=== PATIENT | female | born 1935 | race Caucasian/White ===

== ENCOUNTER → 2018-06-12 15:59 | Outpatient (CLI) | payer MEDICARE, OTHER, SELFPAY ==
[2018-06-12 17:53] LABS: RBC /Synovial Fluid 0.196 10^6/uL (0); Synovial Fld Mononuclear WBC % 64.3 %; Synovial Fld Polynuclear WBC # 0.467 10^3/ul; Synovial Fld Polynuclear WBC % 35.7 %
[2018-06-12 19:14] LABS: AUTO B FLUID DILUENT BKGD CT WBC <0.1 RBC <0.01 (W<.1,R<.01); Appearance /Synovial Fluid Turbid (CLEAR); Color / Synovial Fluid Red (Pale Yellow); Lymph 17 %; Monocyte /Synovial Fluid 32 %; Neutrophil 42 % (0-25); Other Cell /Synovial Fluid 9 %; Viscosity / Synovial Fluid Mod. Viscous (HIGH)
[2018-06-12 19:16] LABS: Body Fluid QC Type(s) BFQC2
[2018-06-13 13:08] LABS: Pathologist Comment Reviewed
== END ==
PROVIDERS: Family Provider Family Medicine; PCP Family Medicine; Referring Provider Physician Assistant; Visit Provider Physician Assistant
DX: M25.461 Effusion, right knee (principal); Z96.651 Presence of right artificial knee joint
CPT/HCPCS: 87015; 87070; 87075; 87101; 87116; 87205; 87206; 89050; 89051

== ENCOUNTER → 2018-06-26 13:00 | Outpatient (CLI) | payer MEDICARE, OTHER, SELFPAY ==
--- NOTE | 2018-06-26 13:07 | CT_ITS ---
Exam: Noncontrast CT of the right knee. HISTORY: Total knee arthroplasty, with pain. COMPARISON: None FINDINGS: Exam is limited by metal artifact from a medial partial knee arthroplasty. No definite abnormality or complication is seen related to the medial partial knee arthroplasty. The medial femoral condyle component and the medial tibial plateau components align normally and show no evidence for loosening. However, there is markedly abnormal appearance of the lateral compartment. There is comminuted markedly depressed fracture of the articular surface of the lateral tibial plateau. There is a hemispheric excavation approximately 1 cm deep from the level of the normal expected position of the articular surface, to the caudal margin of the fracture. There is also an abnormal appearance of the lateral femoral condyle suspicious for avascular necrosis. There is narrowing of the lateral tibiofemoral compartment. Normal position of the patella. There is moderate patellofemoral osteoarthritis. There is a moderate effusion. There is generalized demineralization. Normal proximal tibiofibular articulation. CT/Extremity Lower without Contra IMPRESSION: Images are degraded by metal artifact. However there is clearly comminuted markedly depressed fracture of the lateral tibial plateau. Possible avascular necrosis of the lateral femoral condyle. Effusion. Electronically Signed: Jose Donaldson MD at 21:58 EST , Service support ,
== END ==
PROVIDERS: Family Provider Family Medicine; PCP Family Medicine; Referring Provider Specialist; Visit Provider Specialist
DX: Z96.651 Presence of right artificial knee joint (principal)
CPT/HCPCS: 73700

== ENCOUNTER 2018-07-23 07:20 | Inpatient (IN) | payer MEDICARE, OTHER, SELFPAY ==
--- NOTE | 2018-07-11 14:50 | EKG12_ITS ---
Test Reason : Blood Pressure : / mmHG Vent. Rate : 087 BPM Atrial Rate : 087 BPM P-R Int : 150 ms QRS Dur : 066 ms QT Int : 356 ms P-R-T Axes : 035 003 011 degrees QTc Int : 428 ms Poor data quality, interpretation may be adversely affected Normal sinus rhythm No previous ECGs available Confirmed by ETIENNE BAILEY MD ([id number]), film editor supervisor EDISON RODRÍGUEZ ([id number]) on 07/15/2018 4:01:23 PM Also confirmed by ETIENNE BAILEY MD ([id number]), film editor supervisor EDISON RODRÍGUEZ ([id number]) on 07/15/2018 4:10:20 PM Referred By: Jer Castle Confirmed By:ETIENNE BAILEY MD
[2018-07-11 14:57] VITALS: BP 150/83; PULSE 89; RESP 18; TEMP 36.7; O2SAT 98; BMI 32.4
[2018-07-11 15:38] LABS: Absolute Lymphocyte Count 1.58 X10^3/ul (0.83-4.51); Absolute Neutrophil Count 6.5 X10^3/uL (2.0-7.7); Basophil# 0.02 X10^3/uL; Basophil% 0.2 % (0-1); Eosinophil# 0.06 X10^3/uL; Eosinophils% 0.7 % (0-5); Hematocrit 34.3 % (37-47); Hemoglobin 11.3 g/dl (12.0-15.0); Lymphocyte # 1.58 X10^3/ul (4.0); Lymphocyte % 17.8 % (19-41); Mean Corp Hgb Conc 32.9 g/gl (32-36); Mean Corpuscular Volume 87.9 fL (81-99); Mean Platelet Vol. 9.5 fl (6.2-12.0); Monocyte# 0.71 X10^3/uL; Neutrophil # 6.51 X10^3/uL (2.7-7.7); Neutrophil % 73.2 % (47-70); Platelet Count 340 K/mm3 (150-450); RBC Distribution Width CV 14.3 % (11.6-14.6); RBC Distribution Width SD 45.9 fl (35.1-43.9); White Blood Count 8.9 K/mm3 (4.4-11.0)
[2018-07-11 15:42] LABS: POSITIVE COUNT NO; POSITIVE DIFFERENTIAL NO; POSITIVE MORPHOLOGY NO
[2018-07-11 16:03] LABS: Anion Gap 6 (5-15); BUN 20 mg/dL (7-18); BUN/Creat Ratio 26.8 RATIO (10-20); Chloride 99 mmol/L (98-107); Creatinine, Serum 0.74 mg/dL (0.55-1.02); EST Glomerular Filtration Rate 79 mL/min (>60); Est Glom Filt Rate - Afr Amer 95 mL/min (>60); Estimated Creatinine Clearance 45.78 ml/min; Glucose 94 mg/dL (74-106); Potassium 3.7 mmol/L (3.5-5.1); Sodium Level 133 mmol/L (136-145)
--- NOTE | 2018-07-11 22:35 | HP.PCM_ITS ---
History and Physical DATE OF SURGERY: 07/23/2018 SCHEDULED PROCEDURE: Revision right unicompartmental knee replacement to right total knee arthroplasty HISTORY OF PRESENT ILLNESS: This is an 82-year-old female who has been having ongoing right knee pain since January 2018. Patient underwent a previous right unicompartmental knee replacement by Dr. Andi Norton on January 18, 2009. Patient does not recall any new trauma or injury. Patient states her pain has been constant, dull, aching, sharp, stabbing, sore. Pain is increased with stairs, driving, sitting for extended periods of time, and walking. Patient has difficult time with activities of daily living that require bathing, getting dressed, housework, shopping. She has tripped/stumbled secondary to her knee pain. She has very difficult time doing anything with activities of daily living. Patient did have a previous aspiration of the right knee which was negative for infection. She has been through physical therapy for the knee. She does have increasing pain on the left side now. Patient has tried rest, ice, elevation with minimal relief. She has been on oral medications consisting of meloxicam, tramadol, Tylenol with minimal relief. Patient states she has been using a cane, walker, and wheelchair due to the pain. She has tried a brace in the past without relief. Patient did have a CT scan of the right knee which did confirm lateral tibial plateau fracture likely related to subchondral avascular necrosis. Her pain can reach as high as a 10/10. Patient has medical history pertinent for hypertension. She currently denies chest pain, shortness of breath, fevers chills, recent infections. We are obtaining surgical clearance from patient's primary care physician. After failing conservative measures and discussing treatment options with Dr. Jer Castle, the patient would like to proceed with a revision right unicompartmental knee replacement to a total knee arthroplasty. REVIEW OF SYSTEMS: ROS: Const: Denies anorexia, change in appetite, fever, hard of hearing, vision problems and weight change. CV: Denies chest pain, heart murmur, irregular heartbeat and peripheral vascular disease. Resp: Denies asthma, cough, pneumonia, sleep apnea, SOB, tuberculosis and wheezing. GI: Denies constipation, diarrhea, difficulty swallowing, heartburn, nausea, b loody stools and vomiting. : Urinary: reports incontinence. Musculo: Denies leg swelling, limp, trouble walking and weakness. Skin: Denies Raynaud's, history of shingles and tattoo. Neuro: Denies ambulatory dysfunction, dizziness, numbness/tingling and tremor. Psych: Denies anxiety, depression, insomnia, mental illness and stress. Gamal/Lymph: Denies anemia, bleeding/bruising tendency and past transfusion. Reviewed, no changes. PAST MEDICAL HISTORY: Advance Care Plan: Other Directive, POA Effective Date: 06/20/2016 Other Directive, LIVING WILL Effective Date: 06/20/2016 PMH: Medical Problems: Arthritis Cancer - skin High Blood Pressure, Hypercholesterolemia Accidents: RT Wrist FX - (02/04/2012) Compression FX - (10/2012) FALL LT Wrist FX - (10/01/2016) Surgical Hx: RT Knee Uni - (01/18/2009) [facility] RT Foot Surgery - (05/2011) [facility] RT Cataract Surgery - (01/28/2012) DR. NELSON Anesthesia Complications: None Assistive Devices: Brace, Cane, Glasses Reviewed, no changes. SOCIAL HISTORY: SH: Marital: .Occupation: Retired.Work Status: Retired.Hand Dominance: Right- handed. Personal Habits: Smoking: Patient has never smoked.Cigarette Use: Never.Alcohol: Denies use.Drug Use: Denies Use.Enjoy Exercising: Exercises 1-3 x/month. Reviewed, no changes. VITALS: Ht: 57.5 Wt: 150lb Wt k.040 BMI: 31.9 BP: 148/78 Pulse: 84 Resp: 18 T: 97.6 T: 36.4C ALLERGIES: Sulfa Bactrim MEDICATIONS: Crestor 10 mg 1 po DAILY, Fish Oil 1200 mg 1-2 po qday, Vitamin D 1000 Unit 1 tab PO daily, Caleb Low Strength 81 mg 1 tab PO daily, Calcium 600 600 mg 1 tab PO bid, Preservision/Lutein 1 po bid, Centrum Silver Ultra Womens daily, Norvasc 5 mg 1 tab PO daily, Hydrochlorothiazide 12.5 mg, Latanoprost 0.005 %, Amoxicillin 500 mg 4 by mouth 1 h prior to dental procedure, Meloxicam 7.5 mg 1 by mouth twice a day, Tramadol HCL 50 mg 1-2 by mouth every 6 hours as needed pain PRE-OP EXAM: General appearance:NORMAL Other: Eyes: Conjunctivae and lids: NORMAL Pupils: ERR Ears, Nose, Mouth, and Throat: NORMAL Other: Inspection of lips, teeth and gums: NORMAL Other: Neck: Examination of neck: no masses noted. Respiratory: Assessment of respiratory effort: NORMAL Other: Auscultation of lungs: clear to auscultation no wheezes, rhonchi or rales. Cardiovascular: Auscultation of heart: regular rate and rhythm, no murmurs, gallops or rubs. Gastrointestinal: Exam of abdomen: soft, nontender, nondistended bowel sounds present. PHYSICAL EXAMINATION: A preoperative visit patient currently presents in a wheelchair. Patient does have valgus alignment of the right knee. This is correctable on exam. Range of motion: 0 of extension to 100 flexion. Previous incision is well healed without any erythema or signs of infection. Patient does have effusion in the right knee. She has tenderness to palpation along the medial lateral joint line. Crepitus with range of motion. IMAGING STUDIES: 1. X-rays of the right knee reveal a stable well fixed right medial compartment partial knee replacement. There does appear to be progressive joint space narrowing of patellofemoral joint with loss of joint space, subchondral sclerosis, as well as subchondral sclerosis in the lateral compartment. There is radio density concerning for stress fracture which is healing and the proximal condyle of the tibia. 2. CT scan of the right knee did reveal lateral tibial plateau fracture likely related to subchondral avascular necrosis and collapse of the articular surface with bone void underneath. There is similar appearance of the distal femoral condyle without subchondral collapse consistent with avascular necrosis. IMPRESSION: 1. Painful right knee unicompartmental replacement 2. Lateral tibial plateau fracture right knee with avascular necrosis 3. Left knee osteoarthritis 4. Hypertension 5. Hypercholesterolemia PLAN: Dr. Jer Castle did discuss and review with the patient all treatment options including surgical versus nonsurgical options. Patient does wish to proceed with the above-stated procedure. Potential risks, benefits, and complications of the procedure were discussed in detail including but not limited to , infection, nerve and blood vessel damage, persistent pain, numbness, tingling, paresthesias, blood clot, pulmonary embolism, and requirement for possible further surgery. The patient expressed full understanding and has no further questions for the doctor. Patient does agree to proceed with the above-stated procedure and has signed the surgery consent form. This dictation was created using voice recognition software. Phonetic and/or grammatical errors may exist.. ___ I have re-examined the patient. There are no clinical changes since date of exam. ___ See progress notes for changes. ___ Dictated on admission Date: Time: Signature:
[2018-07-23] VITALS (12 sets, daily range): BP systolic 96–149; BP diastolic 47–95; PULSE 66–106; RESP 16–20; TEMP 36.2–37; O2SAT 95–100; BMI 32.4
[2018-07-23] MEDS: Acetaminophen 500 MG Tablet 1000 MG PO ×3 (08:12→22:22)
[2018-07-23] MEDS: Lactated Ringers 1,000 ML 999 ML IV ×2 (08:30→09:30)
[2018-07-23] MEDS: Cefazolin 2 GM in 0.9% Normal Saline 100 ML IV (09:22)
[2018-07-23] MEDS: Scopolamine 1mg/72hr Patch 1 PATCH TD (12:53)
--- NOTE | 2018-07-23 13:12 | RAD_ITS ---
STUDY: X-RAY - RIGHT KNEE REASON FOR EXAM: Female, 82 years old. Post op total knee revision TECHNIQUE: 2 view(s) of the knee. COMPARISON: 06/26/2018. Findings: There is a recent total knee arthroplasty. The femoral and tibial components appear in satisfactory position. There has been patellar resurfacing. There is soft tissue air consistent with the recent surgery. The visualized femoral, tibial, and fibular shafts are unremarkable. RAD/Knee 1 or 2 Views IMPRESSION: Satisfactory appearance of a total knee arthroplasty. Electronically Signed: Jose Donaldson MD at 14:08 EDT , Service support ,
[2018-07-23] MEDS: Lactated Ringers 1,000 ML 125 ML IV (14:24)
[2018-07-23] MEDS: Morphine 2 MG/ML Syringe IV (14:58)
[2018-07-23] MEDS: 0.9% NaCl Peripheral Flush Adult/Peds IV (14:58)
--- NOTE | 2018-07-23 15:38 | PCM.PN.HOSP ---
Subjective: Consult requested by Dr. Castle for post-op medical mgmt. Patient feels good post-op. Pain in right knee is minimal. Vitals/I&O's: Vital Signs Temp Pulse Resp BP Pulse Ox 36.3 C L 100 18 149/67 H 97 07/23/18 14:15 07/23/18 14:15 07/23/18 14:15 07/23/18 14:15 07/23/18 14:15 Oxygen Delivery Method Room Air Weight: 68.039 kg Body Mass Index (BMI) 32.4 Intake and Output for Last 24 Hours 07/21/18 07/22/18 07/23/18 23:59 23:59 23:59 Intake Total 1500 / 1500 Balance 1500 / 1500 General: Alert, No apparent distress HEENT: Atraumatic, Normocephalic Oral: Moist Mucosa, No Gingival or Mucosal Lesions/ Ulcerations Neck: No Nodes, Thyroid Normal Size and Texture Lungs: Clear to auscultation, Normal air movement, No rhonchi, No wheeze Cardiovascular: Regular rate, Regular Rhythm, Normal S1, Normal S2 Abdomen: Bowel Sounds Present, Soft, Non Tender, Non-Distended, No Hepato-splenomegaly Extremities: No edema, No Calf Tenderness Psych/Mental Status: Normal Affect, Appropriate Microbiology Past 72 Hours 07/23/18 12:39 Tissue - Knee Gram Stain - Final 07/23/18 12:39 Tissue - Knee Gram Stain - Final 07/23/18 12:39 Tissue - Knee Gram Stain - Final Current Medications Acetaminophen (Tylenol) 1,000 mg PO Q8 [facility] Amlodipine Besylate (Norvasc) 5 mg PO DAILY [facility]ir[facility], [facility]) [facility] Atorvastatin Calcium (Lipitor) 20 mg PO QHS [facility] Calcium/Vitamin D (Os-Qamar 500mg + D) [facility] tablet [facility] Famotidine (Pepcid) 20 mg PO DAILY [facility] Ferrous Sulfate (Ferrous Sulfate) 325 mg PO BID@1200,1700 [facility] Folic Acid (Folic Acid) [facility] Hydrochlorothiazide () 12.5 mg PO DAILY [facility] Cefazolin Sodium () 1 gm in 50 mls @ 150 mls/hr IV Q8H [facility] Stop: 07/24/18 01:49 Lactated Ringer's () 1,000 mls @ 125 mls/hr IV .Q8H [facility] Last Admin: 07/23/18 14:24 Dose: 125 mls/hr Ketorolac Tromethamine (Toradol) 15 mg IV Q6H PRN PRN PRN Reason: MILD-MOD PAIN (1-5/10) Latanoprost (Xalatan Opthalmic) 1 drop EACH EYE QHS [facility] Meloxicam (Mobic) 7.5 mg PO BID [facility] Morphine Sulfate () 2 - 4 mg IV Q2H PRN PRN PRN Reason: SEVERE PAIN (6-10/10) Last Admin: 07/23/18 14:58 Dose: 2 mg Morphine Sulfate () 2 - 4 mg IV Q2H PRN PRN PRN Reason: SEVERE PAIN (6-10/10) Multivitamins/Minerals (Multivitamin With Minerals) 1 tablet PO DAILY@0800 [facility] Multivitamins/Minerals (Healthy Eyes) 1 capsule PO DAILYCM [facility] Nutritional Formula (Lactose Free) (Ensure Clear) 120 ml PO TIDCM [facility] Ondansetron HCl (Zofran) 4 mg IV Q8H PRN PRN PRN Reason: NAUSEA Oxycodone HCl (Oxyir) 5 - 10 mg PO Q4H PRN PRN PRN Reason: MOD-SEVERE PAIN (4-10/10) Promethazine HCl (Phenergan) 12.5 mg IM Q6H PRN PRN; Protocol PRN Reason: NAUSEA/VOMITING Senna/Docusate Sodium (Senokot-S, Kaycee-Colace) 2 tablet PO BID [facility] Sodium Chloride () 5 - 15 ml IV UD PRN PRN Reason: SALINE FLUSH Last Admin: 07/23/18 14:58 Dose: 10 ml Medical Necessity - Tobacco Use Smoking Status: Never smoker Assessment/Plan 1. status post right TKA doing well post-operatively PT OT mgmt per ortho pain control with acetaminophen, oxycodone and morphine IV DC meloxicam while on ASA for DVT prophylaxis, can resume when ASA completed. 2. HTN controlled continue amlodipine, HCTZ 3. Glaucoma stable continue latanoprost 4. DVT proph: ASA 81 BID Thank you for the consult. The hospitalist service will continue to follow during the hospitalization. Code Visit Inpatient E&M: 50454 Subs Hosp L2
--- NOTE | 2018-07-23 15:46 | PN_ITS ---
Subjective: Consult requested by Dr. Castle for post-op medical mgmt. Patient feels good post-op. Pain in right knee is minimal. Vitals/I&O's: Vital Signs Temp Pulse Resp BP Pulse Ox 36.3 C L 100 18 149/67 H 97 07/23/18 14:15 07/23/18 14:15 07/23/18 14:15 07/23/18 14:15 07/23/18 14:15 Oxygen Delivery Method Room Air Weight: 68.039 kg Body Mass Index (BMI) 32.4 Intake and Output for Last 24 Hours 07/21/18 07/22/18 07/23/18 23:59 23:59 23:59 Intake Total 1500 / 1500 Balance 1500 / 1500 General: Alert, No apparent distress HEENT: Atraumatic, Normocephalic Oral: Moist Mucosa, No Gingival or Mucosal Lesions/ Ulcerations Neck: No Nodes, Thyroid Normal Size and Texture Lungs: Clear to auscultation, Normal air movement, No rhonchi, No wheeze Cardiovascular: Regular rate, Regular Rhythm, Normal S1, Normal S2 Abdomen: Bowel Sounds Present, Soft, Non Tender, Non-Distended, No Hepato- splenomegaly Extremities: No edema, No Calf Tenderness Psych/Mental Status: Normal Affect, Appropriate Microbiology Past 72 Hours 07/23/18 12:39 Tissue - Knee Gram Stain - Final 07/23/18 12:39 Tissue - Knee Gram Stain - Final 07/23/18 12:39 Tissue - Knee Gram Stain - Final Current Medications Acetaminophen (Tylenol) 1,000 mg PO Q8 [facility] Amlodipine Besylate (Norvasc) 5 mg PO DAILY [facility]) [facility] Atorvastatin Calcium (Lipitor) 20 mg PO QHS [facility] Calcium/Vitamin D (Os-Qamar 500mg + D) [facility] Famotidine (Pepcid) 20 mg PO DAILY [facility] Ferrous Sulfate (Ferrous Sulfate) 325 mg PO BID@1200,1700 [facility] Folic Acid (Folic Acid) [facility] Hydrochlorothiazide () 12.5 mg PO DAILY [facility] Cefazolin Sodium () 1 gm in 50 mls @ 150 mls/hr IV Q8H [facility] Stop: 07/24/18 01:49 Lactated Ringer's () 1,000 mls @ 125 mls/hr IV .Q8H [facility] Last Admin: 07/23/18 14:24 Dose: 125 mls/hr Ketorolac Tromethamine (Toradol) 15 mg IV Q6H PRN PRN PRN Reason: MILD-MOD PAIN (1-5/10) Latanoprost (Xalatan Opthalmic) 1 drop EACH EYE QHS [facility] Meloxicam (Mobic) 7.5 mg PO BID [facility] Morphine Sulfate () 2 - 4 mg IV Q2H PRN PRN PRN Reason: SEVERE PAIN (6-10/10) Last Admin: 07/23/18 14:58 Dose: 2 mg Morphine Sulfate () 2 - 4 mg IV Q2H PRN PRN PRN Reason: SEVERE PAIN (6-10/10) Multivitamins/Minerals (Multivitamin With Minerals) 1 tablet PO DAILY@0800 [facility] Multivitamins/Minerals (Healthy Eyes) 1 capsule PO DAILYCM [facility] Nutritional Formula (Lactose Free) (Ensure Clear) 120 ml PO TIDCM [facility] Ondansetron HCl (Zofran) 4 mg IV Q8H PRN PRN PRN Reason: NAUSEA Oxycodone HCl (Oxyir) 5 - 10 mg PO Q4H PRN PRN PRN Reason: MOD-SEVERE PAIN (4-10/10) Promethazine HCl (Phenergan) 12.5 mg IM Q6H PRN PRN; Protocol PRN Reason: NAUSEA/VOMITING Senna/Docusate Sodium (Senokot-S, Kaycee-Colace) 2 tablet PO BID [facility] Sodium Chloride () 5 - 15 ml IV UD PRN PRN Reason: SALINE FLUSH Last Admin: 07/23/18 14:58 Dose: 10 ml Medical Necessity - Tobacco Use Smoking Status: Never smoker Assessment/Plan 1. status post right TKA * doing well post-operatively * PT OT * mgmt per ortho * pain control with acetaminophen, oxycodone and morphine IV * DC meloxicam while on ASA for DVT prophylaxis, can resume when ASA completed. 2. HTN * controlled * continue amlodipine, HCTZ 3. Glaucoma * stable * continue latanoprost 4. DVT proph: ASA 81 BID Thank you for the consult. The hospitalist service will continue to follow during the hospitalization. Code Visit Inpatient E&M: 12038 Subs Hosp L2
--- NOTE | 2018-07-23 15:59 | PCM.OPRPT ---
Report of Operation Date of Procedure: 07/23/18 Pre-Operative Diagnosis: Failed right partial knee replacement, progressive osteoarthritis, subchondral fracture lateral distal femur Post-Operative Diagnosis: Failed right partial knee replacement, progressive osteoarthritis, subchondral fracture lateral distal femur Surgery/Procedure Performed:: Revision right total knee replacement entire femoral and tibial components. Description of Surgical Findings:: Stable knee with good patella tracking. traveling passenger agent: Leonarda Wiseman Type of Anesthesia:: Spinal Anesthesiologist: Dilan Saavedra Special Medications: 2 g Ancef, 1 g TXA at incision, 1 g TXA closure, 10 mg Decadron, joint cocktail (5 mg Duramorph, 30 mL of 0.5% Ropivicaine, 1000 units of epinephrine, 30 mg of Toradol) Specimen's removed: 3 separate specimens were sent to microbiology Estimated Blood Loss (mL): 100 Fluids Replaced: 800 mL crystalloid Description of Procedure: Implants used: 1. [place] size 2 triathlon total stabilized distal femoral component with 15 x 50 mm cemented stem 2. [place] size 2 universal tibial baseplate with 5 mm medial augment and 12 x 50 mm cemented stem 3. [place] X3 16 mm TS polyethylene 4. [place] X3 29 mm asymmetric patella Brief history operative indications: 82-year-old f with history of right knee osteoarthritis and medial compartment partial knee replacement with radiographic findings with loss of joint space, osteophyte formation and subchondral sclerosis. Patient also had findings consistent with subchondral fracture of the lateral distal femur. Failed conservative measures as mentioned in the H&P. Discussion of total knee arthroplasty as well as risk and benefits were discussed the patient including but not limited to blood loss, DVTs, PEs, neurovascular damage, general risk of anesthesia including loss of life, and stiffness or instability were discussed with patient. Patient demonstrated understanding and was able to sign informed consent. Procedure: On the date of procedure patient's right lower extremity was marked in the preoperative area. The patient was then taken back to the operating room where the patient was placed on the table in the supine position. All bony prominences were identified a well-padded. Anesthesia assumed control of the C-spine and airway and remained controlled throughout the remainder of the procedure. A tourniquet was placed on the right upper thigh and the leg was prepped in a sterile fashion. The surgeon then scrubbed at this time. Upon reentering the room the right lower extremity was draped in a standard orthopedic fashion. A timeout was then called and everyone agreed upon the side, the site, the procedure to be performed, patient's identity and antibiotics given. Esmarch bandage was used to exsanguinate the extremity and the tourniquet was placed up to 250 mmHg with the knee in flexion. A midline skin incision was made and sharp dissection was taken down through skin subcutaneous tissue and fat. The standard medial parapatellar incision was made and the patella was subluxed laterally. The standard deep MCL release was done and the fat pad was resected. Next our attention was directed to the femur. Navigation pins were placed, navigation was registered. The femoral component was then removed using osteotome and salt. When removing the femoral component a bony defect was left from the cement mantle in the medial femoral condyle at this time we knew we were going to need to stem the femoral component. The distal femoral cutting block was pinned into place and 9 mm of distal femur resection was completed. The distal femoral cut was verified with navigation. The knee was then placed in deep flexion in the navigation guide was used to obtain the appropriate rotation based on the epicondylar axis. A size 2 4-in-1 cutting block was selected and pinned into place. The anterior cut was then made and checked for notching. The subsequent anterior chamfer cuts, posterior condylar cuts and posterior chamfer cuts were made while ensuring the MCL and LCL were protected. Our attention was then turned to the tibia where the navigation pins were placed, navigation was registered. Osteotome and saw were used to remove the previous tibial implant on the medial side as well as the cement mantle. Caleampricekatherine tibial cutting guide was used to make the appropriate tibial cut 90 degrees from the mechanical axis. Navigation was then used to verify the cut. A size 2 tibial base plate was selected. the knee was flexed to 90 degrees and the soft tissues and posterior osteophytes were removed from the joint. 40 cc of the periarticular injection was injected into the posterior medial corner of the joint. The knee was then flexed and notch cut was made. We also reamed the femoral canal for the stem. The appropriate trials were then placed on the femur and tibia. A trial polyethylene was trialed to ensure proper balancing and stability of the knee. Patella tracking, was then verified and corrected appropriately as needed. The appropriate tibial internal rotation was then marked with a bovie. Our attention was then directed to the patella. The patella was everted and a flat resection was made. The lug holes were drilled and the patella trial was placed. Patellar tracking was checked and deemed appropriate. Once we were happy lug holes were drilled for the femur and trial components were removed. the tibia was subluxed and pinned into place and the keel was punched and the canal was reamed. Final components were verified and opened, and cement was mixed in a vacuum. TranZfinity Simplex cement was used. The wound was copiously irrigated with normal saline. When the cement was ready the components were cemented into place starting with the tibia, femur and finally the patella. The trial poly component was placed and the knee was placed in full extension. All excess cement was removed in the process. Once the cement had cured the tracking, alignment and balance were verified and a size 16 mm polyethylene component was placed. Once the final components were placed the wound was copiously irrigated with normal saline solution and the periarticular injection was given. The wound was closed in a layer kellogg fashion using #1 vicryl interrupted sutures for the arthrotomy, 2-0 interrupted Vicryl suture for the subcuticular layer and tanmay for final skin closure. A sterile compressive dressing was then placed. The patient was then awakened from anesthesia, transferred to the [facility] and transferred to the PACU for recovery. Post op plan DVT ppx: 81 mg asa bid, thigh high compression stockings Follow up: in office in 2 weeks for wound check PT: to start POD #0 at hospital, outpatient PT should be arranged. - Complications No intraoperative complications - Admit VTE Documentation VTE Present on Admission: No VTE Mechan Device Prophylaxis: SCD's, Thigh High KAMAR Hose VTE Pharm Prophylaxis ordered?: Yes
[2018-07-23] MEDS: Folic Acid 1 MG Tablet PO (16:09)
[2018-07-23] MEDS: hydroCHLOROthiazide 12.5mg 12.5 MG PO (16:09)
[2018-07-23] MEDS: Famotidine 20 MG Tablet PO (16:10)
[2018-07-23] MEDS: Senna/Docusate Sodium 1 Tablet 2 TABLET PO ×2 (16:10→22:22)
[2018-07-23] MEDS: Aspirin 81 MG TAB.CHEW PO (16:12)
[2018-07-23] MEDS: Ferrous Sulfate 325 MG Tablet PO (16:20)
[2018-07-23] MEDS: Ensure Clear 120 ML Liquid PO (16:23)
[2018-07-23] MEDS: Cefazolin 1 GM/50 ML BAG IV (16:23)
[2018-07-23] MEDS: oxyCODONE 5 MG Tablet PO (18:06)
[2018-07-23] MEDS: Latanoprost 0.005% 1 Bottle 1 DRP EACH EYE (22:22)
[2018-07-23] MEDS: Atorvastatin Calcium 20 MG Tablet PO (22:22)
[2018-07-23] MEDS: Ketorolac 15 MG/ML Vial IV (22:23)
[2018-07-24] MEDS: Cefazolin 1 GM/50 ML BAG IV (01:58)
[2018-07-24 04:15] VITALS: BP 150/66; PULSE 95; RESP 18; TEMP 36.9; O2SAT 97
[2018-07-24 05:30] LABS: Hematocrit 27.4 % (37-47); Hemoglobin 8.7 g/dl (12.0-15.0); Mean Corp Hgb Conc 31.8 g/gl (32-36); Mean Corpuscular Hgb 28.7 pg (27.0-32.0); Mean Corpuscular Volume 90.4 fL (81-99); Mean Platelet Vol. 9.8 fl (6.2-12.0); Platelet Count 276 K/mm3 (150-450); RBC Distribution Width CV 14.4 % (11.6-14.6); RBC Distribution Width SD 46.3 fl (35.1-43.9); Red Blood Count 3.03 M/mm3 (4.2-5.4); White Blood Count 7.8 K/mm3 (4.4-11.0)
[2018-07-24 05:31] LABS: Scan Indicated on CBC? Y/N NO
[2018-07-24 05:59] LABS: Anion Gap 6 (5-15); BUN 18 mg/dL (7-18); BUN/Creat Ratio 23.6 RATIO (10-20); Calcium,Total 8.5 mg/dL (8.5-10.1); Chloride 101 mmol/L (98-107); Creatinine, Serum 0.76 mg/dL (0.55-1.02); EST Glomerular Filtration Rate 77 mL/min (>60); Est Glom Filt Rate - Afr Amer 93 mL/min (>60); Estimated Creatinine Clearance 45.78 ml/min; Glucose 112 mg/dL (74-106); Potassium 3.8 mmol/L (3.5-5.1); Sodium Level 136 mmol/L (136-145)
[2018-07-24] MEDS: Acetaminophen 500 MG Tablet 1000 MG PO ×3 (06:10→21:36)
[2018-07-24] MEDS: oxyCODONE 5 MG Tablet PO ×2 (08:33→17:17)
--- NOTE | 2018-07-24 08:44 | PCM.PN.ORT ---
Subjective: The patient was sitting in bedside chair upon examination. Patient denies any chest pain, shortness of breath, dizziness, lightheadedness, nausea or vomiting, or calf pain. Pain is controlled on medications. No adverse overnight events. Overall patient is doing well. Patient does state she requires further visitor service assistant postoperatively due to living at home and having no assistance. Case management is involved. Objective: Vital signs stable and afebrile. Patient is able to plantarflex and dorsiflex actively. Sensation is intact to light touch to saphenous, sural, superficial and deep peroneal, and tibial distribution. Dressing is clean dry and intact. Negative Homans bilaterally, negative signs and symptoms of DVT. - Physical Exam General: Alert, Oriented x3, Cooperative, No apparent distress Vital Signs Temp Pulse Resp BP Pulse Ox 98.5 F 95 18 150/66 H 97 07/24/18 04:15 07/24/18 04:15 07/24/18 04:15 07/24/18 04:15 07/24/18 04:15 Oxygen Delivery Method Room Air Weight: 68.039 kg Body Mass Index (BMI) 32.4 Intake and Output for Last 24 Hours 07/22/18 07/23/18 07/24/18 23:59 23:59 23:59 Intake Total 2685 / 2685 1031 / 1031 Output Total 800 / 800 1900 / 1900 Balance 1885 / 1885 -869 / -869 Microbiology Past 72 Hours 07/23/18 12:39 Gram Stain - Final Tissue - Knee 07/23/18 12:39 Gram Stain - Final Tissue - Knee 07/23/18 12:39 Gram Stain - Final Tissue - Knee Laboratory Tests Past 24 Hrs 07/24/18 07/24/18 04:52 04:52 WBC 7.8 RBC 3.03 L Hgb 8.7 L Hct 27.4 L MCV 90.4 MCH 28.7 MCHC 31.8 L RDW 14.4 RDW Differential 46.3 H Plt Count 276 MPV 9.8 Sodium 136 Potassium 3.8 Chloride 101 Carbon Dioxide 29.0 Anion Gap 6 BUN 18 Creatinine 0.76 Estim Creat Clear Calc 45.78 Est GFR (MDRD) Af Amer 93 Est GFR (MDRD) Non-Af 77 BUN/Creatinine Ratio 23.6 H Glucose 112 H Calcium 8.5 Medical Necessity - Tobacco Use Smoking Status: Never smoker Assessment/Plan 1. S/P revision right total knee replacement POD #1 2. Continue Pain Medications: Tylenol and oxycodone 3. DVT Prophylaxis: Aspirin 81 mg twice daily for 4 weeks postoperatively 4. PT/OT: Weightbearing as tolerated 5. H & H: 8.7/27.4, asymptomatic 6. Encouraged Incentive Spirometry 7. Continue postoperative medical management per medicine 8. Disposition: Case management is involved with regards to appropriate placement. Patient lives home alone and has no assistance. Plan will be for discharge to longterm facility. Patient will require 3 night stay.
--- NOTE | 2018-07-24 08:47 | PN.ORTHO_ITS ---
Subjective: The patient was sitting in bedside chair upon examination. Patient denies any chest pain, shortness of breath, dizziness, lightheadedness, nausea or vomiting, or calf pain. Pain is controlled on medications. No adverse overnight events. Overall patient is doing well. Patient does state she requires further lpn medical assistant postoperatively due to living at home and having no assistance. Case management is involved. Objective: Vital signs stable and afebrile. Patient is able to plantarflex and dorsiflex actively. Sensation is intact to light touch to saphenous, sural, superficial and deep peroneal, and tibial distribution. Dressing is clean dry and intact. Negative Homans bilaterally, negative signs and symptoms of DVT. - Physical Exam General: Alert, Oriented x3, Cooperative, No apparent distress Vital Signs Temp Pulse Resp BP Pulse Ox 98.5 F 95 18 150/66 H 97 07/24/18 04:15 07/24/18 04:15 07/24/18 04:15 07/24/18 04:15 07/24/18 04:15 Oxygen Delivery Method Room Air Weight: 68.039 kg Body Mass Index (BMI) 32.4 Intake and Output for Last 24 Hours 07/22/18 07/23/18 07/24/18 23:59 23:59 23:59 Intake Total 2685 / 2685 1031 / 1031 Output Total 800 / 800 1900 / 1900 Balance 1885 / 1885 -869 / -869 Microbiology Past 72 Hours 07/23/18 12:39 Gram Stain - Final Tissue - Knee 07/23/18 12:39 Gram Stain - Final Tissue - Knee 07/23/18 12:39 Gram Stain - Final Tissue - Knee Laboratory Tests Past 24 Hrs 07/24/18 07/24/18 04:52 04:52 WBC 7.8 RBC 3.03 L Hgb 8.7 L Hct 27.4 L MCV 90.4 MCH 28.7 MCHC 31.8 L RDW 14.4 RDW Differential 46.3 H Plt Count 276 MPV 9.8 Sodium 136 Potassium 3.8 Chloride 101 Carbon Dioxide 29.0 Anion Gap 6 BUN 18 Creatinine 0.76 Estim Creat Clear Calc 45.78 Est GFR (MDRD) Af Amer 93 Est GFR (MDRD) Non-Af 77 BUN/Creatinine Ratio 23.6 H Glucose 112 H Calcium 8.5 Medical Necessity - Tobacco Use Smoking Status: Never smoker Assessment/Plan 1. S/P revision right total knee replacement POD #1 2. Continue Pain Medications: Tylenol and oxycodone 3. DVT Prophylaxis: Aspirin 81 mg twice daily for 4 weeks postoperatively 4. PT/OT: Weightbearing as tolerated 5. H & H: 8.7/27.4, asymptomatic 6. Encouraged Incentive Spirometry 7. Continue postoperative medical management per medicine 8. Disposition: Case management is involved with regards to appropriate placement. Patient lives home alone and has no assistance. [facility] Patient will require 3 night stay.
[2018-07-24 10:15] VITALS: BP 138/45; PULSE 96; RESP 18; TEMP 36.7; O2SAT 95
[2018-07-24] MEDS: Ferrous Sulfate 325 MG Tablet PO ×2 (10:24→17:14)
[2018-07-24] MEDS: Calcium Carb/Vitamin D 1 TABLET Tablet PO (10:24)
[2018-07-24] MEDS: amLODIPine 5 MG Tablet PO (10:24)
[2018-07-24] MEDS: hydroCHLOROthiazide 12.5mg 12.5 MG PO (10:24)
[2018-07-24] MEDS: Multivitamins,Ther W-Minerals Tablet 1 TABLET PO (10:24)
[2018-07-24] MEDS: Folic Acid 1 MG Tablet PO ×2 (10:24→17:14)
[2018-07-24] MEDS: Multivitamin (Healthy Eyes) Capsule 1 CAP PO (10:25)
[2018-07-24] MEDS: Aspirin 81 MG TAB.CHEW PO ×2 (10:25→17:14)
[2018-07-24] MEDS: Famotidine 20 MG Tablet PO (10:25)
[2018-07-24] MEDS: Meloxicam 7.5 MG Tablet PO ×2 (10:25→21:37)
[2018-07-24] MEDS: Ensure Clear 120 ML Liquid PO ×2 (10:28→17:14)
--- NOTE | 2018-07-24 11:20 | CASEMGMT ---
HERMELINDO TORREZ Face to Face with patient for initial transition planning/care coordination assessment. HERMELINDO TORREZ introduced self and role at [facility]. Patient lying in bed, alert and oriented. Patient willing to participate in assessment and is able to answer all questions appropriately. Care providers, pharmacy, and demographics verified. Patient wishes to discharge to SNF with [facility] as her first choice and [facility] as her second choice. Patient states she has no further needs or concerns at this time. SHELBIE Sheth updated regarding request for TCU. PCP: Anselmo Castle Specialists: Jacquelin podiatrto Preferred Pharmacy: [facility] Insurance: [facility] Prescription Benefit: yes Living Will/HPOA: yes hernandez Crane and Agustin Davis LNOK: Hernandez Living Arrangements: Patient lives alone in 1 story home with 2 step and grab bar to enter the home. Patient states she is independent with self care but needs help with cooking and cleaning. Transportation: [facility] DME/HHC: Patient states she has shower chair, BSC, cane, walker and grab bars. Denies home oxygen, bipap, cpap, or nebulizer. No previous SNF or HHC. Disposition Plan: SNF pending acceptance and qualifying stay Hollie CAMPUZANO, RN, CM
--- NOTE | 2018-07-24 11:20 | CASEMGMT ---
Social Work Note RN LORE Pugh updated this worker that pt is interested in TCU. SW placed a call to Jesika with [facility], states she will have a bed by Saturday for pt. Pt updated. Plan: TCU Saturday Hollie Sheth ORE FEEDER, MACHINE PLUG SHAPER
[2018-07-24] MEDS: 0.9% NaCl Peripheral Flush Adult/Peds IV (12:17)
[2018-07-24] MEDS: Ketorolac 15 MG/ML Vial IV (12:17)
--- NOTE | 2018-07-24 12:36 | PN_ITS ---
Subjective: Patient was seen and examined. Patient had revision right TKR after she had partial knee replacement in the past. Denies chest pain, shortness of breath, palpitation or diaphoresis. No abdominal pain. Bowel movement regular. Denies lower urinary tract symptoms. Vitals/I&O's: Vital Signs Temp Pulse Resp BP Pulse Ox 98.1 F 96 18 138/45 H 95 07/24/18 10:15 07/24/18 10:15 07/24/18 10:15 07/24/18 10:15 07/24/18 10:15 Oxygen Delivery Method Room Air Weight: 150 lb Body Mass Index (BMI) 32.4 Intake and Output for Last 24 Hours 07/22/18 07/23/18 07/24/18 23:59 23:59 23:59 Intake Total 2685 / 2685 1571 / 1571 Output Total 800 / 800 1900 / 1900 Balance 1885 / 1885 -329 / -329 General: Alert, Oriented x3, Cooperative HEENT: Atraumatic, PERRLA, EOMI, Normocephalic Neck: Supple, No JVD, Negative Carotid Bruits Lungs: Clear to auscultation, Normal air movement Cardiovascular: Regular rate, Regular Rhythm, Normal S1, Normal S2, No murmurs Abdomen: Bowel Sounds Present, Soft, Non Tender, Non-Distended Extremities: No edema, Capillary Refill Less than 3 Seconds Skin: No rashes, No breakdown Musculoskeletal: Arthritic Changes, Tenderness - Right knee surgical dressing with Tu wrap bandage. Neurological: Cranial nerves II-XII grossly intact Psych/Mental Status: Normal Affect, Appropriate Microbiology Past 72 Hours 07/23/18 12:39 Tissue - Knee Gram Stain - Final 07/23/18 12:39 Tissue - Knee Wound Culture - Preliminary No growth-Final to follow 07/23/18 12:39 Tissue - Knee Gram Stain - Final 07/23/18 12:39 Tissue - Knee Wound Culture - Preliminary No growth-Final to follow 07/23/18 12:39 Tissue - Knee Gram Stain - Final 07/23/18 12:39 Tissue - Knee Wound Culture - Preliminary No growth-Final to follow Laboratory Results 07/24/18 04:52: WBC 7.8, RBC 3.03 L, Hgb 8.7 L, Hct 27.4 L, MCV 90.4, MCH 28.7, MCHC 31.8 L, RDW 14.4, RDW Differential 46.3 H, Plt Count 276, MPV 9.8 07/24/18 04:52: Sodium 136, Potassium 3.8, Chloride 101, Carbon Dioxide 29.0, Anion Gap 6, BUN 18, Creatinine 0.76, Estim Creat Clear Calc 45.78, Est GFR (MDRD) Af Amer 93, Est GFR (MDRD) Non-Af 77, BUN/Creatinine Ratio 23.6 H, Glucose 112 H, Calcium 8.5 Current Medications Acetaminophen (Tylenol) 1,000 mg PO Q8 [facility] Last Admin: 07/24/18 06:10 Dose: 1,000 mg Amlodipine Besylate (Norvasc) 5 mg PO DAILY [facility] Last Admin: 07/24/18 10:24 Dose: 5 mg Aspir[facility] ([facility]in, Baby) [facility] Last Admin: 07/24/18 10:25 Dose: 81 mg Atorvastatin Calcium (Lipitor) 20 mg PO QHS [facility] Last Admin: 07/23/18 22:22 Dose: 20 mg Calcium/Vitamin D (Os-Qamar 500mg + D) [facility] Last Admin: 07/24/18 10:24 Dose: 1 tablet Famotidine (Pepcid) 20 mg PO DAILY [facility] Last Admin: 07/24/18 10:25 Dose: 20 mg Ferrous Sulfate (Ferrous Sulfate) 325 mg PO BID@1200,1700 [facility] Last Admin: 07/24/18 10:24 Dose: 325 mg Folic Acid (Folic Acid) [facility] Last Admin: 07/24/18 10:24 Dose: 1 mg Hydrochlorothiazide () 12.5 mg PO DAILY [facility] Last Admin: 07/24/18 10:24 Dose: 12.5 mg Ketorolac Tromethamine (Toradol) 15 mg IV Q6H PRN PRN PRN Reason: MILD-MOD PAIN (1-5/10) Last Admin: 07/24/18 12:17 Dose: 15 mg Latanoprost (Xalatan Opthalmic) 1 drop EACH EYE QHS [facility] Last Admin: 07/23/18 22:22 Dose: 1 drop Meloxicam (Mobic) 7.5 mg PO BID [facility] Last Admin: 07/24/18 10:25 Dose: 7.5 mg Morphine Sulfate () 2 - 4 mg IV Q2H PRN PRN PRN Reason: SEVERE PAIN (6-10/10) Last Admin: 07/23/18 14:58 Dose: 2 mg Morphine Sulfate () 2 - 4 mg IV Q2H PRN PRN PRN Reason: SEVERE PAIN (6-10/10) Multivitamins/Minerals (Multivitamin With Minerals) 1 tablet PO DAILY@0800 [facility] Last Admin: 07/24/18 10:24 Dose: 1 tablet Multivitamins/Minerals (Healthy Eyes) 1 capsule PO DAILYCM [facility] Last Admin: 07/24/18 10:25 Dose: 1 capsule Nutritional Formula (Lactose Free) (Ensure Clear) 120 ml PO TIDCM [facility] Last Admin: 07/24/18 12:12 Dose: Not Given Ondansetron HCl (Zofran) 4 mg IV Q8H PRN PRN PRN Reason: NAUSEA Oxycodone HCl (Oxyir) 5 - 10 mg PO Q4H PRN PRN PRN Reason: MOD-SEVERE PAIN (4-10/10) Last Admin: 07/24/18 08:33 Dose: 10 mg Promethazine HCl (Phenergan) 12.5 mg IM Q6H PRN PRN; Protocol PRN Reason: NAUSEA/VOMITING Senna/Docusate Sodium (Senokot-S, Kaycee-Colace) 2 tablet PO BID [facility] Last Admin: 07/24/18 10:25 Dose: Not Given Sodium Chloride () 5 - 15 ml IV UD PRN PRN Reason: SALINE FLUSH Last Admin: 07/24/18 12:17 Dose: 10 ml Medical Necessity - Tobacco Use Smoking Status: Never smoker Assessment/Plan This 82-year-old female with history of hypertension, chronic degenerative joint disease and 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 Castle. 1. 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 Pain control. 2. Hypertension: Controlled. Continue amlodipine and HCTZ. 3. Glaucoma eyedrops. 4. DVT prophylaxis on aspirin 81 mg twice daily. Code Visit Inpatient E&M: 98038 Subs Hosp L2
[2018-07-24 17:11] VITALS: BP 136/59; PULSE 94; RESP 18; TEMP 36.8; O2SAT 95
[2018-07-24 20:32] VITALS: BP 126/57; PULSE 105; RESP 18; TEMP 37.6; O2SAT 98
[2018-07-24] MEDS: Senna/Docusate Sodium 1 Tablet 2 TABLET PO (21:36)
[2018-07-24] MEDS: Latanoprost 0.005% 1 Bottle 1 DRP EACH EYE (21:36)
[2018-07-24] MEDS: Atorvastatin Calcium 20 MG Tablet PO (21:36)
[2018-07-25] MEDS: Acetaminophen 500 MG Tablet 1000 MG PO ×3 (04:54→21:32)
[2018-07-25 05:00] VITALS: BP 143/62; PULSE 106; RESP 18; TEMP 36.9; O2SAT 97
--- NOTE | 2018-07-25 06:20 | NURSING ---
PT DROPPED PILL CUP LAST NIGHT, BUT THOUGHT SHE FOUND AND TOOK ALL HER PILLS. THIS AM AN OXYIR WAS FOUND IN PT'S BED. HERMELINDO JACKSON VERIFIED PILL'S IDENTITY. PILL WAS WASTED IN ACCUDOSE.
[2018-07-25 06:28] LABS: Hematocrit 25.9 % (37-47); Hemoglobin 8.2 g/dl (12.0-15.0); Mean Corp Hgb Conc 31.7 g/gl (32-36); Mean Corpuscular Hgb 28.8 pg (27.0-32.0); Mean Corpuscular Volume 90.9 fL (81-99); Mean Platelet Vol. 10.1 fl (6.2-12.0); Platelet Count 252 K/mm3 (150-450); RBC Distribution Width CV 14.7 % (11.6-14.6); RBC Distribution Width SD 47.5 fl (35.1-43.9); Red Blood Count 2.85 M/mm3 (4.2-5.4); White Blood Count 8.9 K/mm3 (4.4-11.0)
--- NOTE | 2018-07-25 06:36 | PCM.PN.ORT ---
Subjective: The patient was sitting in bed upon examination. Patient denies any chest pain, shortness of breath, dizziness, lightheadedness, nausea or vomiting, or calf pain. Pain is controlled on medications. No adverse overnight events. Patient does report pain in the right knee. Medications are helpful. Plan is for patient to be discharged to the transitional care unit on Saturday. Patient has had mild tachycardia but denies any chest pain, shortness of breath. She has normally been running in the mid to upper 90s for the heart rate.. Objective: Mild tachycardia otherwise vital signs stable and afebrile Patient is able to plantarflex and dorsiflex actively. Sensation is intact to light touch to saphenous, sural, superficial and deep peroneal, and tibial distribution. Dressing is clean dry and intact. Negative Homans bilaterally, negative signs and symptoms of DVT. - Physical Exam General: Alert, Oriented x3, Cooperative, No apparent distress Vital Signs Temp Pulse Resp BP Pulse Ox 98.4 F 106 H 18 143/62 H 97 07/25/18 05:00 07/25/18 05:00 07/25/18 05:00 07/25/18 05:00 07/25/18 05:00 Oxygen Delivery Method Room Air Weight: 68.039 kg Body Mass Index (BMI) 32.4 Intake and Output for Last 24 Hours 07/23/18 07/24/18 07/25/18 23:59 23:59 23:59 Intake Total 2685 / 2685 2211 / 2211 1100 / 1100 Output Total 800 / 800 1900 / 1900 50 / 50 Balance 1885 / 1885 311 / 311 1050 / 1050 Microbiology Past 72 Hours 07/23/18 12:39 Gram Stain - Final Tissue - Knee Wound Culture - Preliminary No growth-Final to follow 07/23/18 12:39 Gram Stain - Final Tissue - Knee Wound Culture - Preliminary No growth-Final to follow 07/23/18 12:39 Gram Stain - Final Tissue - Knee Wound Culture - Preliminary No growth-Final to follow Laboratory Tests Past 24 Hrs 07/25/18 Unknown WBC Pending RBC Pending Hgb Pending Hct Pending MCV Pending MCH Pending MCHC Pending RDW Pending RDW Differential Pending Plt Count Pending Medical Necessity - Tobacco Use Smoking Status: Never smoker Assessment/Plan 1. S/P revision right total knee replacement POD #2 2. Continue Pain Medications: Tylenol and oxycodone 3. DVT Prophylaxis: Aspirin 81 mg twice daily for 4 weeks postoperatively 4. PT/OT: Weightbearing as tolerated 5. H & H: 8.2/25.9, asymptomatic 6. Encouraged Incentive Spirometry 7. Continue postoperative medical management per medicine 8. Disposition: Plan is for discharge to transitional care unit tomorrow. Continue with physical therapy while in the hospital. Continue with above medications.
[2018-07-25 06:37] LABS: Scan Indicated on CBC? Y/N NO
[2018-07-25] MEDS: Senna/Docusate Sodium 1 Tablet 2 TABLET PO (07:20)
[2018-07-25] MEDS: Aspirin 81 MG TAB.CHEW PO ×2 (07:20→17:11)
[2018-07-25] MEDS: Folic Acid 1 MG Tablet PO ×2 (07:20→17:11)
[2018-07-25] MEDS: hydroCHLOROthiazide 12.5mg 12.5 MG PO (07:21)
[2018-07-25] MEDS: Multivitamin (Healthy Eyes) Capsule 1 CAP PO (07:21)
[2018-07-25] MEDS: Calcium Carb/Vitamin D 1 TABLET Tablet PO (07:21)
[2018-07-25] MEDS: Multivitamins,Ther W-Minerals Tablet 1 TABLET PO (07:21)
[2018-07-25] MEDS: Meloxicam 7.5 MG Tablet PO ×2 (07:22→21:32)
[2018-07-25] MEDS: Famotidine 20 MG Tablet PO (07:22)
[2018-07-25] MEDS: amLODIPine 5 MG Tablet PO (07:22)
[2018-07-25] MEDS: Ensure Clear 120 ML Liquid PO ×3 (07:25→17:11)
[2018-07-25] MEDS: oxyCODONE 5 MG Tablet PO (07:25)
[2018-07-25 07:27] VITALS: BP 135/68; PULSE 85; RESP 16; TEMP 36.6; O2SAT 96
--- NOTE | 2018-07-25 09:12 | CASEMGMT ---
Social Work Note SW spoke with Jesika with TCU confirming pt is able to discharge to TCU tomorrow (Saturday07/26/2018). Green sheet on chart. Plan: TCU tomorrow Hollie Sheth MSW, CLUB MANAGER
[2018-07-25 11:06] VITALS: BP 135/62; PULSE 88; RESP 16; TEMP 37; O2SAT 96
--- NOTE | 2018-07-25 11:12 | PCM.PN.HOSP ---
Subjective: Patient is doing better. Denies any chest pain or shortness of breath. She feels her pulse and fast while on walking Vitals/I&O's: Vital Signs Temp Pulse Resp BP Pulse Ox 98.6 F 88 16 135/62 H 96 07/25/18 11:06 07/25/18 11:06 07/25/18 11:06 07/25/18 11:06 07/25/18 11:06 Oxygen Delivery Method Room Air Weight: 150 lb Body Mass Index (BMI) 32.4 Intake and Output for Last 24 Hours 07/23/18 07/24/18 07/25/18 23:59 23:59 23:59 Intake Total 2685 / 2685 2211 / 2211 1700 / 1700 Output Total 800 / 800 1900 / 1900 700 / 700 Balance 1885 / 1885 311 / 311 1000 / 1000 General: Alert, Oriented x3, Cooperative HEENT: Atraumatic, PERRLA, EOMI, Normocephalic Neck: Supple, No JVD, Negative Carotid Bruits Lungs: Clear to auscultation, Normal air movement, No rhonchi, No wheeze, No rales Cardiovascular: Regular rate - No sinus tachycardia., Regular Rhythm, Normal S1, Normal S2, No murmurs Abdomen: Bowel Sounds Present, Soft, Non Tender Extremities: Capillary Refill Less than 3 Seconds, Edema Skin: No rashes, No breakdown Musculoskeletal: Arthritic Changes, Tenderness - Right knee TKR. Very mild mild tenderness, expected. Patient did good on physical therapy Neurological: Cranial nerves II-XII grossly intact Psych/Mental Status: Normal Affect, Appropriate Microbiology Past 72 Hours 07/23/18 12:39 Tissue - Knee Gram Stain - Final 07/23/18 12:39 Tissue - Knee Wound Culture - Preliminary No growth-Final to follow 07/23/18 12:39 Tissue - Knee Anaerobic Culture - Preliminary No growth in 48 hours. 07/23/18 12:39 Tissue - Knee Gram Stain - Final 07/23/18 12:39 Tissue - Knee Wound Culture - Preliminary No growth-Final to follow 07/23/18 12:39 Tissue - Knee Anaerobic Culture - Preliminary No growth in 48 hours. 07/23/18 12:39 Tissue - Knee Gram Stain - Final 07/23/18 12:39 Tissue - Knee Wound Culture - Preliminary No growth-Final to follow 07/23/18 12:39 Tissue - Knee Anaerobic Culture - Preliminary No growth in 48 hours. Laboratory Results 07/25/18 : WBC 8.9, RBC 2.85 L, Hgb 8.2 L, Hct 25.9 L, MCV 90.9, MCH 28.8, MCHC 31.7 L, RDW 14.7 H, RDW Differential 47.5 H, Plt Count 252, MPV 10.1 Current Medications Acetaminophen (Tylenol) 1,000 mg PO Q8 [facility] Last Admin: 07/25/18 04:54 Dose: 1,000 mg Amlodipine Besylate (Norvasc) 5 mg PO DAILY [facility] Last Admin: 07/25/18 07:22 Dose: 5 mg [facility] ([facility], [facility]) [facility] Last Admin: 07/25/18 07:20 Dose: 81 mg Atorvastatin Calcium (Lipitor) 20 mg PO QHS [facility] Last Admin: 07/24/18 21:36 Dose: 20 mg Calcium/Vitamin D (Os-Qamar 500mg + D) [facility] Last Admin: 07/25/18 07:21 Dose: 1 tablet Famotidine (Pepcid) 20 mg PO DAILY [facility] Last Admin: 07/25/18 07:22 Dose: 20 mg Ferrous Sulfate (Ferrous Sulfate) 325 mg PO BID@1200,1700 [facility] Last Admin: 07/24/18 17:14 Dose: 325 mg Folic Acid (Folic Acid) [facility] Last Admin: 07/25/18 07:20 Dose: 1 mg Hydrochlorothiazide () 12.5 mg PO DAILY [facility] Last Admin: 07/25/18 07:21 Dose: 12.5 mg Ketorolac Tromethamine (Toradol) 15 mg IV Q6H PRN PRN PRN Reason: MILD-MOD PAIN (1-5/10) Last Admin: 07/24/18 12:17 Dose: 15 mg Latanoprost (Xalatan Opthalmic) 1 drop EACH EYE QHS [facility] Last Admin: 07/24/18 21:36 Dose: 1 drop Meloxicam (Mobic) 7.5 mg PO BID [facility] Last Admin: 07/25/18 07:22 Dose: 7.5 mg Morphine Sulfate () 2 - 4 mg IV Q2H PRN PRN PRN Reason: SEVERE PAIN (6-10/10) Last Admin: 07/23/18 14:58 Dose: 2 mg Morphine Sulfate () 2 - 4 mg IV Q2H PRN PRN PRN Reason: SEVERE PAIN (6-10/10) Multivitamins/Minerals (Multivitamin With Minerals) 1 tablet PO DAILY@0800 [facility] Last Admin: 07/25/18 07:21 Dose: 1 tablet Multivitamins/Minerals (Healthy Eyes) 1 capsule PO DAILYCM [facility] Last Admin: 07/25/18 07:21 Dose: 1 capsule Nutritional Formula (Lactose Free) (Ensure Clear) 120 ml PO TIDCM [facility] Last Admin: 07/25/18 07:25 Dose: 120 ml Ondansetron HCl (Zofran) 4 mg IV Q8H PRN PRN PRN Reason: NAUSEA Oxycodone HCl (Oxyir) 5 - 10 mg PO Q4H PRN PRN PRN Reason: MOD-SEVERE PAIN (4-10/10) Last Admin: 07/25/18 07:25 Dose: 5 mg Promethazine HCl (Phenergan) 12.5 mg IM Q6H PRN PRN; Protocol PRN Reason: NAUSEA/VOMITING Senna/Docusate Sodium (Senokot-S, Kaycee-Colace) 2 tablet PO BID [facility] Last Admin: 07/25/18 07:20 Dose: 2 tablet Sodium Chloride () 5 - 15 ml IV UD PRN PRN Reason: SALINE FLUSH Last Admin: 07/24/18 12:17 Dose: 10 ml Medical Necessity - Tobacco Use Smoking Status: Never smoker Assessment/Plan This 82-year-old female with history of hypertension, chronic degenerative joint disease and 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 Castle. 1. 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 Pain control. 2. Mild to moderate acute anemia most probably secondary to postoperative blood loss: H&H is stable. H&H dropped to 8.2/25.9 from preoperative 11.3/35.3. Hypertension: Controlled. Continue amlodipine and HCTZ. 3. Glaucoma eyedrops. 4. DVT prophylaxis on aspirin 81 mg twice daily. Microbiology Past 72 Hours 07/23/18 12:39 Tissue - Knee Gram Stain - Final 07/23/18 12:39 Tissue - Knee Wound Culture - Preliminary No growth-Final to follow 07/23/18 12:39 Tissue - Knee Anaerobic Culture - Preliminary No growth in 48 hours. 07/23/18 12:39 Tissue - Knee Gram Stain - Final 07/23/18 12:39 Tissue - Knee Wound Culture - Preliminary No growth-Final to follow 07/23/18 12:39 Tissue - Knee Anaerobic Culture - Preliminary No growth in 48 hours. 07/23/18 12:39 Tissue - Knee Gram Stain - Final 07/23/18 12:39 Tissue - Knee Wound Culture - Preliminary No growth-Final to follow 07/23/18 12:39 Tissue - Knee Anaerobic Culture - Preliminary No growth in 48 hours. Laboratory Results 07/25/18 : WBC 8.9, RBC 2.85 L, Hgb 8.2 L, Hct 25.9 L, MCV 90.9, MCH 28.8, MCHC 31.7 L, RDW 14.7 H, RDW Differential 47.5 H, Plt Count 252, MPV 10.1 Code Visit Inpatient E&M: 39449 Subs Hosp L2
--- NOTE | 2018-07-25 11:17 | PN_ITS ---
Subjective: Patient is doing better. Denies any chest pain or shortness of breath. She feels her pulse and fast while on walking Vitals/I&O's: Vital Signs Temp Pulse Resp BP Pulse Ox 98.6 F 88 16 135/62 H 96 07/25/18 11:06 07/25/18 11:06 07/25/18 11:06 07/25/18 11:06 07/25/18 11:06 Oxygen Delivery Method Room Air Weight: 150 lb Body Mass Index (BMI) 32.4 Intake and Output for Last 24 Hours 07/23/18 07/24/18 07/25/18 23:59 23:59 23:59 Intake Total 2685 / 2685 2211 / 2211 1700 / 1700 Output Total 800 / 800 1900 / 1900 700 / 700 Balance 1885 / 1885 311 / 311 1000 / 1000 General: Alert, Oriented x3, Cooperative HEENT: Atraumatic, PERRLA, EOMI, Normocephalic Neck: Supple, No JVD, Negative Carotid Bruits Lungs: Clear to auscultation, Normal air movement, No rhonchi, No wheeze, No rales Cardiovascular: Regular rate - No sinus tachycardia., Regular Rhythm, Normal S1, Normal S2, No murmurs Abdomen: Bowel Sounds Present, Soft, Non Tender Extremities: Capillary Refill Less than 3 Seconds, Edema Skin: No rashes, No breakdown Musculoskeletal: Arthritic Changes, Tenderness - Right knee TKR. Very mild mild tenderness, expected. Patient did good on physical therapy Neurological: Cranial nerves II-XII grossly intact Psych/Mental Status: Normal Affect, Appropriate Microbiology Past 72 Hours 07/23/18 12:39 Tissue - Knee Gram Stain - Final 07/23/18 12:39 Tissue - Knee Wound Culture - Preliminary No growth-Final to follow 07/23/18 12:39 Tissue - Knee Anaerobic Culture - Preliminary No growth in 48 hours. 07/23/18 12:39 Tissue - Knee Gram Stain - Final 07/23/18 12:39 Tissue - Knee Wound Culture - Preliminary No growth-Final to follow 07/23/18 12:39 Tissue - Knee Anaerobic Culture - Preliminary No growth in 48 hours. 07/23/18 12:39 Tissue - Knee Gram Stain - Final 07/23/18 12:39 Tissue - Knee Wound Culture - Preliminary No growth-Final to follow 07/23/18 12:39 Tissue - Knee Anaerobic Culture - Preliminary No growth in 48 hours. Laboratory Results 07/25/18 : WBC 8.9, RBC 2.85 L, Hgb 8.2 L, Hct 25.9 L, MCV 90.9, MCH 28.8, MCHC 31.7 L, RDW 14.7 H, RDW Differential 47.5 H, Plt Count 252, MPV 10.1 Current Medications Acetaminophen (Tylenol) 1,000 mg PO Q8 [facility] Last Admin: 07/25/18 04:54 Dose: 1,000 mg Amlodipine Besylate (Norvasc) 5 mg PO DAILY [facility] Last Admin: 07/25/18 07:22 Dose: 5 [facility] Admin: 07/25/18 07:20 Dose: 81 mg Atorvastatin Calcium (Lipitor) 20 mg PO QHS [facility] Last Admin: 07/24/18 21:36 Dose: 20 mg Calcium/Vitamin D (Os-Qamar 500mg + D) [facility] Last Admin: 07/25/18 07:21 Dose: 1 tablet Famotidine (Pepcid) 20 mg PO DAILY [facility] Last Admin: 07/25/18 07:22 Dose: 20 mg Ferrous Sulfate (Ferrous Sulfate) 325 mg PO BID@1200,1700 [facility] Last Admin: 07/24/18 17:14 Dose: 325 mg Folic Acid (F[facility] Acid) [facility] Last Admin: 07/25/18 07:20 Dose: 1 mg Hydrochlorothiazide () 12.5 mg PO DAILY [facility] Last Admin: 07/25/18 07:21 Dose: 12.5 mg Ketorolac Tromethamine (Toradol) 15 mg IV Q6H PRN PRN PRN Reason: MILD-MOD PAIN (1-5/10) Last Admin: 07/24/18 12:17 Dose: 15 mg Latanoprost (Xalatan Opthalmic) 1 drop EACH EYE QHS [facility] Last Admin: 07/24/18 21:36 Dose: 1 drop Meloxicam (Mobic) 7.5 mg PO BID [facility] Last Admin: 07/25/18 07:22 Dose: 7.5 mg Morphine Sulfate () 2 - 4 mg IV Q2H PRN PRN PRN Reason: SEVERE PAIN (6-10/10) Last Admin: 07/23/18 14:58 Dose: 2 mg Morphine Sulfate () 2 - 4 mg IV Q2H PRN PRN PRN Reason: SEVERE PAIN (6-10/10) Multivitamins/Minerals (Multivitamin With Minerals) 1 tablet PO DAILY@0800 [facility] Last Admin: 07/25/18 07:21 Dose: 1 tablet Multivitamins/Minerals (Healthy Eyes) 1 capsule PO DAILYCM [facility] Last Admin: 07/25/18 07:21 Dose: 1 capsule Nutritional Formula (Lactose Free) (Ensure Clear) 120 ml PO TIDCM [facility] Last Admin: 07/25/18 07:25 Dose: 120 ml Ondansetron HCl (Zofran) 4 mg IV Q8H PRN PRN PRN Reason: NAUSEA Oxycodone HCl (Oxyir) 5 - 10 mg PO Q4H PRN PRN PRN Reason: MOD-SEVERE PAIN (4-10/10) Last Admin: 07/25/18 07:25 Dose: 5 mg Promethazine HCl (Phenergan) 12.5 mg IM Q6H PRN PRN; Protocol PRN Reason: NAUSEA/VOMITING Senna/Docusate Sodium (Senokot-S, Kaycee-Colace) 2 tablet PO BID [facility] Last Admin: 07/25/18 07:20 Dose: 2 tablet Sodium Chloride () 5 - 15 ml IV UD PRN PRN Reason: SALINE FLUSH Last Admin: 07/24/18 12:17 Dose: 10 ml Medical Necessity - Tobacco Use Smoking Status: Never smoker Assessment/Plan This 82-year-old female with history of hypertension, chronic degenerative joint disease and 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 Castle. 1. 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 Pain control. 2. Mild to moderate acute anemia most probably secondary to postoperative blood loss: H&H is stable. H&H dropped to 8.2/25.9 from preoperative 11.3/35.3. Hypertension: Controlled. Continue amlodipine and HCTZ. 3. Glaucoma eyedrops. 4. DVT prophylaxis on aspirin 81 mg twice daily. Microbiology Past 72 Hours 07/23/18 12:39 Tissue - Knee Gram Stain - Final 07/23/18 12:39 Tissue - Knee Wound Culture - Preliminary No growth-Final to follow 07/23/18 12:39 Tissue - Knee Anaerobic Culture - Preliminary No growth in 48 hours. 07/23/18 12:39 Tissue - Knee Gram Stain - Final 07/23/18 12:39 Tissue - Knee Wound Culture - Preliminary No growth-Final to follow 07/23/18 12:39 Tissue - Knee Anaerobic Culture - Preliminary No growth in 48 hours. 07/23/18 12:39 Tissue - Knee Gram Stain - Final 07/23/18 12:39 Tissue - Knee Wound Culture - Preliminary No growth-Final to follow 07/23/18 12:39 Tissue - Knee Anaerobic Culture - Preliminary No growth in 48 hours. Laboratory Results 07/25/18 : WBC 8.9, RBC 2.85 L, Hgb 8.2 L, Hct 25.9 L, MCV 90.9, MCH 28.8, MCHC 31.7 L, RDW 14.7 H, RDW Differential 47.5 H, Plt Count 252, MPV 10.1 Code Visit Inpatient E&M: 11123 Subs Hosp L2
[2018-07-25] MEDS: Ferrous Sulfate 325 MG Tablet PO ×2 (11:32→17:11)
[2018-07-25 14:02] VITALS: BP 132/48; PULSE 95; RESP 16; TEMP 36.8; O2SAT 96
[2018-07-25 20:11] VITALS: BP 113/50; PULSE 97; RESP 16; TEMP 36.8; O2SAT 97
[2018-07-25] MEDS: Atorvastatin Calcium 20 MG Tablet PO (21:32)
[2018-07-25] MEDS: Latanoprost 0.005% 1 Bottle 1 DRP EACH EYE (21:33)
[2018-07-26 02:04] VITALS: BP 145/62; PULSE 99; RESP 16; TEMP 36.8; O2SAT 97
[2018-07-26] MEDS: Acetaminophen 500 MG Tablet 1000 MG PO ×2 (05:53→14:18)
[2018-07-26 06:56] LABS: Hemoglobin 7.8 g/dl (12.0-15.0); Mean Corp Hgb Conc 31.2 g/gl (32-36); Mean Corpuscular Hgb 27.7 pg (27.0-32.0); Mean Corpuscular Volume 88.7 fL (81-99); Mean Platelet Vol. 10.2 fl (6.2-12.0); Platelet Count 251 K/mm3 (150-450); RBC Distribution Width CV 14.6 % (11.6-14.6); RBC Distribution Width SD 45.8 fl (35.1-43.9); Red Blood Count 2.82 M/mm3 (4.2-5.4); White Blood Count 8.2 K/mm3 (4.4-11.0)
[2018-07-26 06:58] LABS: Scan Indicated on CBC? Y/N NO
--- NOTE | 2018-07-26 07:49 | NURSING ---
This nurse and Stefan [employer] aware of order for stool for occult.
--- NOTE | 2018-07-26 09:13 | PCM.PN.ORT ---
Subjective: The patient was sitting in bedside chair eating breakfast upon examination. Patient denies any chest pain, shortness of breath, dizziness, lightheadedness, nausea or vomiting, or calf pain. Pain is controlled on medications. No adverse overnight events. Overall patient is doing very well. Patient states she has had a bowel movement and there was no blood. Patient has been tolerating physical therapy very well. Her knee pain is been controlled. Plan is for her to go to the transitional care unit today. Patient did have a drop in her hemoglobin and is currently 7.8 but patient is asymptomatic and her vitals are stable. Objective: Vital signs stable and afebrile. Patient is able to plantarflex and dorsiflex actively. Sensation is intact to light touch to saphenous, sural, superficial and deep peroneal, and tibial distribution. Dressing is clean dry and intact. Postoperative swelling to the knee Negative Homans bilaterally, negative signs and symptoms of DVT. - Physical Exam General: Alert, Oriented x3, Cooperative, No apparent distress Vital Signs Temp Pulse Resp BP Pulse Ox 98.3 F 99 16 145/62 H 97 07/26/18 02:04 07/26/18 02:04 07/26/18 02:04 07/26/18 02:04 07/26/18 02:04 Oxygen Delivery Method Room Air Weight: 68.039 kg Body Mass Index (BMI) 32.4 Intake and Output for Last 24 Hours 07/24/18 07/25/18 07/26/18 23:59 23:59 23:59 Intake Total 2211 / 2211 2250 / 2250 600 / 600 Output Total 1900 / 1900 700 / 700 Balance 311 / 311 1550 / 1550 600 / 600 Microbiology Past 72 Hours 07/23/18 12:39 Gram Stain - Final Tissue - Knee Wound Culture - Final No growth aerobically. Anaerobic Culture - Preliminary No growth in 48 hours. 07/23/18 12:39 Gram Stain - Final Tissue - Knee Wound Culture - Final No growth aerobically. Anaerobic Culture - Preliminary No growth in 48 hours. 07/23/18 12:39 Gram Stain - Final Tissue - Knee Wound Culture - Final No growth aerobically. Anaerobic Culture - Preliminary No growth in 48 hours. Laboratory Tests Past 24 Hrs 07/26/18 05:56 WBC 8.2 RBC 2.82 L Hgb 7.8 L Hct 25.0 L MCV 88.7 MCH 27.7 MCHC 31.2 L RDW 14.6 RDW Differential 45.8 H Plt Count 251 MPV 10.2 Medical Necessity - Tobacco Use Smoking Status: Never smoker Assessment/Plan 1. S/P revision right total knee replacement POD #3 2. Continue Pain Medications: Tylenol and oxycodone 3. DVT Prophylaxis: Aspirin 81 mg twice daily for 4 weeks postoperatively 4. PT/OT: Weightbearing as tolerated 5. H & H: 7.8/25.0, asymptomatic. Patient's vital signs are stable 6. Encouraged Incentive Spirometry 7. Continue postoperative medical management per medicine: Discussed case with hospitalist. They would like patient to stop the meloxicam. They were considering stopping the aspirin but patient is currently asymptomatic and we would continue this for blood clot prevention at this time unless there is a reason to stop the aspirin. They are ordering occult stool test. Plan will be for discharge to the TCU today. Patient is going to be placed on oral ferrous sulfate 325 mg twice daily. 8. Disposition: Orthopedically stable, plan will be for discharge to transitional care unit today. Prescriptions will be attached to chart. Patient will follow-up per postop instructions.
--- NOTE | 2018-07-26 09:23 | DCINST_ITS ---
Discharge Diet: No Restrictions Discharge Activity: May Not Drive May shower in (days): 1 - Okay to shower as long his dressing is intact the skin Ice area for (Minutes): 20 - every hour while awake. Weight Bearing Status: Weight bearing as tolerated Elevate: Operative Extremity Additional Activity Instructions:: Wear elastic stockings for 2 weeks after your surgery. Call your doctor if your incision/area has: Continuous Slow Oozing, Sudden Increased Bleeding, Increased Pain/ Swelling, Increased Redness, Foul Smelling Discharge Call your doctor if you observe: Fever of 101 or Higher, Coldness, Increased Pain, Numbness or Tingling, Change in Color, Calf discomfort, Uncontrolled pain Remove Dressing in (days):: 2 - Remove dressing on July 28, 2018 Additional Instructions: Anemia: Continue with folic acid and ferrous sulfate for 2 weeks postoperatively DVT prophylaxis: Continue with aspirin 81 mg twice daily with food: Take famotidine while on the aspirin. Nonsteroidal anti-inflammatories: Discontinue meloxicam and do not take any [id number] nonsteroidal anti-inflammatories while at home Dressing: Dressing can be removed on July 28, 2018, do not place any tape on skin. Use ABD between KAMAR hose and skin. Allergies/Adverse Reactions: Allergies Sulfa (Sulfonamide Antibiotics) Allergy (Verified 07/11/18 14:29) Rash sulfamethoxazole [From Bactrim] Allergy (Verified 07/11/18 14:29) Rash trimethoprim [From Bactrim] Allergy (Verified 07/11/18 14:29) Rash Medications to take at Discharge Amlodipine [Norvasc] 5 mg PO DAILY 07/11/18 Amoxicillin 500 mg PO PRN PRN 07/11/18 Calcium Carbonate/Vitamin D3 [Calcium 600 + Vit D Tablet] 1 each PO DAILY 07/11/18 Ergocalciferol [Vitamin D] 1,000 unit PO DAILY 07/11/18 Latanoprost 0.005% [Xalatan Opthalmic] 1 drop EACH EYE QHS 07/11/18 Multivit-Min/FA/Lycopen/Lutein [Centrum Silver Tablet] 1 each PO DAILY 07/11/18 Rosuvastatin Calcium [Crestor] 10 mg PO DAILY 07/11/18 Vit C/Vit E AC/Lut/Copper/Zinc [Preservision Lutein Softgel] 1 each PO DAILY 07/11/18 hydroCHLOROthiazide [Hydrochlorothiazide] 12.5 mg PO DAILY 07/11/18 Acetaminophen [Tylenol] 1,000 mg PO Q8 14 Days tablet 07/26/18 Aspirin [Aspirin, Baby] 81 mg PO BIDCM 28 Days tab.chew 07/26/18 Cyanocobalamin [Vitamin B12] 500 mcg PO DAILY@0800 #30 tablet 07/26/18 Famotidine [Pepcid] 20 mg PO DAILY 28 Days tablet 07/26/18 Ferrous Sulfate 325 mg PO BID #60 tablet 07/26/18 Ferrous Sulfate 325 mg PO BID@1200,1700 14 Days tablet 07/26/18 Folic Acid 1 mg PO BIDCM 14 Days tablet 07/26/18 Folic Acid 1 mg PO DAILY #30 tablet 07/26/18 Oxycodone [Oxyir] 5 - 10 mg PO Q4H PRN PRN 4 Days #30 tab 07/26/18 The following prescriptions were given: Oxycodone [Oxyir] 5 - 10 mg PO Q4H PRN PRN 4 Days #30 tab PRN Reason: Mod-Severe Pain () Cyanocobalamin [Vitamin B12] 500 mcg PO DAILY@0800 #30 tablet Folic Acid 1 mg PO DAILY #30 tablet Ferrous Sulfate 325 mg PO BID #60 tablet Primary Care Physician: Anselmo Castle MD [Primary Care Provider] - Test Results: Test results from this visit will be discussed in further detail at your follow- up appointment, if applicable. Please Follow Up With: Toni Phipps PA-C When: 08/06/18 @ 10:30 am
--- NOTE | 2018-07-26 09:24 | PCM.DC.SUM ---
Discharge Date and Diagnosis Date of Admission: 07/23/18 Date of Discharge: 07/26/18 - Primary Discharge Diagnosis Painful right total knee arthroplasty Hospital Course and Treatment Summary of Care Provided: Patient is a 82-year-old female with history of right knee osteoarthritis and medial compartment partial knee replacement. X-rays reveal loss of joint space with osteophyte formation and subchondral sclerosis. Patient also had findings consistent with subchondral fracture of the lateral distal femur. Patient continued to have painful right unicompartmental knee replacement. After failing conservative measures, the patient opted to proceed with a revision right total knee arthroplasty. The patient underwent the above-stated procedure on July 23, 2018. Patient did receive perioperative antibiotics. Intraoperatively was uneventful. For details please see dictated operative note. The patient was placed in thigh-high teds, bilateral SCDs, remained stable in recovery. Patient was admitted to the 3rd floor at [facility]. The patient's pain was managed with the use of IV and p.o. pain medications. Patient participated in physical therapy. Patient was discharged on postoperative day #3 to transitional care unit at [facility]. Patient was given medications stated below. Patient will follow up with [facility] per postop instructions for reassessment. - Physical Exam Vital Signs Temp Pulse Resp BP Pulse Ox 98.3 F 99 16 145/62 H 97 07/26/18 02:04 07/26/18 02:04 07/26/18 02:04 07/26/18 02:04 07/26/18 02:04 Oxygen Delivery Method Room Air Weight: 68.039 kg Body Mass Index (BMI) 32.4 Intake and Output for Last 24 Hours 07/24/18 07/25/18 07/26/18 23:59 23:59 23:59 Intake Total 2211 / 2211 2250 / 2250 600 / 600 Output Total 1900 / 1900 700 / 700 Balance 311 / 311 1550 / 1550 600 / 600 Microbiology Past 72 Hours 07/23/18 12:39 Gram Stain - Final Tissue - Knee Wound Culture - Final No growth aerobically. Anaerobic Culture - Preliminary No growth in 48 hours. 07/23/18 12:39 Gram Stain - Final Tissue - Knee Wound Culture - Final No growth aerobically. Anaerobic Culture - Preliminary No growth in 48 hours. 07/23/18 12:39 Gram Stain - Final Tissue - Knee Wound Culture - Final No growth aerobically. Anaerobic Culture - Preliminary No growth in 48 hours. Laboratory Tests Past 24 Hrs 07/26/18 05:56 WBC 8.2 RBC 2.82 L Hgb 7.8 L Hct 25.0 L MCV 88.7 MCH 27.7 MCHC 31.2 L RDW 14.6 RDW Differential 45.8 H Plt Count 251 MPV 10.2 Discharge Diet: No Restrictions Discharge Activity: May Not Drive May shower in (days): 1 - Okay to shower as long his dressing is intact the skin Ice area for (Minutes): 20 - every hour while awake. Weight Bearing Status: Weight bearing as tolerated Keep extremity elevated above heart level: Operative Extremity Additional Activity Instructions:: Wear elastic stockings for 2 weeks after your surgery. Call your doctor if your incision/area has: Continuous Slow Oozing, Sudden Increased Bleeding, Increased Pain/ Swelling, Increased Redness, Foul Smelling Discharge Call your doctor if you observe: Fever of 101 or Higher, Coldness, Increased Pain, Numbness or Tingling, Change in Color, Calf discomfort, Uncontrolled pain Remove Dressing in (days):: 2 - Remove dressing on July 28, 2018 Home Medications: Medications to take at Discharge Amlodipine [Norvasc] 5 mg PO DAILY 07/11/18 Amoxicillin 500 mg PO PRN PRN 07/11/18 Calcium Carbonate/Vitamin D3 [Calcium 600 + Vit D Tablet] 1 each PO DAILY 07/11/18 Ergocalciferol [Vitamin D] 1,000 unit PO DAILY 07/11/18 Latanoprost 0.005% [Xalatan Opthalmic] 1 drop EACH EYE QHS 07/11/18 Multivit-Min/FA/Lycopen/Lutein [Centrum Silver Tablet] 1 each PO DAILY 07/11/18 Rosuvastatin Calcium [Crestor] 10 mg PO DAILY 07/11/18 Vit C/Vit E AC/Lut/Copper/Zinc [Preservision Lutein Softgel] 1 each PO DAILY 07/11/18 hydroCHLOROthiazide [Hydrochlorothiazide] 12.5 mg PO DAILY 07/11/18 Acetaminophen [Tylenol] 1,000 mg PO Q8 14 Days tablet 07/26/18 Aspirin [Aspirin, Baby] 81 mg PO BIDCM 28 Days tab.chew 07/26/18 Cyanocobalamin [Vitamin B12] 500 mcg PO DAILY@0800 #30 tablet 07/26/18 Ferrous Sulfate 325 mg PO BID #60 tablet 07/26/18 Ferrous Sulfate 325 mg PO BID@1200,1700 14 Days tablet 07/26/18 Folic Acid 1 mg PO BIDCM 14 Days tablet 07/26/18 Folic Acid 1 mg PO DAILY #30 tablet 07/26/18 Oxycodone [Oxyir] 5 - 10 mg PO Q4H PRN PRN 4 Days #30 tab 07/26/18 Pantoprazole Sodium [Protonix] 40 mg PO DAILY #30 tablet 07/26/18 Following Prescrptions Were Given to Patient: Oxycodone [Oxyir] 5 - 10 mg PO Q4H PRN PRN 4 Days #30 tab PRN Reason: Mod-Severe Pain () Cyanocobalamin [Vitamin B12] 500 mcg PO DAILY@0800 #30 tablet Folic Acid 1 mg PO DAILY #30 tablet Pantoprazole Sodium [Protonix] 40 mg PO DAILY #30 tablet Ferrous Sulfate 325 mg PO BID #60 tablet Primary Care Physician: Anselmo Castle MD [Primary Care Provider] - Please Follow Up With: Toni Phipps PA-C When: 08/06/18 @ 10:30 am Additional Instructions: Anemia: Continue with folic acid and ferrous sulfate for 2 weeks postoperatively DVT prophylaxis: Continue with aspirin 81 mg twice daily with food: Take famotidine while on the aspirin. Nonsteroidal anti-inflammatories: Discontinue meloxicam and do not take any [id number] nonsteroidal anti-inflammatories while at home Dressing: Dressing can be removed on July 28, 2018, do not place any tape on skin. Use ABD between KAMAR hose and skin. Medical Necessity - Tobacco Use Smoking Status: Never smoker Meaningful Use Info Meaningful Use Diagnoses (Choose all that apply): None applicable
--- NOTE | 2018-07-26 09:41 | PCM.PN.HOSP ---
Subjective: Patient had drop in hemoglobin but no dizziness or lightheadedness on physical therapy. Vital signs are stable. Vitals/I&O's: Vital Signs Temp Pulse Resp BP Pulse Ox 98.3 F 99 16 145/62 H 97 07/26/18 02:04 07/26/18 02:04 07/26/18 02:04 07/26/18 02:04 07/26/18 02:04 Oxygen Delivery Method Room Air Weight: 150 lb Body Mass Index (BMI) 32.4 Intake and Output for Last 24 Hours 07/24/18 07/25/18 07/26/18 23:59 23:59 23:59 Intake Total 2211 / 2211 2250 / 2250 600 / 600 Output Total 1900 / 1900 700 / 700 Balance 311 / 311 1550 / 1550 600 / 600 General: Alert, Oriented x3, Cooperative HEENT: Atraumatic, PERRLA, EOMI, Normocephalic Neck: Supple, No JVD, Negative Carotid Bruits Lungs: Clear to auscultation, Normal air movement Cardiovascular: Regular rate, Regular Rhythm, Normal S1, No murmurs Abdomen: Bowel Sounds Present, Soft, Non Tender, Non-Distended Extremities: No edema, Capillary Refill Less than 3 Seconds Skin: No rashes, No breakdown Musculoskeletal: No Tenderness to Palpation of Joints or Extremities, Arthritic Changes, - - Right knee TKR. Surgical dressing is dry. Neurological: Cranial nerves II-XII grossly intact Psych/Mental Status: Normal Affect, Appropriate Microbiology Past 72 Hours 07/23/18 12:39 Tissue - Knee Gram Stain - Final 07/23/18 12:39 Tissue - Knee Wound Culture - Final No growth aerobically. 07/23/18 12:39 Tissue - Knee Anaerobic Culture - Preliminary No growth in 48 hours. 07/23/18 12:39 Tissue - Knee Gram Stain - Final 07/23/18 12:39 Tissue - Knee Wound Culture - Final No growth aerobically. 07/23/18 12:39 Tissue - Knee Anaerobic Culture - Preliminary No growth in 48 hours. 07/23/18 12:39 Tissue - Knee Gram Stain - Final 07/23/18 12:39 Tissue - Knee Wound Culture - Final No growth aerobically. 07/23/18 12:39 Tissue - Knee Anaerobic Culture - Preliminary No growth in 48 hours. Laboratory Results 07/26/18 05:56: WBC 8.2, RBC 2.82 L, Hgb 7.8 L, Hct 25.0 L, MCV 88.7, MCH 27.7, MCHC 31.2 L, RDW 14.6, RDW Differential 45.8 H, Plt Count 251, MPV 10.2 07/26/18 05:56: Vitamin B12 Pending Current Medications Acetaminophen (Tylenol) 1,000 mg PO Q8 [facility] Last Admin: 07/26/18 05:53 Dose: 1,000 mg Amlodipine Besylate (Norvasc) 5 mg PO DAILY [facility] Last Admin: 07/25/18 07:22 Dose: 5 mg [facility]ir[facility] ([facility], [facility]) [facility] Admin: 07/25/18 17:11 Dose: 81 mg Atorvastatin Calcium (Lipitor) 20 mg PO QHS [facility] Last Admin: 07/25/18 21:32 Dose: 20 mg Calcium/Vitamin D (Os-Qamar 500mg + D) [facility] Last Admin: 07/25/18 07:21 Dose: 1 tablet Famotidine (Pepcid) 20 mg PO DAILY [facility] Last Admin: 07/25/18 07:22 Dose: 20 mg Ferrous Sulfate (Ferrous Sulfate) 325 mg PO BID@1200,1700 [facility] Last Admin: 07/25/18 17:11 Dose: 325 mg Folic Acid (Folic Acid) [facility] Last Admin: 07/25/18 17:11 Dose: 1 mg Hydrochlorothiazide () 12.5 mg PO DAILY [facility] Last Admin: 07/25/18 07:21 Dose: 12.5 mg Ketorolac Tromethamine (Toradol) 15 mg IV Q6H PRN PRN PRN Reason: MILD-MOD PAIN (1-5/10) Last Admin: 07/24/18 12:17 Dose: 15 mg Latanoprost (Xalatan Opthalmic) 1 drop EACH EYE QHS [facility] Last Admin: 07/25/18 21:33 Dose: 1 drop Morphine Sulfate () 2 - 4 mg IV Q2H PRN PRN PRN Reason: SEVERE PAIN (6-10/10) Last Admin: 07/23/18 14:58 Dose: 2 mg Morphine Sulfate () 2 - 4 mg IV Q2H PRN PRN PRN Reason: SEVERE PAIN (6-10/10) Multivitamins/Minerals (Multivitamin With Minerals) 1 tablet PO DAILY@0800 [facility] Last Admin: 07/25/18 07:21 Dose: 1 tablet Multivitamins/Minerals (Healthy Eyes) 1 capsule PO DAILYCM [facility] Last Admin: 07/25/18 07:21 Dose: 1 capsule Nutritional Formula (Lactose Free) (Ensure Clear) 120 ml PO TIDCM [facility] Last Admin: 07/25/18 17:11 Dose: 120 ml Ondansetron HCl (Zofran) 4 mg IV Q8H PRN PRN PRN Reason: NAUSEA Oxycodone HCl (Oxyir) 5 - 10 mg PO Q4H PRN PRN PRN Reason: MOD-SEVERE PAIN (-02/05) Last Admin: 07/25/18 07:25 Dose: 5 mg Pantoprazole Sodium (Protonix) 40 mg PO DAILY [facility] Promethazine HCl (Phenergan) 12.5 mg IM Q6H PRN PRN; Protocol PRN Reason: NAUSEA/VOMITING Senna/Docusate Sodium (Senokot-S, Kaycee-Colace) 2 tablet PO BID [facility] Last Admin: 07/25/18 21:33 Dose: Not Given Sodium Chloride () 5 - 15 ml IV UD PRN PRN Reason: SALINE FLUSH Last Admin: 07/24/18 12:17 Dose: 10 ml Medical Necessity - Tobacco Use Smoking Status: Never smoker Assessment/Plan This 82-year-old female with history of hypertension, chronic degenerative joint disease and 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 Castle. 1. 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 Pain control. 2. Mild to moderate acute anemia most probably secondary to postoperative blood loss: H&H is stable. H&H further drop to 7.8/25. H&H preoperative 11.3/35.3. Gradual decrease in hemoglobin, most probably from aspirin 81 mg twice daily and Mobic. Advised to stop both. Possible mild gastritis. Started on Protonix 40 mg daily. Discontinue Zantac. Scripts were given for ferrous sulfate, folic acid and B12. Vitamin B12 ordered but pending can be followed in TCU. Hypertension: Controlled. Continue amlodipine and HCTZ. 3. Glaucoma eyedrops. 4. DVT prophylaxis on aspirin 81 mg twice daily. Discharge meds reconciliation done. Discussed with orthopedic PA, Mr. Muñoz. Patient's H&H needs further to be monitored in TCU. Laboratory Results 07/26/18 05:56: WBC 8.2, RBC 2.82 L, Hgb 7.8 L, Hct 25.0 L, MCV 88.7, MCH 27.7, MCHC 31.2 L, RDW 14.6, RDW Differential 45.8 H, Plt Count 251, MPV 10.2 07/26/18 05:56: Vitamin B12 Pending Microbiology Past 72 Hours 07/23/18 12:39 Tissue - Knee Gram Stain - Final 07/23/18 12:39 Tissue - Knee Wound Culture - Preliminary No growth-Final to follow 07/23/18 12:39 Tissue - Knee Anaerobic Culture - Preliminary No growth in 48 hours. 07/23/18 12:39 Tissue - Knee Gram Stain - Final 07/23/18 12:39 Tissue - Knee Wound Culture - Preliminary No growth-Final to follow 07/23/18 12:39 Tissue - Knee Anaerobic Culture - Preliminary No growth in 48 hours. 07/23/18 12:39 Tissue - Knee Gram Stain - Final 07/23/18 12:39 Tissue - Knee Wound Culture - Preliminary No growth-Final to follow 07/23/18 12:39 Tissue - Knee Anaerobic Culture - Preliminary No growth in 48 hours. Laboratory Results 07/25/18 : WBC 8.9, RBC 2.85 L, Hgb 8.2 L, Hct 25.9 L, MCV 90.9, MCH 28.8, MCHC 31.7 L, RDW 14.7 H, RDW Differential 47.5 H, Plt Count 252, MPV 10.1 Code Visit Inpatient E&M: 62896 Subs Hosp L2
[2018-07-26] MEDS: 0.9% NaCl Peripheral Flush Adult/Peds IV (10:05)
[2018-07-26] MEDS: oxyCODONE 5 MG Tablet PO (10:05)
[2018-07-26 10:11] VITALS: BP 141/42; PULSE 98; RESP 18; TEMP 37; O2SAT 98
[2018-07-26] MEDS: Ensure Clear 120 ML Liquid PO ×2 (10:14→12:23)
[2018-07-26] MEDS: Senna/Docusate Sodium 1 Tablet 2 TABLET PO (10:14)
[2018-07-26] MEDS: Aspirin 81 MG TAB.CHEW PO (10:14)
[2018-07-26] MEDS: amLODIPine 5 MG Tablet PO (10:14)
[2018-07-26] MEDS: Calcium Carb/Vitamin D 1 TABLET Tablet PO (10:14)
[2018-07-26] MEDS: Multivitamin (Healthy Eyes) Capsule 1 CAP PO (10:14)
[2018-07-26] MEDS: Famotidine 20 MG Tablet PO (10:14)
[2018-07-26] MEDS: hydroCHLOROthiazide 12.5mg 12.5 MG PO (10:15)
[2018-07-26] MEDS: Folic Acid 1 MG Tablet PO (10:15)
[2018-07-26] MEDS: Multivitamins,Ther W-Minerals Tablet 1 TABLET PO (10:15)
[2018-07-26] MEDS: Pantoprazole Sodium 40 MG Tablet PO (10:33)
[2018-07-26] MEDS: Ferrous Sulfate 325 MG Tablet PO (12:23)
--- NOTE | 2018-07-26 13:52 | NURSING ---
Report given to Mariano CASAREZ in TCU. He is aware that pt has order to collect stool sample for occult blood but none collected while here.
[2018-07-26 14:19] VITALS: BP 150/70; PULSE 107; RESP 18; TEMP 36.7; O2SAT 96
[2018-07-28 11:29] LABS: Vitamin B12 477 pg/mL (211-911)
== END 2018-07-26 14:30 | disposition skilled nursing facility (03) | DRG 467 ==
PROVIDERS: Internal Medicine; Admitting Provider Specialist; Family Provider Family Medicine; PCP Family Medicine; Referring Provider Specialist; Visit Provider Specialist
PROC: 0SPC0JZ Removal of Synthetic Substitute from Right Knee Joint, Open Approach (ICD-10-PCS; CPT 27447; principal; 2018-07-23 09:00)
DX: M97.11XA Periprosthetic fracture around internal prosthetic right knee joint, initial encounter (principal); D62 Acute posthemorrhagic anemia; M84.451A Pathological fracture, right femur, initial encounter for fracture; T84.84XA Pain due to internal orthopedic prosthetic devices, implants and grafts, initial encounter; T84.092A Other mechanical complication of internal right knee prosthesis, initial encounter; Z96.651 Presence of right artificial knee joint; I10 Essential (primary) hypertension; E78.00 Pure hypercholesterolemia, unspecified; H40.9 Unspecified glaucoma; M17.0 Bilateral primary osteoarthritis of knee
CPT/HCPCS: 36415; 73560; 80048; 82607; 85025; 85027; 87015; 87070; 87075; 87081; 87102; 87116; 87205; 87206; 93005; 97110; 97162; 97166; 97530; 97535; 99251; C1776; J1756; J7120; A4216; G0463

== ENCOUNTER 2018-07-26 14:30 | Inpatient (IN) | payer MEDICARE, OTHER, SELFPAY ==
[2018-07-23 14:15] VITALS: BMI 32.4
--- NOTE | 2018-07-26 15:44 | PCM.HP.STD ---
Problem List (1) Right knee pain Status: Acute (2) Fracture of right tibial plateau Status: Acute (3) Hyperlipidemia Status: Chronic (4) Vitamin D deficiency Status: Chronic (5) Hypertension Status: Chronic (6) Glaucoma Status: Chronic (7) Osteoarthritis Status: Chronic (8) Postoperative anemia Status: Acute History of Present Illness Date of Admission: 07/26/18 Chief Complaint: Here for rehabilitation, strengthening, prior to discharge home alone. The patient is a 82 year old Female with below past medical history with followin01/18/2009 Right partial knee replacement with Dr. Andi Owusu. 07/11/2018 EKG Normal sinus rhythm, no sign of ischemia. Right knee pain since January,. Right knee aspiration NEGATIVE for infection. Physical Therapy done, left knee started to hurt. 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 07/23/2018 Dr. Castle performed revision right partial knee replacement, entire femoral, tibial components. 07/25/2018 Tylenol, Oxycodone for pain. Aspirin 81MG twice daily x 4 weeks for DVT prophylaxis. PT/OT. Encourage incentive spirometry. Postoperative anemia not requiring transfusion. 07/26/2018 Admit to TCU with debility, here for rehabilitation, strengthening, prior to discharge home alone. Stool for occult blood to evaluate anemia. Past Medical History Past Medical History (Chronic Problems): Chronic Problems Hyperlipidemia (Chronic) Vitamin D deficiency (Chronic) Hypertension (Chronic) Glaucoma (Chronic) Osteoarthritis (Chronic) Allergies Sulfa (Sulfonamide Antibiotics) Allergy (Verified 07/11/18 14:29) Rash sulfamethoxazole [From Bactrim] Allergy (Verified 07/11/18 14:29) Rash trimethoprim [From Bactrim] Allergy (Verified 07/11/18 14:29) Rash Home Medications: Ambulatory Orders Medication Instructions Recorded Amlodipine [Norvasc] 5 mg PO DAILY 07/11/18 Amoxicillin 500 mg PO PRN PRN 07/11/18 Calcium Carbonate/Vitamin D3 1 each PO DAILY 07/11/18 [Calcium 600 + Vit D Tablet] Ergocalciferol [Vitamin D] 1,000 unit PO DAILY 07/11/18 Latanoprost 0.005% [Xalatan 1 drop EACH EYE QHS 07/11/18 Opthalmic] Multivit-Min/FA/Lycopen/Lutein 1 each PO DAILY 07/11/18 [Centrum Silver Tablet] Rosuvastatin Calcium [Crestor] 10 mg PO DAILY 07/11/18 Vit C/Vit E AC/Lut/Copper/Zinc 1 each PO DAILY 07/11/18 [Preservision Lutein Softgel] hydroCHLOROthiazide 12.5 mg PO DAILY 07/11/18 [Hydrochlorothiazide] Acetaminophen [Tylenol] 1,000 mg PO Q8 07/26/18 Aspirin [Aspirin, Baby] 81 mg PO BIDCM 07/26/18 Cyanocobalamin [Vitamin B12] 500 mcg PO DAILY@0800 07/26/18 Famotidine 20 mg PO DAILY 07/26/18 Ferrous Sulfate 325 mg PO BID 07/26/18 Folic Acid 1 mg PO DAILY 07/26/18 Oxycodone [Oxyir] 5 - 10 mg PO Q4H PRN PRN 4 Days 07/26/18 #30 tab Surgical History: cataract - OD., total knee arthroplasty - Right partial., - - Right foot surgery. 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 Lives: Alone Smoking Status: Never smoker Tobacco Use: Non-smoker Alcohol: None Drugs: None - *Family History Maternal History Items: No pertinent history Paternal History Items: No pertinent history Review of Systems Constitutional: Denies: Chills, Fever, Weight Change HEENT: Denies: Head Aches, Sinus Congestion, Sinus Drainage Cardiovascular: Denies: Chest Pain, Palpitations Respiratory: Denies: Cough, Shortness of breath at rest, Sputum production Gastrointestinal: Denies: Abdominal Pain, Nausea, Vomiting Genitourinary: Denies: Dysuria Musculoskeletal: Denies: Joint Pain, Joint Tenderness Skin: Denies: Rash, Wounds Neurological: Denies: Numbness, Tingling, Focal weakness Psychiatric: Denies: Anxiety, Depression, Homicidal Ideations, Suicidal Ideations Hematologic/ Lymphatic: Denies: Easy Bruising, Easy Bleeding VTE Information - Inpt Only VTE Present on Admission: No VTE Mechan Device Prophylaxis: Knee High KAMAR Hose VTE Pharm Prophylaxis ordered?: Yes Patient Problems: Active and Suspected Problems Right knee pain (Acute) Fracture of right tibial plateau (Acute) Postoperative anemia (Acute) - Physical Exam General: Alert, Oriented x3, Cooperative HEENT: Atraumatic, PERRLA, EOMI, Normocephalic Neck: Supple, No JVD, Negative Carotid Bruits Lungs: Clear to auscultation, Normal air movement Cardiovascular: Regular rate, No murmurs Abdomen: Bowel Sounds Present, Soft, Non Tender Extremities: No edema, Capillary Refill Less than 3 Seconds, - - Right knee dressed. Skin: No rashes, No breakdown Musculoskeletal: No Tenderness to Palpation of Joints or Extremities Neurological: Cranial nerves II-XII grossly intact Psych/Mental Status: Normal Affect, Appropriate Body Mass Index (BMI) 32.4 Assessment/Plan All Active Problems Right knee pain (Acute) Fracture of right tibial plateau (Acute) Postoperative anemia (Acute) 82 year old female with below past medical history hospitalize for right lateral tibial plateau fracture, underwent revision right partial knee replacement 07/23/[address] Castle, admitted to TCU with debility, here for rehabilitation, strengthening, prior to discharge home alone. Debility - PT/OT. Pain - Tylenol 1000MG Q8H, Oxycodone 5-10MG Q4H PRN moderate to severe pain. Bowel - Miralax 17GM daily, Senna/colace 2 tablets BID, Dulcolax 10MG daily PRN. Pneumonia vaccination - Administer Prevnar 13 and/or Pneumovax 23 as necessary. DVT prophylaxis - Aspirin 81MG BID thru 08/20/2018. Hypertension - Amlodipine 5MG daily, HCTZ 12.5MG daily. Calcium deficiency - Calcium with D 1 tablet daily. Vitamin D deficiency - D3 1000IU daily. Glaucoma - Xalatan 1GTT OU QHS. Nutrition - Centrum Silver 1 tablet daily. Hyperlipidemia - Rosuvastatin 10MG daily. Macular Degeneration - Preservision 1 tablet daily. Vitamin B12 deficiency - B12 500MCG daily. Iron deficiency anemia - Ferrex 150MG twice daily. Folate deficiency - Folic acid 1MG twice daily. GERD - Famotidine 20MG daily.
[2018-07-26 15:49] VITALS: BP 124/41; PULSE 94; RESP 16; TEMP 36.7; O2SAT 96
--- NOTE | 2018-07-26 15:50 | HP.PCM_ITS ---
Problem List (1) Right knee pain Status: Acute (2) Fracture of right tibial plateau Status: Acute (3) Hyperlipidemia Status: Chronic (4) Vitamin D deficiency Status: Chronic (5) Hypertension Status: Chronic (6) Glaucoma Status: Chronic (7) Osteoarthritis Status: Chronic (8) Postoperative anemia Status: Acute History of Present Illness Date of Admission: 07/26/18 Chief Complaint: Here for rehabilitation, strengthening, prior to discharge home alone. The patient is a 82 year old Female with below past medical history with followin01/18/2009 Right partial knee replacement with Dr. Andi Owusu. 07/11/2018 EKG Normal sinus rhythm, no sign of ischemia. Right knee pain since January,. Right knee aspiration NEGATIVE for infection. Physical Therapy done, left knee started to hurt. 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 07/23/2018 Dr. Castle performed revision right partial knee replacement, entire femoral, tibial components. 07/25/2018 Tylenol, Oxycodone for pain. Aspirin 81MG twice daily x 4 weeks for DVT prophylaxis. PT/OT. Encourage incentive spirometry. Postoperative anemia not requiring transfusion. 07/26/2018 Admit to TCU with debility, here for rehabilitation, strengthening, prior to discharge home alone. Stool for occult blood to evaluate anemia. Past Medical History Past Medical History (Chronic Problems): Chronic Problems Hyperlipidemia (Chronic) Vitamin D deficiency (Chronic) Hypertension (Chronic) Glaucoma (Chronic) Osteoarthritis (Chronic) Allergies Sulfa (Sulfonamide Antibiotics) Allergy (Verified 07/11/18 14:29) Rash sulfamethoxazole [From Bactrim] Allergy (Verified 07/11/18 14:29) Rash trimethoprim [From Bactrim] Allergy (Verified 07/11/18 14:29) Rash Home Medications: Ambulatory Orders Medication Instructions Recorded Amlodipine [Norvasc] 5 mg PO DAILY 07/11/18 Amoxicillin 500 mg PO PRN PRN 07/11/18 Calcium Carbonate/Vitamin D3 1 each PO DAILY 07/11/18 [Calcium 600 + Vit D Tablet] Ergocalciferol [Vitamin D] 1,000 unit PO DAILY 07/11/18 Latanoprost 0.005% [Xalatan 1 drop EACH EYE QHS 07/11/18 Opthalmic] Multivit-Min/FA/Lycopen/Lutein 1 each PO DAILY 07/11/18 [Centrum Silver Tablet] Rosuvastatin Calcium [Crestor] 10 mg PO DAILY 07/11/18 Vit C/Vit E AC/Lut/Copper/Zinc 1 each PO DAILY 07/11/18 [Preservision Lutein Softgel] hydroCHLOROthiazide 12.5 mg PO DAILY 07/11/18 [Hydrochlorothiazide] Acetaminophen [Tylenol] 1,000 mg PO Q8 07/26/18 Aspirin [Aspirin, Baby] 81 mg PO BIDCM 07/26/18 Cyanocobalamin [Vitamin B12] 500 mcg PO DAILY@0800 07/26/18 Famotidine 20 mg PO DAILY 07/26/18 Ferrous Sulfate 325 mg PO BID 07/26/18 Folic Acid 1 mg PO DAILY 07/26/18 Oxycodone [Oxyir] 5 - 10 mg PO Q4H PRN PRN 4 Days 07/26/18 #30 tab Surgical History: cataract - OD., total knee arthroplasty - Right partial., - - Right foot surgery. 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 Lives: Alone Smoking Status: Never smoker Tobacco Use: Non-smoker Alcohol: None Drugs: None - *Family History Maternal History Items: No pertinent history Paternal History Items: No pertinent history Review of Systems Constitutional: Denies: Chills, Fever, Weight Change HEENT: Denies: Head Aches, Sinus Congestion, Sinus Drainage Cardiovascular: Denies: Chest Pain, Palpitations Respiratory: Denies: Cough, Shortness of breath at rest, Sputum production Gastrointestinal: Denies: Abdominal Pain, Nausea, Vomiting Genitourinary: Denies: Dysuria Musculoskeletal: Denies: Joint Pain, Joint Tenderness Skin: Denies: Rash, Wounds Neurological: Denies: Numbness, Tingling, Focal weakness Psychiatric: Denies: Anxiety, Depression, Homicidal Ideations, Suicidal Ideations Hematologic/ Lymphatic: Denies: Easy Bruising, Easy Bleeding VTE Information - Inpt Only VTE Present on Admission: No VTE Mechan Device Prophylaxis: Knee High KAMAR Hose VTE Pharm Prophylaxis ordered?: Yes Patient Problems: Active and Suspected Problems Right knee pain (Acute) Fracture of right tibial plateau (Acute) Postoperative anemia (Acute) - Physical Exam General: Alert, Oriented x3, Cooperative HEENT: Atraumatic, PERRLA, EOMI, Normocephalic Neck: Supple, No JVD, Negative Carotid Bruits Lungs: Clear to auscultation, Normal air movement Cardiovascular: Regular rate, No murmurs Abdomen: Bowel Sounds Present, Soft, Non Tender Extremities: No edema, Capillary Refill Less than 3 Seconds, - - Right knee dressed. Skin: No rashes, No breakdown Musculoskeletal: No Tenderness to Palpation of Joints or Extremities Neurological: Cranial nerves II-XII grossly intact Psych/Mental Status: Normal Affect, Appropriate Body Mass Index (BMI) 32.4 Assessment/Plan All Active Problems Right knee pain (Acute) Fracture of right tibial plateau (Acute) Postoperative anemia (Acute) 82 year old female with below past medical history hospitalize for right lateral tibial plateau fracture, underwent revision right partial knee replacement 07/23/[address] Castle, admitted to TCU with debility, here for rehabilitation, strengthening, prior to discharge home alone. * Debility - PT/OT. * Pain - Tylenol 1000MG Q8H, Oxycodone 5-10MG Q4H PRN moderate to severe pain. * Bowel - Miralax 17GM daily, Senna/colace 2 tablets BID, Dulcolax 10MG daily PRN. * Pneumonia vaccination - Administer Prevnar 13 and/or Pneumovax 23 as necessary. * DVT prophylaxis - Aspirin 81MG BID thru 08/20/2018. * Hypertension - Amlodipine 5MG daily, HCTZ 12.5MG daily. * Calcium deficiency - Calcium with D 1 tablet daily. * Vitamin D deficiency - D3 1000IU daily. * Glaucoma - Xalatan 1GTT OU QHS. * Nutrition - Centrum Silver 1 tablet daily. * Hyperlipidemia - Rosuvastatin 10MG daily. * Macular Degeneration - Preservision 1 tablet daily. * Vitamin B12 deficiency - B12 500MCG daily. * Iron deficiency anemia - Ferrex 150MG twice daily. * Folate deficiency - Folic acid 1MG twice daily. * GERD - Famotidine 20MG daily.
[2018-07-26 15:56] VITALS: BMI 34.6
[2018-07-26 16:09] VITALS: BMI 34.6
[2018-07-26] MEDS: Iron Polysaccharide Complex 150 MG CAPSULE PO (17:43)
[2018-07-26] MEDS: Senna/Docusate Sodium 1 Tablet 2 TABLET PO (17:43)
[2018-07-26] MEDS: Aspirin 81 MG TAB.CHEW PO (17:43)
--- NOTE | 2018-07-26 17:46 | NURSING ---
pt arrived from [facility] via bed @[id number]
[2018-07-26] MEDS: Atorvastatin Calcium 20 MG Tablet PO (20:55)
[2018-07-26] MEDS: Acetaminophen 500 MG Tablet 1000 MG PO (20:55)
[2018-07-26] MEDS: Latanoprost 0.005% 1 Bottle 1 DRP EACH EYE (20:56)
[2018-07-27 06:09] VITALS: BP 166/66; PULSE 101
[2018-07-27] MEDS: amLODIPine 5 MG Tablet PO (06:10)
[2018-07-27] MEDS: Acetaminophen 500 MG Tablet 1000 MG PO ×3 (06:10→20:48)
[2018-07-27] MEDS: hydroCHLOROthiazide 12.5mg 12.5 MG PO (06:10)
[2018-07-27] MEDS: Polyethylene Glycol 3350 17 GM PACKET PO (06:11)
[2018-07-27] MEDS: Senna/Docusate Sodium 1 Tablet 2 TABLET PO (06:11)
[2018-07-27] MEDS: Famotidine 20 MG Tablet PO (06:11)
[2018-07-27 07:00] LABS: Absolute Neutrophil Count 5.8 X10^3/uL (2.0-7.7); Basophil# 0.02 X10^3/uL; Basophil% 0.3 % (0-1); Eosinophil# 0.22 X10^3/uL; Eosinophils% 2.9 % (0-5); Hematocrit 25.1 % (37-47); Hemoglobin 8.3 g/dl (12.0-15.0); Lymphocyte % 13.1 % (19-41); Mean Corp Hgb Conc 33.1 g/gl (32-36); Mean Corpuscular Hgb 28.9 pg (27.0-32.0); Mean Corpuscular Volume 87.5 fL (81-99); Mean Platelet Vol. 8.9 fl (6.2-12.0); Monocyte% 7.9 % (0-10); Neutrophil # 5.77 X10^3/uL (2.7-7.7); Neutrophil % 75.7 % (47-70); Platelet Count 264 K/mm3 (150-450); RBC Distribution Width CV 14.8 % (11.6-14.6); RBC Distribution Width SD 47.4 fl (35.1-43.9); Red Blood Count 2.87 M/mm3 (4.2-5.4); White Blood Count 7.6 K/mm3 (4.4-11.0)
[2018-07-27 07:01] LABS: POSITIVE COUNT NO; POSITIVE DIFFERENTIAL NO; POSITIVE MORPHOLOGY NO
[2018-07-27 07:14] LABS: Anion Gap 8 (5-15); BUN 15 mg/dL (7-18); BUN/Creat Ratio 20.1 RATIO (10-20); Calcium,Total 8.7 mg/dL (8.5-10.1); Chloride 100 mmol/L (98-107); Creatinine, Serum 0.74 mg/dL (0.55-1.02); EST Glomerular Filtration Rate 79 mL/min (>60); Est Glom Filt Rate - Afr Amer 95 mL/min (>60); Estimated Creatinine Clearance 48.85 ml/min; Glucose 140 mg/dL (74-106); Potassium 3.8 mmol/L (3.5-5.1); Sodium Level 136 mmol/L (136-145)
[2018-07-27] MEDS: Calcium Carb/Vitamin D 1 TABLET Tablet PO (08:53)
[2018-07-27] MEDS: Cyanocobalamin 500 MCG Tablet PO (08:53)
[2018-07-27] MEDS: Folic Acid 1 MG Tablet PO (08:53)
[2018-07-27] MEDS: Iron Polysaccharide Complex 150 MG CAPSULE PO ×2 (08:53→17:13)
[2018-07-27] MEDS: Aspirin 81 MG TAB.CHEW PO ×2 (08:54→17:13)
[2018-07-27] MEDS: Multivitamins,Ther W-Minerals Tablet 1 TABLET PO (08:54)
[2018-07-27] MEDS: Multivitamin (Healthy Eyes) Capsule 1 CAP PO (08:54)
[2018-07-27] MEDS: Tuberculin,Purif.prot.deriv. 50 TU/ML Vial 5 ML ID (10:48)
[2018-07-27 16:00] VITALS: BP 131/55; PULSE 86; RESP 14; TEMP 36.8; O2SAT 95
[2018-07-27] MEDS: Atorvastatin Calcium 20 MG Tablet PO (20:49)
[2018-07-27] MEDS: Latanoprost 0.005% 1 Bottle 1 DRP EACH EYE (20:50)
[2018-07-28] MEDS: hydroCHLOROthiazide 12.5mg 12.5 MG PO (06:18)
[2018-07-28] MEDS: Acetaminophen 500 MG Tablet 1000 MG PO ×3 (06:18→21:15)
[2018-07-28] MEDS: Famotidine 20 MG Tablet PO (06:18)
[2018-07-28] MEDS: amLODIPine 5 MG Tablet PO (06:18)
--- NOTE | 2018-07-28 07:09 | NURSING ---
Patient's Mepilex removed from right knee at this time. Patient's knee with 38 tanmay. Drainage noted coming from incision. Incision with no redness noted. Abd placed over incision, KAMAR burtone placed over abd.
[2018-07-28] MEDS: Multivitamin (Healthy Eyes) Capsule 1 CAP PO (08:59)
[2018-07-28] MEDS: Aspirin 81 MG TAB.CHEW PO ×2 (08:59→16:48)
[2018-07-28] MEDS: Multivitamins,Ther W-Minerals Tablet 1 TABLET PO (08:59)
[2018-07-28] MEDS: Calcium Carb/Vitamin D 1 TABLET Tablet PO (08:59)
[2018-07-28] MEDS: Cyanocobalamin 500 MCG Tablet PO (08:59)
[2018-07-28] MEDS: Folic Acid 1 MG Tablet PO (08:59)
[2018-07-28] MEDS: Iron Polysaccharide Complex 150 MG CAPSULE PO ×2 (08:59→16:48)
[2018-07-28] MEDS: oxyCODONE 5 MG Tablet PO (10:55)
[2018-07-28 15:50] VITALS: BP 121/49; PULSE 89; RESP 18; TEMP 37.1; O2SAT 97
[2018-07-28] MEDS: Senna/Docusate Sodium 1 Tablet 2 TABLET PO (16:48)
[2018-07-28] MEDS: Atorvastatin Calcium 20 MG Tablet PO (21:15)
[2018-07-28] MEDS: Latanoprost 0.005% 1 Bottle 1 DRP EACH EYE (21:16)
[2018-07-29] MEDS: Acetaminophen 500 MG Tablet 1000 MG PO ×3 (06:32→21:20)
[2018-07-29] MEDS: amLODIPine 5 MG Tablet PO (06:32)
[2018-07-29] MEDS: Famotidine 20 MG Tablet PO (06:32)
[2018-07-29] MEDS: hydroCHLOROthiazide 12.5mg 12.5 MG PO (06:33)
[2018-07-29] MEDS: Senna/Docusate Sodium 1 Tablet 2 TABLET PO (06:33)
[2018-07-29] MEDS: Folic Acid 1 MG Tablet PO (07:58)
[2018-07-29] MEDS: Multivitamin (Healthy Eyes) Capsule 1 CAP PO (07:58)
[2018-07-29] MEDS: Aspirin 81 MG TAB.CHEW PO ×2 (07:58→17:05)
[2018-07-29] MEDS: Iron Polysaccharide Complex 150 MG CAPSULE PO ×2 (07:58→17:06)
[2018-07-29] MEDS: Calcium Carb/Vitamin D 1 TABLET Tablet PO (07:58)
[2018-07-29] MEDS: Multivitamins,Ther W-Minerals Tablet 1 TABLET PO (07:58)
[2018-07-29] MEDS: Cyanocobalamin 500 MCG Tablet PO (07:59)
[2018-07-29] MEDS: oxyCODONE 5 MG Tablet PO ×2 (08:51→14:45)
[2018-07-29 13:11] VITALS: BP 133/57; PULSE 90
--- NOTE | 2018-07-29 14:05 | PCM.PN.RX ---
<Sid Russell D - Last Filed: 07/29/18 14:49> Progress Note - Pharmacy Subjective: TCU Admission Objective: Allergies Sulfa (Sulfonamide Antibiotics) Allergy (Verified 07/11/18 14:29) Rash sulfamethoxazole [From Bactrim] Allergy (Verified 07/11/18 14:29) Rash trimethoprim [From Bactrim] Allergy (Verified 07/11/18 14:29) Rash Current Medications Generic Name Dose Route Start Last Admin Trade Name Freq PRN Reason Stop Dose Admin Acetaminophen 1,000 mg 07/26/18 22:00 07/29/18 13:08 Tylenol PO 1,000 mg Q8 NIKKI Administration Amlodipine Besylate 5 mg 07/27/18 06:00 07/29/18 06:32 Norvasc PO 5 mg DAILY NIKKI Administration Aspirin 81 mg 07/26/18 17:00 07/29/18 07:58 Aspirin, Baby PO 08/25/18 17:01 81 mg BIDCM NIKKI Administration Atorvastatin Calcium 20 mg 07/26/18 22:00 07/28/18 21:15 Lipitor PO 20 mg QHS NIKKI Administration Bisacodyl 10 mg 07/26/18 16:00 Dulcolax PO DAILY PRN Constipation Calcium/Vitamin D 1 tablet 07/27/18 08:00 07/29/18 07:58 [facility] Cyanocobalamin 500 mcg 07/27/18 08:00 07/29/18 07:59 Vitamin B12 PO 500 mcg DAILY@0800 NIKKI Administration Famotidine 20 mg 07/27/18 06:00 07/29/18 06:32 Pepcid PO 08/26/18 06:01 20 mg DAILY NIKKI Administration Folic Acid 1 mg 07/27/18 08:00 07/29/18 07:58 [facility] Administration Hydrochlorothiazide 12.5 mg 07/27/18 06:00 07/29/18 06:33 PO 12.5 mg DAILY NIKKI Administration Latanoprost 1 drop 07/26/18 22:00 07/28/18 21:16 Xalatan Opthalmic EACH EYE 1 drop QHS NIKKI Administration Multivitamins/Minerals 1 tablet 07/27/18 08:00 07/29/18 07:58 Multivitamin With Minerals PO 1 tablet DAILY@0800 NIKKI Administration Multivitamins/Minerals 1 capsule 07/27/18 08:00 07/29/18 07:58 Healthy Eyes PO 1 capsule DAILYCM [facility] Administration Oxycodone HCl 5 - 10 mg 07/26/18 16:07 07/29/18 08:51 Oxyir PO 5 mg Q4H PRN PRN Administration MOD-SEVERE PAIN (4-10/10) Polyethylene Glycol 17 gm 07/27/18 06:00 07/29/18 06:34 Miralax PO Not Given DAILY [facility] Polysaccharide Iron Complex 150 mg 07/26/18 17:00 07/29/18 07:58 Ferrex 150 PO 150 mg BIDCM [facility] Administration Senna/Docusate Sodium 2 tablet 07/26/18 18:00 07/29/18 06:33 Senokot-S, Kaycee-Colace PO 2 tablet BID NIKKI Administration Tuberculin PPD 5 tu 08/03/18 10:00 Tubersol, Aplisol, Ppd ID 08/03/18 10:01 X1 ONE Problem List Right knee pain (Acute) Fracture of right tibial plateau (Acute) Hyperlipidemia (Chronic) Vitamin D deficiency (Chronic) Hypertension (Chronic) Glaucoma (Chronic) Osteoarthritis (Chronic) Postoperative anemia (Acute) Vital Signs Temp Pulse Resp BP Pulse Ox 98.8 F 90 18 133/57 H 97 07/28/18 15:50 07/29/18 13:11 07/28/18 15:50 07/29/18 13:11 07/28/18 15:50 Oxygen Delivery Method Room Air Weight: 71.781 kg Body Mass Index (BMI) 34.6 Sodium 136 mmol/L (136-145) 07/27/18 06:50 Potassium 3.8 mmol/L (3.5-5.1) 07/27/18 06:50 Chloride 100 mmol/L (98-107) 07/27/18 06:50 Carbon Dioxide 28.0 mmol/L (21.0-32.0) 07/27/18 06:50 Anion Gap 8 (5-15) 07/27/18 06:50 BUN 15 mg/dL (7-18) 07/27/18 06:50 Creatinine 0.74 mg/dL (0.55-1.02) 07/27/18 06:50 Est GFR (MDRD) Af Amer 95 mL/min (>60) 07/27/18 06:50 Est GFR (MDRD) Non-Af 79 mL/min (>60) 07/27/18 06:50 BUN/Creatinine Ratio 20.1 RATIO (10-20) H 07/27/18 06:50 Glucose 140 mg/dL (74-106) H 07/27/18 06:50 Assessment/Plan: 1) Pain APAP, oxycodone for breakthrough pain. Continue to monitor prn medication use, daily pain scores. 2) HTN HCTZ, amlodipine. 3) DVT PPx/GI ASA, famotidine while on ASA. Continue to monitor for bleeding/clot, GI distress. 4) HLD Atorvastatin. Continue to monitor lipids. Psychotropic Medications: None Unnecessary Medications: None Bowel Regimen: 5) Senna/s, PEG, prn bisacodyl. Continue to monitor prn medication use, for constipation/diarrhea. Date of Note:: 07/29/18 - Provider Comments Provider responsibility: Provider responsible to enter orders to implement recommendations <Abdoul Drake Chi - Last Filed: 07/29/18 17:23> Progress Note - Pharmacy Subjective: [] Objective: Allergies Sulfa (Sulfonamide Antibiotics) Allergy (Verified 07/11/18 14:29) Rash sulfamethoxazole [From Bactrim] Allergy (Verified 07/11/18 14:29) Rash trimethoprim [From Bactrim] Allergy (Verified 07/11/18 14:29) Rash Current Medications Generic Name Dose Route Start Last Admin Trade Name Freq PRN Reason Stop Dose Admin Acetaminophen 1,000 mg 07/26/18 22:00 07/29/18 13:08 Tylenol PO 1,000 mg Q8 NIKKI Administration Amlodipine Besylate 5 mg 07/27/18 06:00 07/29/18 06:32 Norvasc PO 5 mg DAILY NIKKI Administration Aspirin 81 mg 07/26/18 17:00 07/29/18 17:05 Aspirin, Baby PO 08/25/18 17:01 81 mg BIDCM NIKKI Administration Atorvastatin Calcium 20 mg 07/26/18 22:00 07/28/18 21:15 Lipitor PO 20 mg QHS NIKKI Administration Bisacodyl 10 mg 07/26/18 16:00 Dulcolax PO DAILY PRN Constipation Calcium/Vitamin D 1 tablet 07/27/18 08:00 07/29/18 07:58 Os-Qamar 500mg + [facility] Administration Cyanocobalamin 500 mcg 07/27/18 08:00 07/29/18 07:59 Vitamin B12 PO 500 mcg DAILY@0800 [facility] Administration Famotidine 20 mg 07/27/18 06:00 07/29/18 06:32 Pepcid PO 08/26/18 06:01 20 mg DAILY [facility] Administration Folic Acid 1 mg 07/27/18 08:00 07/29/18 07:58 [facility] Administration Hydrochlorothiazide 12.5 mg 07/27/18 06:00 07/29/18 06:33 PO 12.5 mg DAILY [facility] Administration Latanoprost 1 drop 07/26/18 22:00 07/28/18 21:16 Xalatan Opthalmic EACH EYE 1 drop QHS [facility] Administration Multivitamins/Minerals 1 tablet 07/27/18 08:00 07/29/18 07:58 Multivitamin With Minerals PO 1 tablet DAILY@0800 [facility] Administration Multivitamins/Minerals 1 capsule 07/27/18 08:00 07/29/18 07:58 Healthy Eyes [facility] Administration Oxycodone HCl 5 - 10 mg 07/26/18 16:07 07/29/18 14:45 Oxyir PO 5 mg Q4H PRN PRN Administration MOD-SEVERE PAIN (4-10/10) Polyethylene Glycol 17 gm 07/27/18 06:00 07/29/18 06:34 Miralax PO Not Given DAILY [facility] Polysaccharide Iron Complex 150 mg 07/26/18 17:00 07/29/18 17:06 [facility]rex 150 [facility] Administration Senna/Docusate Sodium 2 tablet 07/26/18 18:00 07/29/18 17:07 Senokot-S, Kaycee-Colace PO Not Given BID [facility] Tuberculin PPD 5 tu 08/03/18 10:00 Tubersol, Aplisol, Ppd ID 08/03/18 10:01 X1 ONE Problem List Right knee pain (Acute) Fracture of right tibial plateau (Acute) Hyperlipidemia (Chronic) Vitamin D deficiency (Chronic) Hypertension (Chronic) Glaucoma (Chronic) Osteoarthritis (Chronic) Postoperative anemia (Acute) Vital Signs Temp Pulse Resp BP Pulse Ox 98.0 F 89 16 137/56 H 95 07/29/18 15:33 07/29/18 15:33 07/29/18 15:33 07/29/18 15:33 07/29/18 15:33 Oxygen Delivery Method Room Air Weight: 71.781 kg Body Mass Index (BMI) 34.6 Sodium 136 mmol/L (136-145) 07/27/18 06:50 Potassium 3.8 mmol/L (3.5-5.1) 07/27/18 06:50 Chloride 100 mmol/L (98-107) 07/27/18 06:50 Carbon Dioxide 28.0 mmol/L (21.0-32.0) 07/27/18 06:50 Anion Gap 8 (5-15) 07/27/18 06:50 BUN 15 mg/dL (7-18) 07/27/18 06:50 Creatinine 0.74 mg/dL (0.55-1.02) 07/27/18 06:50 Est GFR (MDRD) Af Amer 95 mL/min (>60) 07/27/18 06:50 Est GFR (MDRD) Non-Af 79 mL/min (>60) 07/27/18 06:50 BUN/Creatinine Ratio 20.1 RATIO (10-20) H 07/27/18 06:50 Glucose 140 mg/dL (74-106) H 07/27/18 06:50 Assessment/Plan: Psychotropic Medications: Unnecessary Medications: Bowel Regimen: - Provider Comments Provider responsibility: Provider responsible to enter orders to implement recommendations Provider Comments to Recommendations by Pharmacy: Agree
[2018-07-29 15:33] VITALS: BP 137/56; PULSE 89; RESP 16; TEMP 36.7; O2SAT 95
--- NOTE | 2018-07-29 16:09 | VDLE_ITS ---
Reason For Study: pain RIGHT GSV is normal. CFV is compressible, spontaneous, phasic, competent and demonstrates normal augmentation. FV is compressible, spontaneous, phasic, competent and demonstrates normal augmentation. POP V is compressible, spontaneous, phasic, competent and demonstrates normal augmentation. T/P Trunk is compressible. PTV is compressible. RT PerV is compressible. Procedure Exam performed portable in patient room. The exam was diagnostic. A preliminary report was called and/or faxed to the pt's RN. Interpretation Summary Deep veins of the right lower extremity are patent and compressible segmentally. There is no evidence of right lower extremity deep vein thrombosis. Valvular competence appears intact within the proximal deep venous system on the right . The right greater saphenous vein appears patent and compressible segmentally. Ordering Physician: Abdoul Drake Performed By: Grover Durham RVT
[2018-07-29] MEDS: Baclofen 10 MG Tablet PO (17:05)
--- NOTE | 2018-07-29 18:05 | NURSING ---
NO for Keflex 500mg PO h1iymcy.
--- NOTE | 2018-07-29 18:31 | NURSING ---
Dr. Drake reviewed doppler results, NNO.
[2018-07-29] MEDS: Cephalexin 250 MG Capsule PO ×2 (19:04→21:20)
--- NOTE | 2018-07-29 19:46 | PCM.TCUNOT ---
Subjective: Resident seen in room, sitting in chair, eating supper. Joy complained of intense pain behind right knee this afternoon, she states the pain has resolved now, but she has some tenderness along right lateral knee with palpation. Vitals/I&O's: Vital Signs Temp Pulse Resp BP Pulse Ox 98.0 F 89 16 137/56 H 95 07/29/18 15:33 07/29/18 15:33 07/29/18 15:33 07/29/18 15:33 07/29/18 15:33 Oxygen Delivery Method Room Air Weight: 71.781 kg Body Mass Index (BMI) 34.6 Intake and Output for Last 24 Hours 07/27/18 07/28/18 07/29/18 23:59 23:59 23:59 Intake Total 1200 / 1200 840 / 840 1100 / 1100 Balance 1200 / 1200 840 / 840 1100 / 1100 Past Medical History Past Medical History (Chronic Problems): Chronic Problems Hyperlipidemia (Chronic) Vitamin D deficiency (Chronic) Hypertension (Chronic) Glaucoma (Chronic) Osteoarthritis (Chronic) Allergies Sulfa (Sulfonamide Antibiotics) Allergy (Verified 07/11/18 14:29) Rash sulfamethoxazole [From Bactrim] Allergy (Verified 07/11/18 14:29) Rash trimethoprim [From Bactrim] Allergy (Verified 07/11/18 14:29) Rash Home Medications: Ambulatory Orders Medication Instructions Recorded Amlodipine [Norvasc] 5 mg PO DAILY 07/11/18 Amoxicillin 500 mg PO PRN PRN 07/11/18 Calcium Carbonate/Vitamin D3 1 each PO DAILY 07/11/18 [Calcium 600 + Vit D Tablet] Ergocalciferol [Vitamin D] 1,000 unit PO DAILY 07/11/18 Latanoprost 0.005% [Xalatan 1 drop EACH EYE QHS 07/11/18 Opthalmic] Multivit-Min/FA/Lycopen/Lutein 1 each PO DAILY 07/11/18 [Centrum Silver Tablet] Rosuvastatin Calcium [Crestor] 10 mg PO DAILY 07/11/18 Vit C/Vit E AC/Lut/Copper/Zinc 1 each PO DAILY 07/11/18 [Preservision Lutein Softgel] hydroCHLOROthiazide 12.5 mg PO DAILY 07/11/18 [Hydrochlorothiazide] Acetaminophen [Tylenol] 1,000 mg PO Q8 07/26/18 Aspirin [Aspirin, Baby] 81 mg PO BIDCM 07/26/18 Cyanocobalamin [Vitamin B12] 500 mcg PO DAILY@0800 07/26/18 Famotidine 20 mg PO DAILY 07/26/18 Ferrous Sulfate 325 mg PO BID 07/26/18 Folic Acid 1 mg PO DAILY 07/26/18 Oxycodone [Oxyir] 5 - 10 mg PO Q4H PRN PRN 4 Days 07/26/18 #30 tab Surgical History: cataract - OD., total knee arthroplasty - Right partial., - - Right foot surgery. 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 Lives: Alone Smoking Status: Never smoker Tobacco Use: Non-smoker Alcohol: None Drugs: None - *Family History Maternal History Items: No pertinent history Paternal History Items: No pertinent history Capacity - Capacity Assessment Tool Can the patient make a choice & communicate that choice?: Yes Can the patient understand benefits, risks and alternatives?: Yes Can the patient make a logical, rational choice?: Yes Is the choice the patient makes consistent w/ their values?: Yes Is there an impending, emergent risk to the patient?: No Does the patient have an Advance Directive?: Yes Is there a Surrogate Available?: Yes i.e. HCPOA: Yes i.e. close relative (spouse, child, parent, sibling)?: Yes Review of Systems Constitutional: Denies: Chills, Fever, Weight Change HEENT: Denies: Head Aches, Sinus Congestion, Sinus Drainage Cardiovascular: Denies: Chest Pain, Palpitations Respiratory: Denies: Cough, Shortness of breath at rest, Sputum production Gastrointestinal: Denies: Abdominal Pain, Nausea, Vomiting Genitourinary: Denies: Dysuria Musculoskeletal: Reports: - - Right posterior knee pain.. Denies: Joint Pain, Joint Tenderness Skin: Denies: Rash, Wounds Neurological: Denies: Numbness, Tingling, Focal weakness Psychiatric: Denies: Anxiety, Depression, Homicidal Ideations, Suicidal Ideations Hematologic/ Lymphatic: Denies: Easy Bruising, Easy Bleeding Patient Problems: Active and Suspected Problems Right knee pain (Acute) Fracture of right tibial plateau (Acute) Postoperative anemia (Acute) - Physical Exam General: Alert, Oriented x3, Cooperative HEENT: Atraumatic, PERRLA, EOMI, Normocephalic Neck: Supple, No JVD, Negative Carotid Bruits Lungs: Clear to auscultation, Normal air movement Cardiovascular: Regular rate, No murmurs Abdomen: Bowel Sounds Present, Soft, Non Tender Extremities: No edema, Capillary Refill Less than 3 Seconds Skin: No rashes, No breakdown, Incision - Right knee incision tanmay intact. Musculoskeletal: No Tenderness to Palpation of Joints or Extremities, Tenderness - Right lateral knee. Neurological: Cranial nerves II-XII grossly intact Psych/Mental Status: Normal Affect, Appropriate Vital Signs Temp Pulse Resp BP Pulse Ox 98.0 F 89 16 137/56 H 95 07/29/18 15:33 07/29/18 15:33 07/29/18 15:33 07/29/18 15:33 07/29/18 15:33 Oxygen Delivery Method Room Air Weight: 71.781 kg Body Mass Index (BMI) 34.6 Intake and Output for Last 24 Hours 07/27/18 07/28/18 07/29/18 23:59 23:59 23:59 Intake Total 1200 / 1200 840 / 840 1100 / 1100 Balance 1200 / 1200 840 / 840 1100 / 1100 Assessment/Plan All Active Problems Right knee pain (Acute) Fracture of right tibial plateau (Acute) Postoperative anemia (Acute) 82 year old female with below past medical history hospitalize for right lateral tibial plateau fracture, underwent revision right partial knee replacement 07/23/[address] Castle, admitted to TCU with debility, here for rehabilitation, strengthening, prior to discharge home alone. Right knee pain - +Florian's sign per nursing staff, doppler ultrasound of bilateral lower extremities NEGATIVE for DVT. Muscle spasm - Resident states while prosthetics lab technician was using probe on right leg, her pain went away, she was also given Baclofen 10MG PO x 1 dose. Incisional tenderness - Keflex 250MG PO x 1 dose, then Q8H x 7 days.
--- NOTE | 2018-07-29 19:51 | PN_ITS ---
Subjective: Resident seen in room, sitting in chair, eating supper. Joy complained of intense pain behind right knee this afternoon, she states the pain has resolved now, but she has some tenderness along right lateral knee with palpation. Vitals/I&O's: Vital Signs Temp Pulse Resp BP Pulse Ox 98.0 F 89 16 137/56 H 95 07/29/18 15:33 07/29/18 15:33 07/29/18 15:33 07/29/18 15:33 07/29/18 15:33 Oxygen Delivery Method Room Air Weight: 71.781 kg Body Mass Index (BMI) 34.6 Intake and Output for Last 24 Hours 07/27/18 07/28/18 07/29/18 23:59 23:59 23:59 Intake Total 1200 / 1200 840 / 840 1100 / 1100 Balance 1200 / 1200 840 / 840 1100 / 1100 Past Medical History Past Medical History (Chronic Problems): Chronic Problems Hyperlipidemia (Chronic) Vitamin D deficiency (Chronic) Hypertension (Chronic) Glaucoma (Chronic) Osteoarthritis (Chronic) Allergies Sulfa (Sulfonamide Antibiotics) Allergy (Verified 07/11/18 14:29) Rash sulfamethoxazole [From Bactrim] Allergy (Verified 07/11/18 14:29) Rash trimethoprim [From Bactrim] Allergy (Verified 07/11/18 14:29) Rash Home Medications: Ambulatory Orders Medication Instructions Recorded Amlodipine [Norvasc] 5 mg PO DAILY 07/11/18 Amoxicillin 500 mg PO PRN PRN 07/11/18 Calcium Carbonate/Vitamin D3 1 each PO DAILY 07/11/18 [Calcium 600 + Vit D Tablet] Ergocalciferol [Vitamin D] 1,000 unit PO DAILY 07/11/18 Latanoprost 0.005% [Xalatan 1 drop EACH EYE QHS 07/11/18 Opthalmic] Multivit-Min/FA/Lycopen/Lutein 1 each PO DAILY 07/11/18 [Centrum Silver Tablet] Rosuvastatin Calcium [Crestor] 10 mg PO DAILY 07/11/18 Vit C/Vit E AC/Lut/Copper/Zinc 1 each PO DAILY 07/11/18 [Preservision Lutein Softgel] hydroCHLOROthiazide 12.5 mg PO DAILY 07/11/18 [Hydrochlorothiazide] Acetaminophen [Tylenol] 1,000 mg PO Q8 07/26/18 Aspirin [Aspirin, Baby] 81 mg PO BIDCM 07/26/18 Cyanocobalamin [Vitamin B12] 500 mcg PO DAILY@0800 07/26/18 Famotidine 20 mg PO DAILY 07/26/18 Ferrous Sulfate 325 mg PO BID 07/26/18 Folic Acid 1 mg PO DAILY 07/26/18 Oxycodone [Oxyir] 5 - 10 mg PO Q4H PRN PRN 4 Days 07/26/18 #30 tab Surgical History: cataract - OD., total knee arthroplasty - Right partial., - - Right foot surgery. 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 Lives: Alone Smoking Status: Never smoker Tobacco Use: Non-smoker Alcohol: None Drugs: None - *Family History Maternal History Items: No pertinent history Paternal History Items: No pertinent history Capacity - Capacity Assessment Tool Can the patient make a choice & communicate that choice?: Yes Can the patient understand benefits, risks and alternatives?: Yes Can the patient make a logical, rational choice?: Yes Is the choice the patient makes consistent w/ their values?: Yes Is there an impending, emergent risk to the patient?: No Does the patient have an Advance Directive?: Yes Is there a Surrogate Available?: Yes i.e. HCPOA: Yes i.e. close relative (spouse, child, parent, sibling)?: Yes Review of Systems Constitutional: Denies: Chills, Fever, Weight Change HEENT: Denies: Head Aches, Sinus Congestion, Sinus Drainage Cardiovascular: Denies: Chest Pain, Palpitations Respiratory: Denies: Cough, Shortness of breath at rest, Sputum production Gastrointestinal: Denies: Abdominal Pain, Nausea, Vomiting Genitourinary: Denies: Dysuria Musculoskeletal: Reports: - - Right posterior knee pain.. Denies: Joint Pain, Joint Tenderness Skin: Denies: Rash, Wounds Neurological: Denies: Numbness, Tingling, Focal weakness Psychiatric: Denies: Anxiety, Depression, Homicidal Ideations, Suicidal Ideations Hematologic/ Lymphatic: Denies: Easy Bruising, Easy Bleeding Patient Problems: Active and Suspected Problems Right knee pain (Acute) Fracture of right tibial plateau (Acute) Postoperative anemia (Acute) - Physical Exam General: Alert, Oriented x3, Cooperative HEENT: Atraumatic, PERRLA, EOMI, Normocephalic Neck: Supple, No JVD, Negative Carotid Bruits Lungs: Clear to auscultation, Normal air movement Cardiovascular: Regular rate, No murmurs Abdomen: Bowel Sounds Present, Soft, Non Tender Extremities: No edema, Capillary Refill Less than 3 Seconds Skin: No rashes, No breakdown, Incision - Right knee incision tanmay intact. Musculoskeletal: No Tenderness to Palpation of Joints or Extremities, Tenderness - Right lateral knee. Neurological: Cranial nerves II-XII grossly intact Psych/Mental Status: Normal Affect, Appropriate Vital Signs Temp Pulse Resp BP Pulse Ox 98.0 F 89 16 137/56 H 95 07/29/18 15:33 07/29/18 15:33 07/29/18 15:33 07/29/18 15:33 07/29/18 15:33 Oxygen Delivery Method Room Air Weight: 71.781 kg Body Mass Index (BMI) 34.6 Intake and Output for Last 24 Hours 07/27/18 07/28/18 07/29/18 23:59 23:59 23:59 Intake Total 1200 / 1200 840 / 840 1100 / 1100 Balance 1200 / 1200 840 / 840 1100 / 1100 Assessment/Plan All Active Problems Right knee pain (Acute) Fracture of right tibial plateau (Acute) Postoperative anemia (Acute) 82 year old female with below past medical history hospitalize for right lateral tibial plateau fracture, underwent revision right partial knee replacement 07/23/[address] Castle, admitted to TCU with debility, here for rehabilitation, strengthening, prior to discharge home alone. * Right knee pain - +Florian's sign per nursing staff, doppler ultrasound of bilateral lower extremities NEGATIVE for DVT. * Muscle spasm - Resident states while field artillery targeting technician was using probe on right leg, her pain went away, she was also given Baclofen 10MG PO x 1 dose. * Incisional tenderness - Keflex 250MG PO x 1 dose, then Q8H x 7 days.
[2018-07-29] MEDS: Atorvastatin Calcium 20 MG Tablet PO (21:20)
[2018-07-29] MEDS: Latanoprost 0.005% 1 Bottle 1 DRP EACH EYE (21:22)
[2018-07-30] MEDS: amLODIPine 5 MG Tablet PO (06:32)
[2018-07-30] MEDS: Famotidine 20 MG Tablet PO (06:32)
[2018-07-30] MEDS: Cephalexin 250 MG Capsule PO ×3 (06:32→21:06)
[2018-07-30] MEDS: hydroCHLOROthiazide 12.5mg 12.5 MG PO (06:32)
[2018-07-30] MEDS: Acetaminophen 500 MG Tablet 1000 MG PO ×3 (06:32→21:06)
[2018-07-30] MEDS: Multivitamin (Healthy Eyes) Capsule 1 CAP PO (08:59)
[2018-07-30] MEDS: Iron Polysaccharide Complex 150 MG CAPSULE PO ×2 (08:59→16:55)
[2018-07-30] MEDS: Multivitamins,Ther W-Minerals Tablet 1 TABLET PO (08:59)
[2018-07-30] MEDS: Folic Acid 1 MG Tablet PO (08:59)
[2018-07-30] MEDS: Cyanocobalamin 500 MCG Tablet PO (08:59)
[2018-07-30] MEDS: Aspirin 81 MG TAB.CHEW PO ×2 (08:59→16:55)
[2018-07-30] MEDS: Calcium Carb/Vitamin D 1 TABLET Tablet PO (08:59)
--- NOTE | 2018-07-30 09:51 | NURSING ---
Dr Castle office notified of Pt being started on Keflex for incision redness. nurse will update Dr Castle, will call if any orders.
[2018-07-30] MEDS: oxyCODONE 5 MG Tablet PO (13:06)
[2018-07-30 15:19] VITALS: BP 153/63; PULSE 88; RESP 24; TEMP 36.8; O2SAT 95
[2018-07-30] MEDS: Senna/Docusate Sodium 1 Tablet 2 TABLET PO (16:54)
[2018-07-30] MEDS: Latanoprost 0.005% 1 Bottle 1 DRP EACH EYE (21:06)
[2018-07-30] MEDS: Atorvastatin Calcium 20 MG Tablet PO (21:07)
[2018-07-31] MEDS: Acetaminophen 500 MG Tablet 1000 MG PO ×3 (06:12→21:08)
[2018-07-31] MEDS: Cephalexin 250 MG Capsule PO ×3 (06:13→21:09)
[2018-07-31] MEDS: Senna/Docusate Sodium 1 Tablet 2 TABLET PO ×2 (06:13→16:53)
[2018-07-31] MEDS: Famotidine 20 MG Tablet PO (06:13)
[2018-07-31] MEDS: hydroCHLOROthiazide 12.5mg 12.5 MG PO (06:13)
[2018-07-31] MEDS: amLODIPine 5 MG Tablet PO (06:13)
[2018-07-31] MEDS: Multivitamins,Ther W-Minerals Tablet 1 TABLET PO (08:31)
[2018-07-31] MEDS: Iron Polysaccharide Complex 150 MG CAPSULE PO ×2 (08:31→16:52)
[2018-07-31] MEDS: Folic Acid 1 MG Tablet PO (08:31)
[2018-07-31] MEDS: Aspirin 81 MG TAB.CHEW PO ×2 (08:31→16:52)
[2018-07-31] MEDS: Calcium Carb/Vitamin D 1 TABLET Tablet PO (08:31)
[2018-07-31] MEDS: Multivitamin (Healthy Eyes) Capsule 1 CAP PO (08:31)
[2018-07-31] MEDS: Cyanocobalamin 500 MCG Tablet PO (08:31)
[2018-07-31] MEDS: oxyCODONE 5 MG Tablet PO ×2 (08:33→13:05)
--- NOTE | 2018-07-31 15:40 | CHAPLAIN ---
Type of Pastoral Visit _x__ Initial Visit ___ Follow-up Visit ___ On-call Visit ___ General Patient Visit ___ Spiritual Assessment ___ Family Conference ___ Bereavement ___ Rapid Response ___ Code Blue ___ Other (describe below) Pastoral Care Referral From _x__ Patient ___ Family ___ Nurse ___ Physician ___ Librarian Head ___ Nail Machine Operator ___ Other (describe below) Sacrament/Intervention _x__ Active listening ___ Anointing ___ Rastafari ___ Bereavement ___ Communion _x__ Gisella exploration ___ _x__ Life review _x__ Prayer ___ Reconciliation ___ Sacrament of Sick ___ Supportive presence ___ Wedding ___ Other (describe below) Pastoral Comments
[2018-07-31 16:00] VITALS: BP 133/68; PULSE 83; RESP 18; TEMP 36.8; O2SAT 96
[2018-07-31] MEDS: Atorvastatin Calcium 20 MG Tablet PO (21:08)
[2018-07-31] MEDS: Latanoprost 0.005% 1 Bottle 1 DRP EACH EYE (21:09)
[2018-08-01] MEDS: Acetaminophen 500 MG Tablet 1000 MG PO ×3 (06:30→21:41)
[2018-08-01] MEDS: amLODIPine 5 MG Tablet PO (06:30)
[2018-08-01] MEDS: Famotidine 20 MG Tablet PO (06:30)
[2018-08-01] MEDS: hydroCHLOROthiazide 12.5mg 12.5 MG PO (06:30)
[2018-08-01] MEDS: Cephalexin 250 MG Capsule PO ×3 (06:31→21:41)
[2018-08-01] MEDS: Iron Polysaccharide Complex 150 MG CAPSULE PO ×2 (08:03→16:36)
[2018-08-01] MEDS: Aspirin 81 MG TAB.CHEW PO ×2 (08:03→16:36)
[2018-08-01] MEDS: Folic Acid 1 MG Tablet PO (08:03)
[2018-08-01] MEDS: Multivitamins,Ther W-Minerals Tablet 1 TABLET PO (08:03)
[2018-08-01] MEDS: Multivitamin (Healthy Eyes) Capsule 1 CAP PO (08:03)
[2018-08-01] MEDS: Cyanocobalamin 500 MCG Tablet PO (08:03)
[2018-08-01] MEDS: Calcium Carb/Vitamin D 1 TABLET Tablet PO (08:03)
[2018-08-01] MEDS: oxyCODONE 5 MG Tablet PO (09:27)
--- NOTE | 2018-08-01 13:12 | MDS.RN ---
Pain interview for adalid 08/02/18 completed.
--- NOTE | 2018-08-01 13:43 | CASEMGMT ---
Addendum entered by Alma Medel 08/01/18 15:16: Student social work MDS documentation reviewed. [facility] Original Note: Brief interview for mental status (BIMS) and mood (PHQ-9) completed on this day. BIMS score . PHQ-9 score 05/25. Antonio Crouch social work student
[2018-08-01 16:00] VITALS: BP 136/51; PULSE 92; RESP 16; TEMP 36.9; O2SAT 98
[2018-08-01] MEDS: Latanoprost 0.005% 1 Bottle 1 DRP EACH EYE (21:40)
[2018-08-01] MEDS: Atorvastatin Calcium 20 MG Tablet PO (21:41)
[2018-08-02] MEDS: Cephalexin 250 MG Capsule PO ×3 (06:31→21:20)
[2018-08-02] MEDS: hydroCHLOROthiazide 12.5mg 12.5 MG PO (06:31)
[2018-08-02] MEDS: Acetaminophen 500 MG Tablet 1000 MG PO ×3 (06:32→21:20)
[2018-08-02] MEDS: Famotidine 20 MG Tablet PO (06:33)
[2018-08-02] MEDS: Senna/Docusate Sodium 1 Tablet 2 TABLET PO (06:33)
[2018-08-02] MEDS: amLODIPine 5 MG Tablet PO (06:34)
[2018-08-02] MEDS: Aspirin 81 MG TAB.CHEW PO ×2 (07:52→16:25)
[2018-08-02] MEDS: Cyanocobalamin 500 MCG Tablet PO (07:52)
[2018-08-02] MEDS: Multivitamin (Healthy Eyes) Capsule 1 CAP PO (07:52)
[2018-08-02] MEDS: Calcium Carb/Vitamin D 1 TABLET Tablet PO (07:52)
[2018-08-02] MEDS: Folic Acid 1 MG Tablet PO (07:52)
[2018-08-02] MEDS: Iron Polysaccharide Complex 150 MG CAPSULE PO ×2 (07:53→16:26)
[2018-08-02] MEDS: Multivitamins,Ther W-Minerals Tablet 1 TABLET PO (07:53)
[2018-08-02 15:18] VITALS: BP 109/55; PULSE 85; RESP 16; TEMP 36.9; O2SAT 98
[2018-08-02] MEDS: Atorvastatin Calcium 20 MG Tablet PO (21:20)
[2018-08-02] MEDS: Latanoprost 0.005% 1 Bottle 1 DRP EACH EYE (21:20)
[2018-08-03] MEDS: hydroCHLOROthiazide 12.5mg 12.5 MG PO (06:26)
[2018-08-03] MEDS: Cephalexin 250 MG Capsule PO ×3 (06:26→22:02)
[2018-08-03] MEDS: Acetaminophen 500 MG Tablet 1000 MG PO ×3 (06:26→22:01)
[2018-08-03] MEDS: Famotidine 20 MG Tablet PO (06:26)
[2018-08-03] MEDS: amLODIPine 5 MG Tablet PO (06:26)
[2018-08-03 07:21] LABS: Absolute Lymphocyte Count 0.78 X10^3/ul (0.83-4.51); Absolute Neutrophil Count 3.8 X10^3/uL (2.0-7.7); Basophil# 0.02 X10^3/uL; Basophil% 0.4 % (0-1); Eosinophil# 0.19 X10^3/uL; Eosinophils% 3.5 % (0-5); Hematocrit 25.4 % (37-47); Hemoglobin 8.2 g/dl (12.0-15.0); Lymphocyte # 0.78 X10^3/ul (4.0); Lymphocyte % 14.2 % (19-41); Mean Corp Hgb Conc 32.3 g/gl (32-36); Mean Corpuscular Hgb 28.4 pg (27.0-32.0); Mean Corpuscular Volume 87.9 fL (81-99); Mean Platelet Vol. 9.2 fl (6.2-12.0); Monocyte# 0.68 X10^3/uL; Monocyte% 12.4 % (0-10); Neutrophil # 3.81 X10^3/uL (2.7-7.7); Neutrophil % 69.3 % (47-70); POSITIVE COUNT NO; POSITIVE DIFFERENTIAL NO; POSITIVE MORPHOLOGY NO; Platelet Count 402 K/mm3 (150-450); RBC Distribution Width CV 14.5 % (11.6-14.6); RBC Distribution Width SD 44.4 fl (35.1-43.9); Red Blood Count 2.89 M/mm3 (4.2-5.4); White Blood Count 5.5 K/mm3 (4.4-11.0)
[2018-08-03 07:31] LABS: Anion Gap 4 (5-15); BUN 13 mg/dL (7-18); BUN/Creat Ratio 19.4 RATIO (10-20); Calcium,Total 8.5 mg/dL (8.5-10.1); Chloride 99 mmol/L (98-107); Creatinine, Serum 0.67 mg/dL (0.55-1.02); EST Glomerular Filtration Rate 89 mL/min (>60); Est Glom Filt Rate - Afr Amer 108 mL/min (>60); Glucose 100 mg/dL (74-106); Potassium 3.9 mmol/L (3.5-5.1); Sodium Level 131 mmol/L (136-145)
[2018-08-03] MEDS: Multivitamin (Healthy Eyes) Capsule 1 CAP PO (08:42)
[2018-08-03] MEDS: Calcium Carb/Vitamin D 1 TABLET Tablet PO (08:43)
[2018-08-03] MEDS: Iron Polysaccharide Complex 150 MG CAPSULE PO ×2 (08:43→17:48)
[2018-08-03] MEDS: Aspirin 81 MG TAB.CHEW PO ×2 (08:43→17:48)
[2018-08-03] MEDS: Cyanocobalamin 500 MCG Tablet PO (08:43)
[2018-08-03] MEDS: Folic Acid 1 MG Tablet PO (08:43)
[2018-08-03] MEDS: Multivitamins,Ther W-Minerals Tablet 1 TABLET PO (08:43)
--- NOTE | 2018-08-03 10:15 | NURSING ---
New order to d/c HCTZ and recheck BMP
[2018-08-03] MEDS: Tuberculin,Purif.prot.deriv. 50 TU/ML Vial 5 ML ID (11:16)
[2018-08-03 15:03] VITALS: BP 129/46; PULSE 86; RESP 16; TEMP 36.6; O2SAT 94
[2018-08-03] MEDS: Atorvastatin Calcium 20 MG Tablet PO (22:01)
[2018-08-03] MEDS: Latanoprost 0.005% 1 Bottle 1 DRP EACH EYE (22:01)
[2018-08-04] MEDS: Cephalexin 250 MG Capsule PO ×3 (06:18→20:53)
[2018-08-04] MEDS: Acetaminophen 500 MG Tablet 1000 MG PO ×3 (06:19→20:53)
[2018-08-04] MEDS: Famotidine 20 MG Tablet PO (06:20)
[2018-08-04] MEDS: amLODIPine 5 MG Tablet PO (06:20)
[2018-08-04] MEDS: Calcium Carb/Vitamin D 1 TABLET Tablet PO (08:24)
[2018-08-04] MEDS: Aspirin 81 MG TAB.CHEW PO ×2 (08:24→16:38)
[2018-08-04] MEDS: Multivitamin (Healthy Eyes) Capsule 1 CAP PO (08:24)
[2018-08-04] MEDS: Multivitamins,Ther W-Minerals Tablet 1 TABLET PO (08:24)
[2018-08-04] MEDS: Folic Acid 1 MG Tablet PO (08:24)
[2018-08-04] MEDS: Iron Polysaccharide Complex 150 MG CAPSULE PO ×2 (08:24→16:38)
[2018-08-04] MEDS: Cyanocobalamin 500 MCG Tablet PO (08:24)
[2018-08-04] MEDS: oxyCODONE 5 MG Tablet PO (11:52)
--- NOTE | 2018-08-04 14:35 | VDLE_ITS ---
Reason For Study: LEG PAIN RIGHT LEFT GSV is normal. GSV is normal. CFV is compressible, spontaneous, phasic, CFV is compressible, spontaneous, phasic, competent and demonstrates normal competent, and demonstrates normal augmentation. augmentation. FV is compressible, spontaneous, phasic, FV is compressible, spontaneous, phasic, competent and demonstrates normal competent and demonstrates normal augmentation. augmentation. POP V is compressible, spontaneous, phasic, POP V is compressible, spontaneous, phasic, competent and demonstrates normal competent and demonstrates normal augmentation. augmentation. T/P Trunk is compressible. T/P Trunk is compressible. PTV is compressible. PTV is compressible. RT PerV is compressible. LT PerV is compressible. Procedure Exam performed portable in patient room. A preliminary report was called and/or faxed to Dr. Drake. Interpretation Summary Deep veins of the lower extremities are bilaterally patent and compressible segmentally. There is no evidence of deep vein thrombosis on either side. Valvular competence appears intact within the proximal deep venous systems bilaterally. The greater saphenous veins appear bilaterally patent and compressible segmentally. Ordering Physician: Abdoul Drake Referring Physician: Abdoul Drake Chi Performed By: Gayathri Shelton RVT
--- NOTE | 2018-08-04 14:36 | NURSING ---
Addendum entered by Magali Green 08/04/18 16:35: DOPPLER NEGATIVE. DR DRAKE UPDATED. Original Note: Resident complains of increased pain to Rt lower leg near incision. Pain is located more towards calf area and area feels hardened. Dr Drake aware and orders for doppler scan to bilateral legs.
[2018-08-04 16:00] VITALS: BP 134/62; PULSE 83; RESP 16; TEMP 36.6
[2018-08-04] MEDS: Senna/Docusate Sodium 1 Tablet 2 TABLET PO (16:38)
[2018-08-04] MEDS: Latanoprost 0.005% 1 Bottle 1 DRP EACH EYE (20:52)
[2018-08-04] MEDS: Atorvastatin Calcium 20 MG Tablet PO (20:54)
[2018-08-05] MEDS: Acetaminophen 500 MG Tablet 1000 MG PO ×3 (05:11→21:05)
[2018-08-05] MEDS: Famotidine 20 MG Tablet PO (05:11)
[2018-08-05] MEDS: amLODIPine 5 MG Tablet PO (05:11)
[2018-08-05] MEDS: Cephalexin 250 MG Capsule PO ×3 (05:12→21:05)
[2018-08-05 06:33] LABS: Anion Gap 5 (5-15); BUN 14 mg/dL (7-18); BUN/Creat Ratio 18.3 RATIO (10-20); Calcium,Total 8.7 mg/dL (8.5-10.1); Chloride 100 mmol/L (98-107); Creatinine, Serum 0.76 mg/dL (0.55-1.02); EST Glomerular Filtration Rate 77 mL/min (>60); Est Glom Filt Rate - Afr Amer 93 mL/min (>60); Glucose 93 mg/dL (74-106); Potassium 4.2 mmol/L (3.5-5.1); Sodium Level 133 mmol/L (136-145)
[2018-08-05] MEDS: Multivitamin (Healthy Eyes) Capsule 1 CAP PO (08:07)
[2018-08-05] MEDS: Aspirin 81 MG TAB.CHEW PO ×2 (08:07→16:54)
[2018-08-05] MEDS: Cyanocobalamin 500 MCG Tablet PO (08:07)
[2018-08-05] MEDS: Calcium Carb/Vitamin D 1 TABLET Tablet PO (08:07)
[2018-08-05] MEDS: Multivitamins,Ther W-Minerals Tablet 1 TABLET PO (08:07)
[2018-08-05] MEDS: Iron Polysaccharide Complex 150 MG CAPSULE PO ×2 (08:07→16:54)
[2018-08-05] MEDS: Folic Acid 1 MG Tablet PO (08:07)
[2018-08-05] MEDS: oxyCODONE 5 MG Tablet PO (11:35)
[2018-08-05 16:00] VITALS: BP 120/51; PULSE 80; RESP 18; TEMP 36.5; O2SAT 95
[2018-08-05] MEDS: Atorvastatin Calcium 20 MG Tablet PO (21:05)
[2018-08-05] MEDS: Latanoprost 0.005% 1 Bottle 1 DRP EACH EYE (21:06)
[2018-08-06] MEDS: Famotidine 20 MG Tablet PO (06:16)
[2018-08-06] MEDS: Acetaminophen 500 MG Tablet 1000 MG PO ×2 (06:17→16:48)
[2018-08-06] MEDS: amLODIPine 5 MG Tablet PO (06:18)
--- NOTE | 2018-08-06 06:21 | NURSING ---
Pt questioning if the dose of her Tylenol could be decreased or possibly not taking it as much. This nurse educated pt that medication could be made PRN and pt would have to ask for it if she is having any pain. Pt in agreement. Will ask Dr. Drake.
[2018-08-06] MEDS: Multivitamins,Ther W-Minerals Tablet 1 TABLET PO (09:53)
[2018-08-06] MEDS: Iron Polysaccharide Complex 150 MG CAPSULE PO ×2 (09:53→16:46)
[2018-08-06] MEDS: Cyanocobalamin 500 MCG Tablet PO (09:53)
[2018-08-06] MEDS: Aspirin 81 MG TAB.CHEW PO ×2 (09:53→16:46)
[2018-08-06] MEDS: Folic Acid 1 MG Tablet PO (09:53)
[2018-08-06] MEDS: Calcium Carb/Vitamin D 1 TABLET Tablet PO (09:53)
[2018-08-06] MEDS: Multivitamin (Healthy Eyes) Capsule 1 CAP PO (09:53)
--- NOTE | 2018-08-06 10:01 | CASEMGMT ---
Social Work Team meeting held with pt and son present. Pt is receiving PT/OT and progressing with therapy. No d/c date has been set at this time. Pt lives at home alone and plans to return there upon d/c. She is agreeable to home health therapy if needed. Will continue with treatment plan at this time. [facility]
--- NOTE | 2018-08-06 13:31 | NURSING ---
Patient returned from appointment with RAO Mcarthur. Continue ASA 81mg PO BID x 2 more weeks then go down to daily. follow up in 4 weeks.
[2018-08-06 15:35] VITALS: BP 144/55; PULSE 83; RESP 18; TEMP 36.5; O2SAT 97
[2018-08-06] MEDS: Senna/Docusate Sodium 1 Tablet 2 TABLET PO (16:46)
[2018-08-06] MEDS: Latanoprost 0.005% 1 Bottle 1 DRP EACH EYE (21:31)
[2018-08-06] MEDS: Atorvastatin Calcium 20 MG Tablet PO (21:31)
[2018-08-07] MEDS: Acetaminophen 500 MG Tablet 1000 MG PO ×3 (06:19→21:02)
[2018-08-07] MEDS: amLODIPine 5 MG Tablet PO (06:20)
[2018-08-07] MEDS: Famotidine 20 MG Tablet PO (06:20)
--- NOTE | 2018-08-07 07:00 | MDS.RN ---
Information for the mds was obtained from review of the clinical record, interview of resident, staff, and direct observation of resident's care.
[2018-08-07] MEDS: Calcium Carb/Vitamin D 1 TABLET Tablet PO (07:59)
[2018-08-07] MEDS: Multivitamin (Healthy Eyes) Capsule 1 CAP PO (07:59)
[2018-08-07] MEDS: Aspirin 81 MG TAB.CHEW PO ×2 (07:59→17:26)
[2018-08-07] MEDS: Multivitamins,Ther W-Minerals Tablet 1 TABLET PO (07:59)
[2018-08-07] MEDS: Cyanocobalamin 500 MCG Tablet PO (07:59)
[2018-08-07] MEDS: Folic Acid 1 MG Tablet PO (08:00)
[2018-08-07] MEDS: Iron Polysaccharide Complex 150 MG CAPSULE PO ×2 (08:00→17:26)
[2018-08-07 11:41] VITALS: PULSE 85; RESP 18
--- NOTE | 2018-08-07 13:39 | MDS.RN ---
Pain interview for adalid 08/09/18 completed.
[2018-08-07 15:21] VITALS: BP 139/65; PULSE 87; RESP 18; TEMP 36.4; O2SAT 95
[2018-08-07] MEDS: Senna/Docusate Sodium 1 Tablet 2 TABLET PO (17:26)
[2018-08-07] MEDS: Latanoprost 0.005% 1 Bottle 1 DRP EACH EYE (21:01)
[2018-08-07] MEDS: Atorvastatin Calcium 20 MG Tablet PO (21:02)
[2018-08-08] MEDS: Famotidine 20 MG Tablet PO (06:04)
[2018-08-08] MEDS: Senna/Docusate Sodium 1 Tablet 2 TABLET PO (06:04)
[2018-08-08] MEDS: Acetaminophen 500 MG Tablet 1000 MG PO ×3 (06:04→21:22)
[2018-08-08] MEDS: amLODIPine 5 MG Tablet PO (06:04)
[2018-08-08] MEDS: Calcium Carb/Vitamin D 1 TABLET Tablet PO (07:52)
[2018-08-08] MEDS: Cyanocobalamin 500 MCG Tablet PO (07:52)
[2018-08-08] MEDS: Folic Acid 1 MG Tablet PO (07:52)
[2018-08-08] MEDS: Multivitamins,Ther W-Minerals Tablet 1 TABLET PO (07:52)
[2018-08-08] MEDS: Iron Polysaccharide Complex 150 MG CAPSULE PO ×2 (07:52→18:21)
[2018-08-08] MEDS: Multivitamin (Healthy Eyes) Capsule 1 CAP PO (07:53)
[2018-08-08] MEDS: Aspirin 81 MG TAB.CHEW PO ×2 (07:53→18:21)
[2018-08-08 16:00] VITALS: BP 116/65; PULSE 87; RESP 20; TEMP 36.7; O2SAT 99
--- NOTE | 2018-08-08 17:17 | CASEMGMT ---
Social work: Brief interview for mental status (BIMS) and PHQ-9 assessment completed this day. ANNEMARIE Harper
[2018-08-08] MEDS: Atorvastatin Calcium 20 MG Tablet PO (21:22)
[2018-08-08] MEDS: Latanoprost 0.005% 1 Bottle 1 DRP EACH EYE (21:23)
[2018-08-09] MEDS: amLODIPine 5 MG Tablet PO (06:28)
[2018-08-09] MEDS: Famotidine 20 MG Tablet PO (06:28)
[2018-08-09] MEDS: Acetaminophen 500 MG Tablet 1000 MG PO ×3 (06:28→21:55)
[2018-08-09] MEDS: Folic Acid 1 MG Tablet PO (08:35)
[2018-08-09] MEDS: Multivitamin (Healthy Eyes) Capsule 1 CAP PO (08:35)
[2018-08-09] MEDS: Aspirin 81 MG TAB.CHEW PO ×2 (08:35→17:25)
[2018-08-09] MEDS: Iron Polysaccharide Complex 150 MG CAPSULE PO ×2 (08:35→17:24)
[2018-08-09] MEDS: Cyanocobalamin 500 MCG Tablet PO (08:36)
[2018-08-09] MEDS: Calcium Carb/Vitamin D 1 TABLET Tablet PO (08:36)
[2018-08-09] MEDS: Multivitamins,Ther W-Minerals Tablet 1 TABLET PO (08:36)
[2018-08-09 16:00] VITALS: BP 113/43; PULSE 75; RESP 16; TEMP 36.3; O2SAT 97
[2018-08-09] MEDS: Atorvastatin Calcium 20 MG Tablet PO (21:55)
[2018-08-09] MEDS: Latanoprost 0.005% 1 Bottle 1 DRP EACH EYE (21:56)
[2018-08-09 22:00] VITALS: PULSE 76; RESP 18; O2SAT 98
[2018-08-10 05:44] LABS: Absolute Lymphocyte Count 1.55 X10^3/ul (0.83-4.51); Absolute Neutrophil Count 2.8 X10^3/uL (2.0-7.7); Basophil# 0.03 X10^3/uL; Basophil% 0.6 % (0-1); Eosinophil# 0.18 X10^3/uL; Eosinophils% 3.5 % (0-5); Hematocrit 24.5 % (37-47); Hemoglobin 8.2 g/dl (12.0-15.0); Lymphocyte # 1.55 X10^3/ul (4.0); Mean Corp Hgb Conc 33.5 g/gl (32-36); Mean Corpuscular Hgb 29.4 pg (27.0-32.0); Mean Corpuscular Volume 87.8 fL (81-99); Mean Platelet Vol. 8.6 fl (6.2-12.0); Monocyte# 0.63 X10^3/uL; Monocyte% 12.2 % (0-10); Neutrophil # 2.78 X10^3/uL (2.7-7.7); Neutrophil % 53.7 % (47-70); Platelet Count 413 K/mm3 (150-450); RBC Distribution Width CV 15.2 % (11.6-14.6); RBC Distribution Width SD 48.6 fl (35.1-43.9); Red Blood Count 2.79 M/mm3 (4.2-5.4); White Blood Count 5.2 K/mm3 (4.4-11.0)
[2018-08-10 06:07] LABS: Anion Gap 7 (5-15); BUN 13 mg/dL (7-18); Calcium,Total 8.8 mg/dL (8.5-10.1); Chloride 104 mmol/L (98-107); Creatinine, Serum 0.72 mg/dL (0.55-1.02); EST Glomerular Filtration Rate 82 mL/min (>60); Est Glom Filt Rate - Afr Amer 99 mL/min (>60); Estimated Creatinine Clearance 47.35 ml/min; Glucose 92 mg/dL (74-106); Potassium 4.4 mmol/L (3.5-5.1); Sodium Level 138 mmol/L (136-145)
[2018-08-10 06:19] LABS: POSITIVE COUNT NO; POSITIVE DIFFERENTIAL NO; POSITIVE MORPHOLOGY NO
[2018-08-10] MEDS: Acetaminophen 500 MG Tablet 1000 MG PO ×3 (06:42→22:03)
[2018-08-10] MEDS: Famotidine 20 MG Tablet PO (06:42)
[2018-08-10] MEDS: amLODIPine 5 MG Tablet PO (06:42)
[2018-08-10] MEDS: Iron Polysaccharide Complex 150 MG CAPSULE PO ×2 (09:22→16:56)
[2018-08-10] MEDS: Multivitamin (Healthy Eyes) Capsule 1 CAP PO (09:22)
[2018-08-10] MEDS: Calcium Carb/Vitamin D 1 TABLET Tablet PO (09:22)
[2018-08-10] MEDS: Folic Acid 1 MG Tablet PO (09:22)
[2018-08-10] MEDS: Multivitamins,Ther W-Minerals Tablet 1 TABLET PO (09:22)
[2018-08-10] MEDS: Aspirin 81 MG TAB.CHEW PO ×2 (09:22→16:56)
[2018-08-10] MEDS: Cyanocobalamin 500 MCG Tablet PO (09:22)
[2018-08-10 16:00] VITALS: BP 128/57; PULSE 86; RESP 16; TEMP 36.9; O2SAT 100
[2018-08-10] MEDS: Atorvastatin Calcium 20 MG Tablet PO (22:02)
[2018-08-10] MEDS: Latanoprost 0.005% 1 Bottle 1 DRP EACH EYE (22:03)
[2018-08-11] MEDS: Famotidine 20 MG Tablet PO (06:44)
[2018-08-11] MEDS: amLODIPine 5 MG Tablet PO (06:44)
[2018-08-11] MEDS: Acetaminophen 500 MG Tablet 1000 MG PO ×3 (06:44→21:57)
[2018-08-11] MEDS: Calcium Carb/Vitamin D 1 TABLET Tablet PO (08:17)
[2018-08-11] MEDS: Cyanocobalamin 500 MCG Tablet PO (08:17)
[2018-08-11] MEDS: Folic Acid 1 MG Tablet PO (08:17)
[2018-08-11] MEDS: Aspirin 81 MG TAB.CHEW PO ×2 (08:18→17:13)
[2018-08-11] MEDS: Iron Polysaccharide Complex 150 MG CAPSULE PO ×2 (08:18→17:13)
[2018-08-11] MEDS: Multivitamins,Ther W-Minerals Tablet 1 TABLET PO (08:18)
[2018-08-11] MEDS: Multivitamin (Healthy Eyes) Capsule 1 CAP PO (08:18)
--- NOTE | 2018-08-11 14:35 | CASEMGMT ---
Social Work Therapist notified SW that pt is requesting to return home on 08/14. SW met with pt in room. Pt states she feels like she is ready for d/c and will be returning home alone. Therapy is recommending outpt PT and pt is agreeable and would like to use [facility]. Pt has needed DME and states her sons and friends will provide transportation to appointments. Phone call to [facility] and referral made. They will contact pt once home to set up first outpt PT appointment. No other d/c needs at this time. Plan: D/C 08/14/18 home alone with outpt PT at [facility]
[2018-08-11 16:00] VITALS: BP 134/69; PULSE 82; RESP 18; TEMP 36.3; O2SAT 98
[2018-08-11] MEDS: Latanoprost 0.005% 1 Bottle 1 DRP EACH EYE (21:56)
[2018-08-11] MEDS: Atorvastatin Calcium 20 MG Tablet PO (21:57)
[2018-08-12] MEDS: Famotidine 20 MG Tablet PO (06:28)
[2018-08-12] MEDS: amLODIPine 5 MG Tablet PO (06:28)
[2018-08-12] MEDS: Acetaminophen 500 MG Tablet 1000 MG PO ×3 (06:28→21:16)
[2018-08-12] MEDS: Aspirin 81 MG TAB.CHEW PO ×2 (07:48→16:09)
[2018-08-12] MEDS: Calcium Carb/Vitamin D 1 TABLET Tablet PO (07:48)
[2018-08-12] MEDS: Iron Polysaccharide Complex 150 MG CAPSULE PO ×2 (07:48→16:09)
[2018-08-12] MEDS: Cyanocobalamin 500 MCG Tablet PO (07:48)
[2018-08-12] MEDS: Folic Acid 1 MG Tablet PO (07:48)
[2018-08-12] MEDS: Multivitamin (Healthy Eyes) Capsule 1 CAP PO (07:48)
[2018-08-12] MEDS: Multivitamins,Ther W-Minerals Tablet 1 TABLET PO (07:48)
--- NOTE | 2018-08-12 11:48 | DCINST_ITS ---
- Discharge Diagnoses Current Active Problems: Current Active and Chronic Problems Right knee pain (Acute) Fracture of right tibial plateau (Acute) Hyperlipidemia (Chronic) Vitamin D deficiency (Chronic) Hypertension (Chronic) Glaucoma (Chronic) Osteoarthritis (Chronic) Postoperative anemia (Acute) Reason(s) for Visit for Discharge Instructions: right tibail plateau fracture You will use the following diet at home:: No restrictions, Regular Your food should be the consistency of: Regular Your liquids should be the consistency of: Regular/Thin Discharge Activity: Return to Normal Activity, May Drive, May Shower, May Take a Tub Bath Weight Bearing Status: Weight bearing as tolerated Call your doctor if your incision/area has: Continuous Slow Oozing, Sudden Incr eased Bleeding, Increased Pain/ Swelling, Increased Redness, Swelling at the incision site Call your doctor if you observe: Fever of 101 or Higher Allergies/Adverse Reactions: Allergies Sulfa (Sulfonamide Antibiotics) Allergy (Verified 07/11/18 14:29) Rash sulfamethoxazole [From Bactrim] Allergy (Verified 07/11/18 14:29) Rash trimethoprim [From Bactrim] Allergy (Verified 07/11/18 14:29) Rash Medications to take at Discharge Amlodipine [Norvasc] 5 mg PO DAILY 07/11/18 Amoxicillin 500 mg PO PRN PRN 07/11/18 Calcium Carbonate/Vitamin D3 [Calcium 600 + Vit D Tablet] 1 each PO DAILY 07/11/18 Ergocalciferol [Vitamin D] 1,000 unit PO DAILY 07/11/18 Latanoprost 0.005% [Xalatan Opthalmic] 1 drop EACH EYE QHS 07/11/18 Multivit-Min/FA/Lycopen/Lutein [Centrum Silver Tablet] 1 each PO DAILY 07/11/18 Rosuvastatin Calcium [Crestor] 10 mg PO DAILY 07/11/18 Vit C/Vit E AC/Lut/Copper/Zinc [Preservision Lutein Softgel] 1 each PO DAILY 07/11/18 hydroCHLOROthiazide [Hydrochlorothiazide] 12.5 mg PO DAILY 07/11/18 Acetaminophen [Tylenol] 1,000 mg PO Q8 07/26/18 Cyanocobalamin [Vitamin B12] 500 mcg PO DAILY@0800 07/26/18 Famotidine 20 mg PO DAILY 07/26/18 Ferrous Sulfate 325 mg PO BID 07/26/18 Folic Acid 1 mg PO DAILY 07/26/18 Aspirin [Aspirin, Baby] 81 mg PO DAILY #30 tab.chew 08/12/18 The following prescriptions were given: Aspirin [Aspirin, Baby] 81 mg PO DAILY #30 tab.chew Primary Care Physician: Anselmo Castle MD [Primary Care Provider] - Test Results: Test results from this visit will be discussed in further detail at your follow- up appointment, if applicable. Please Follow Up With: Jer Castle MD When: 2 weeks Please Follow Up With: [facility], outpatient Physical therapy When: They will call you to make an appointment Proposed Discharge Date: 08/14/18
--- NOTE | 2018-08-12 11:53 | DS.PCM_ITS ---
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 Patient Problems: Active and Suspected Problems Right knee pain (Acute) Fracture of right tibial plateau (Acute) Postoperative anemia (Acute) - Physical Exam General: Alert, Oriented x3, Cooperative, No apparent distress HEENT: Atraumatic Oral: Moist Mucosa Neck: Supple Lungs: Clear to auscultation Cardiovascular: Regular rate Abdomen: Obese Extremities: No clubbing Skin: No rashes Musculoskeletal: No Muscle Wasting Neurological: Cranial nerves II-XII grossly intact Psych/Mental Status: Normal Affect, Appropriate Vital Signs Temp Pulse Resp BP Pulse Ox 97.4 F L 82 18 134/69 H 98 08/11/18 16:00 08/11/18 16:00 08/11/18 16:00 08/11/18 16:00 08/11/18 16:00 Oxygen Delivery Method Room Air Weight: 70.364 kg Body Mass Index (BMI) 34.6 Intake and Output for Last 24 Hours 08/10/18 08/11/18 08/12/18 23:59 23:59 23:59 Intake Total 840 / 840 1200 / 1200 360 / 360 Balance 840 / 840 1200 / 1200 360 / 360 Discharge Activity: Return to Normal Activity, May Drive, May Shower, May Take a Tub Bath Weight Bearing Status: Weight bearing as tolerated Call your doctor if your incision/area has: Continuous Slow Oozing, Sudden Increased Bleeding, Increased Pain/ Swelling, Increased Redness, Swelling at the incision site Call your doctor if you observe: Fever of 101 or Higher Home Medications: Medications to take at Discharge Amlodipine [Norvasc] 5 mg PO DAILY 07/11/18 Amoxicillin 500 mg PO PRN PRN 07/11/18 Calcium Carbonate/Vitamin D3 [Calcium 600 + Vit D Tablet] 1 each PO DAILY 07/11/18 Ergocalciferol [Vitamin D] 1,000 unit PO DAILY 07/11/18 Latanoprost 0.005% [Xalatan Opthalmic] 1 drop EACH EYE QHS 07/11/18 Multivit-Min/FA/Lycopen/Lutein [Centrum Silver Tablet] 1 each PO DAILY 07/11/18 Rosuvastatin Calcium [Crestor] 10 mg PO DAILY 07/11/18 Vit C/Vit E AC/Lut/Copper/Zinc [Preservision Lutein Softgel] 1 each PO DAILY 07/11/18 hydroCHLOROthiazide [Hydrochlorothiazide] 12.5 mg PO DAILY 07/11/18 Acetaminophen [Tylenol] 1,000 mg PO Q8 07/26/18 Cyanocobalamin [Vitamin B12] 500 mcg PO DAILY@0800 07/26/18 Famotidine 20 mg PO DAILY 07/26/18 Ferrous Sulfate 325 mg PO BID 07/26/18 Folic Acid 1 mg PO DAILY 07/26/18 Aspirin [Aspirin, Baby] 81 mg PO DAILY #30 tab.chew 08/12/18 Following Prescrptions Were Given to Patient: Aspirin [Aspirin, Baby] 81 mg PO DAILY #30 tab.chew Primary Care Physician: Anselmo Castle MD [Primary Care Provider] - Please Follow Up With: Jer Castle MD When: 2 weeks Please Follow Up With: [facility], outpatient Physical therapy When: They will call you to make an appointment Rehab Course The patient is a 82 year old F admitted on account of pathological peripr osthetic fracture of the right tibial plateau secondary to avascular necrosis. Patient was seen by Dr. Castle and underwent redo Total knee arthroplasty. Admitted to TCU for rehabilitation for weight bearing and muscle strengthening. Patient has done and progressed well and is stable for discharge home. She will follow up with orthopedics as scheduled. [] Meaningful Use Info Meaningful Use Diagnoses (Choose all that apply): None applicable
[2018-08-12 15:33] VITALS: BP 121/70; PULSE 86; RESP 18; TEMP 36.6; O2SAT 98
[2018-08-12] MEDS: Latanoprost 0.005% 1 Bottle 1 DRP EACH EYE (21:16)
[2018-08-12] MEDS: Atorvastatin Calcium 20 MG Tablet PO (21:17)
[2018-08-13] MEDS: Acetaminophen 500 MG Tablet 1000 MG PO ×3 (06:42→21:28)
[2018-08-13] MEDS: amLODIPine 5 MG Tablet PO (06:42)
[2018-08-13] MEDS: Famotidine 20 MG Tablet PO (06:43)
[2018-08-13] MEDS: Aspirin 81 MG TAB.CHEW PO ×2 (08:59→16:45)
[2018-08-13] MEDS: Iron Polysaccharide Complex 150 MG CAPSULE PO ×2 (08:59→16:45)
[2018-08-13] MEDS: Multivitamins,Ther W-Minerals Tablet 1 TABLET PO (08:59)
[2018-08-13] MEDS: Multivitamin (Healthy Eyes) Capsule 1 CAP PO (08:59)
[2018-08-13] MEDS: Folic Acid 1 MG Tablet PO (08:59)
[2018-08-13] MEDS: Cyanocobalamin 500 MCG Tablet PO (09:00)
[2018-08-13] MEDS: Calcium Carb/Vitamin D 1 TABLET Tablet PO (09:00)
[2018-08-13 15:29] VITALS: BP 145/60; PULSE 83; RESP 16; TEMP 37.1; O2SAT 97
[2018-08-13] MEDS: Atorvastatin Calcium 20 MG Tablet PO (21:28)
[2018-08-13] MEDS: Latanoprost 0.005% 1 Bottle 1 DRP EACH EYE (21:29)
[2018-08-14] MEDS: amLODIPine 5 MG Tablet PO (06:11)
[2018-08-14] MEDS: Acetaminophen 500 MG Tablet 1000 MG PO (06:11)
[2018-08-14] MEDS: Famotidine 20 MG Tablet PO (06:11)
[2018-08-14] MEDS: Iron Polysaccharide Complex 150 MG CAPSULE PO (08:30)
[2018-08-14] MEDS: Aspirin 81 MG TAB.CHEW PO (08:30)
[2018-08-14] MEDS: Multivitamin (Healthy Eyes) Capsule 1 CAP PO (08:30)
[2018-08-14] MEDS: Folic Acid 1 MG Tablet PO (08:30)
[2018-08-14] MEDS: Multivitamins,Ther W-Minerals Tablet 1 TABLET PO (08:30)
[2018-08-14] MEDS: Cyanocobalamin 500 MCG Tablet PO (08:30)
[2018-08-14] MEDS: Calcium Carb/Vitamin D 1 TABLET Tablet PO (08:30)
[2018-08-14 12:53] VITALS: BP 147/61; PULSE 90; RESP 18; TEMP 36.9; O2SAT 96
[2018-08-14 12:57] VITALS: BP 155/81; PULSE 97; RESP 16; TEMP 37.1; O2SAT 97
--- NOTE | 2018-08-22 08:40 | MDS.RN ---
Information for the mds was obtained from review of the clinical record, interview of resident, staff, and direct observation of resident's care.
== END 2018-08-14 13:05 | disposition home or self-care (01) | DRG 561 ==
PROVIDERS: Admitting Provider Family Medicine Geriatric Medicine; Family Provider Family Medicine; PCP Family Medicine; Referring Provider Family Medicine Geriatric Medicine; Visit Provider Family Medicine Geriatric Medicine
DX: S82.141D Displaced bicondylar fracture of right tibia, subsequent encounter for closed fracture with routine healing (principal); X58.XXXD Exposure to other specified factors, subsequent encounter; Z96.651 Presence of right artificial knee joint; D50.9 Iron deficiency anemia, unspecified; H35.30 Unspecified macular degeneration; I10 Essential (primary) hypertension; K21.9 Gastro-esophageal reflux disease without esophagitis; E78.5 Hyperlipidemia, unspecified; E55.9 Vitamin D deficiency, unspecified; H40.9 Unspecified glaucoma; M19.90 Unspecified osteoarthritis, unspecified site; D64.9 Anemia, unspecified
CPT/HCPCS: 36415; 80048; 85025; 93970; 93971; 97110; 97116; 97161; 97165; 97530; 97535; 97802

== ENCOUNTER 2018-11-17 12:46 | Emergency (ER) | payer MEDICARE, OTHER, SELFPAY ==
[2018-11-17 12:48] VITALS: BP 151/80; PULSE 102; RESP 17; TEMP 36.7; O2SAT 96; BMI 30.4
[2018-11-17 14:47] VITALS: BP 153/76; PULSE 88; RESP 16; TEMP 36.5
--- NOTE | 2018-11-17 15:01 | VDLE_ITS ---
Reason For Study: Swelling Procedure LEFT Exam performed in department. GSV is normal. A preliminary report was called and/or faxed CFV is compressible, spontaneous, phasic, to Surendra. competent, and demonstrates normal augmentation. FV is compressible, spontaneous, phasic, competent and demonstrates normal augmentation. POP V is compressible, spontaneous, phasic, competent and demonstrates normal augmentation. T/P Trunk is compressible. PTV is compressible. LT PerV is compressible. Nonvascularized structure noted in the popliteal space measuring approximently 1.53 x 3.20 x 5.36 cm. Interpretation Summary There is no evidence of left lower extremity deep vein thrombosis. Left great saphenous vein appears patent and compressible segmentally. Left popliteal fossa 5.36 x 1.53 x 3.2 cm structure without vascular flow suspicious for hemorrhage into a Matta's cyst. Clinical correlation would be appropriate. Ordering Physician: Sekou Agosto Referring Physician: Anselmo Castle Performed By: Hollie Farias RVT
--- NOTE | 2018-11-17 15:25 | ED.VISSUMM ---
- ER Visit Summary Date of Service: 11/17/18 Chief Complaint: Left leg swelling History of Present Illness: The patient is a 83 F who is postop day 6 from a left total knee arthroplasty at [facility] by Dr. Castle. She states that she had been doing physical therapy to be going well. Yesterday she noticed increased swelling of the leg and knee. She states that it kept her up most of the night due to discomfort. Her home physical therapist advised her to come to the emergency room today. Nobody spoke with Dr. Castle or his associates. She denies any fevers. She states there is more bruising than what there had been. Physical Examination: Afebrile vital signs stable Gen: Well-nourished well-developed Head: Normocephalic atraumatic Eyes: Perrl EOMI ENT: TMs clear no rhinorrhea moist mucous membranes Neck: Supple no lymphadenopathy no JVD nontender CVS: Regular rate rhythm no murmurs normal S1-S2 Respiratory: No distress clear to auscultation bilaterally chest nontender Abdomen: Soft nontender nondistended normal bowel sounds no masses Back: Nontender Extremity: There is swelling of the left leg and knee. The surgical incision appears to be healing. There is no erythema. There is a small amount of serosanguineous drainage in the inferior aspect of the incision. There is purple ecchymosis noted especially medially around the knee. Skin: Normal color no rash Neuro: alert orientated ?3 CN II-XII intact normal strength sensation reflexes gait cerebellar Psych: Normal affect normal mood Test Results: X-rays of the knee negative. Duplex ultrasound does not demonstrate any DVT. There is a nonvascular structure noted in the popliteal space measuring 1.53 x 3.2 x 5.36 cm. Unknown etiology at this time. White count is normal. Sed rate 34 and CRP is 105. Emergency Department Course and Treatment: I discussed the case with her orthopedic surgeon Dr. Castle. He will come to the emergency department and evaluate the patient. Patient was seen by Dr. Castle and she will be discharged. Continue postoperative care Impression: 1. Postoperative wound check 2. Left leg swelling This note was generated with [employer] dictation software. It may contain incorrect words, spelling, and punctuation that were not noted in review of the chart prior to signing ED Disposition - Plan for ED Patient: Disposition: Home or Assisted Living Instructions: POST OP WOUND CHECK, General Referrals: Jer Castle MD [STAFF PHYSICIAN] - Keep Anselmo appointment
[2018-11-17 15:38] LABS: Erythrocyte Sedimentation Rate 34 mm/hr (0-30)
[2018-11-17 15:40] LABS: Absolute Lymphocyte Count 1.23 X10^3/uL (0.83-4.51); Absolute Neutrophil Count 5.3 X10^3/uL (2.0-7.7); Basophil# 0.03 X10^3/uL; Basophil% 0.4 % (0-1); Eosinophil# 0.09 X10^3/uL; Eosinophils% 1.2 % (0-5); Hematocrit 31.1 % (37-47); Hemoglobin 10.2 g/dL (12.0-15.0); Lymphocyte # 1.23 X10^3/ul (4.0); Lymphocyte % 16.6 % (19-41); Mean Corp Hgb Conc 32.8 g/dL (32-36); Mean Corpuscular Hgb 28.7 pg (27.0-32.0); Mean Corpuscular Volume 87.6 fL (81-99); Mean Platelet Vol. 9.9 fl (6.2-12.0); Monocyte# 0.74 X10^3/uL; NRBC Flagged by Analyzer 0 % (0-5); Neutrophil # 5.31 X10^3/uL (2.7-7.7); Neutrophil % 71.4 % (47-70); Platelet Count 282 K/mm3 (150-450); RBC Distribution Width CV 14.3 % (11.6-14.6); RBC Distribution Width SD 46.1 fl (35.1-43.9); Red Blood Count 3.55 M/mm3 (4.2-5.4); White Blood Count 7.4 K/mm3 (4.4-11.0)
--- NOTE | 2018-11-17 15:40 | RAD_ITS ---
STUDY: X-RAY - LEFT KNEE REASON FOR EXAM: Female, 83 years old. Swelling. Surgery 6 days prior. TECHNIQUE: 2 view(s) of the knee. COMPARISON: None FINDINGS: The patient is status post left knee arthroplasty with intact hardware in satisfactory alignment. There is no evidence of fracture or dislocation. There is diffuse soft tissue swelling. There are no radiodense foreign bodies. RAD/Knee 1 or 2 Views IMPRESSION: Status post left knee arthroplasty with intact hardware in satisfactory alignment. No fracture or dislocation. Diffuse soft tissue swelling. Electronically Signed: Jer Brennan, at 15:51 EDT Tel , Service support ,
[2018-11-17 15:52] LABS: ALB/GLOB Ratio 0.8 RATIO (0.9-2.4); AST(SGOT) 13 U/L (15-37); Alanine Aminotransfer ALT/SGPT 19 U/L (13-56); Albumin, Serum 3.3 g/dL (3.2-5.0); Alkaline Phosphatase 122 U/L (45-117); Anion Gap 5 (5-15); BUN 14 mg/dL (7-18); BUN/Creat Ratio 19.4 RATIO (10-20); Calcium,Total 9.2 mg/dL (8.5-10.1); Chloride 102 mmol/L (98-107); Creatinine, Serum 0.72 mg/dL (0.55-1.02); EST Glomerular Filtration Rate 82 mL/min (>60); Est Glom Filt Rate - Afr Amer 99 mL/min (>60); Estimated Creatinine Clearance 45.28 ml/min; Globulin 3.9 g/dL (2.2-4.2); Glucose 102 mg/dL (74-106); Potassium 3.7 mmol/L (3.5-5.1); Protein, Total 7.2 g/dL (6.4-8.2); Sodium Level 135 mmol/L (136-145)
[2018-11-17 17:12] VITALS: BP 145/67; PULSE 88; RESP 14
--- NOTE | 2018-11-17 17:46 | PCM.CONS.GEN ---
Reason for Consult Date of Consultation: 11/17/18 Reason for Consultation: Left knee effusion. Requested by History of Present Illness: The patient is a 83 year old F 6 days status post left total knee replacement presented to the emergency department after an effusion. Physical therapy presented to her house for home health care this morning and sent her to the emergency department for increased swelling of the knee. Patient notes she has been walking around her house using a walker. She reports minimal pain at this time. Pain is been well controlled with postoperative pain regimen. There is no erythema. No fevers chills or night sweats. Past Medical History Past Medical History (Chronic Problems): Chronic Problems Hyperlipidemia (Chronic) Vitamin D deficiency (Chronic) Hypertension (Chronic) Glaucoma (Chronic) Osteoarthritis (Chronic) Allergies Sulfa (Sulfonamide Antibiotics) Allergy (Verified 11/17/18 14:48) Rash sulfamethoxazole [From Bactrim] Allergy (Verified 11/17/18 14:48) Rash trimethoprim [From Bactrim] Allergy (Verified 11/17/18 14:48) Rash Home Medications: Ambulatory Orders Medication Instructions Recorded Amlodipine [Norvasc] 5 mg PO DAILY 07/11/18 Calcium Carbonate/Vitamin D3 1 each PO DAILY 07/11/18 [Calcium 600 + Vit D Tablet] Ergocalciferol [Vitamin D] 1,000 unit PO DAILY 07/11/18 Latanoprost 0.005% [Xalatan 1 drop EACH EYE QHS 07/11/18 Opthalmic] Multivit-Min/FA/Lycopen/Lutein 1 each PO DAILY 07/11/18 [Centrum Silver Tablet] Rosuvastatin Calcium [Crestor] 10 mg PO DAILY 07/11/18 Vit C/Vit E AC/Lut/Copper/Zinc 1 each PO DAILY 07/11/18 [Preservision Lutein Softgel] Acetaminophen [Tylenol] 1,000 mg PO Q8 07/26/18 Famotidine 20 mg PO DAILY 07/26/18 Ferrous Sulfate 325 mg PO BID 07/26/18 Folic Acid 1 mg PO DAILY 07/26/18 Aspirin [Aspirin, Baby] 81 mg PO DAILY #30 tab.chew 08/12/18 Meloxicam 7.5 mg PO DAILY 11/17/18 Oxycodone HCl 1 - 2 tab PO Q6H PRN 11/17/18 Surgical History: cataract - OD., total knee arthroplasty - Right partial., - - Right foot surgery. 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 Smoking Status: Never smoker - *Family History Maternal History Items: No pertinent history Paternal History Items: No pertinent history Review of Systems Constitutional: Denies: Chills, Fever, Weight Change HEENT: Denies: Head Aches, Sinus Congestion, Sinus Drainage Cardiovascular: Denies: Chest Pain, Palpitations Respiratory: Denies: Cough, Shortness of breath at rest, Sputum production Gastrointestinal: Denies: Abdominal Pain, Nausea, Vomiting Genitourinary: Denies: Dysuria Musculoskeletal: Reports: Joint Pain - Left knee effusion, Joint Tenderness Skin: Denies: Rash, Wounds Neurological: Denies: Numbness, Tingling, Focal weakness Psychiatric: Denies: Anxiety, Depression, Homicidal Ideations, Suicidal Ideations Hematologic/ Lymphatic: Denies: Easy Bruising, Easy Bleeding Objective: Left knee x-rays show stable well aligned cemented stemmed TS total knee replacement - Physical Exam General: Alert, Oriented x3, Cooperative Extremities: - - Left lower extremity: Incision clean dry and intact, one small spot of serous fluid, no active drainage no appreciable erythema. Patient does have ecchymosis over the medial thigh as well as laterally. Motor is intact dorsiflexion, EHL and plantar flexion. Sensation is intact to light touch saphenous, waldo,l superficial peroneal, deep peroneal and tibial distributions. Calves are soft and supple. Vital Signs Temp Pulse Resp BP Pulse Ox 97.7 F L 88 14 145/67 H 96 11/17/18 14:47 11/17/18 17:12 11/17/18 17:12 11/17/18 17:12 11/17/18 12:48 Oxygen Delivery Method Room Air Weight: 151 lb Body Mass Index (BMI) 30.4 Laboratory Tests Past 24 Hrs 11/17/18 11/17/18 15:10 15:10 WBC 7.4 RBC 3.55 L Hgb 10.2 L Hct 31.1 L MCV 87.6 MCH 28.7 MCHC 32.8 RDW Std Deviation 46.1 H RDW Coeff of Dioni 14.3 Plt Count 282 MPV 9.9 Immature Gran % (Auto) 0.400 Neut % (Auto) 71.4 H Lymph % (Auto) 16.6 L Norman % (Auto) 10.0 Eos % (Auto) 1.2 Baso % (Auto) 0.4 Absolute Neuts (auto) 5.3 Absolute Lymphs (auto) 1.23 Absolute Nucleated RBC 0.00 Nucleated RBC % 0 ESR 34 H Sodium 135 L Potassium 3.7 Chloride 102 Carbon Dioxide 28.0 Anion Gap 5 BUN 14 Creatinine 0.72 Estim Creat Clear Calc 45.28 Est GFR (MDRD) Af Amer 99 Est GFR (MDRD) Non-Af 82 BUN/Creatinine Ratio 19.4 Glucose 102 Calcium 9.2 Total Bilirubin 0.50 AST 13 L ALT 19 Alkaline Phosphatase 122 H C-React Prot Ext Range 105.00 H Total Protein 7.2 Albumin 3.3 Globulin 3.9 Albumin/Globulin Ratio 0.8 L Assessment/Plan All Active Problems Right knee pain (Acute) Fracture of right tibial plateau (Acute) Postoperative anemia (Acute) Postop day 6 left total knee replacement. Patient has postop effusion. Patient CRP was 105 because of this I did recommend patient have knee aspiration. Otherwise minimal evidence for postop infection of the knee. The knee was prepped using Betadine first and then alcohol after carefully identifying the suprapatellar pouch area. After sterile prep sterile gloves were placed and a sterile 18-gauge needle was used to aspirate the knee we were able to obtain about 10 cc of serosanguineous fluid. Fluid was placed in red and purple top tubes. At this time I explained to the patient that based on my physical examination and initial assessment of the fluid I had minimal concerns for infection. Patient will be discharged home to continue with physical therapy. Most likely she has a postoperative effusion secondary to surgical intervention. We will call the patient from the office with results. She will follow-up in 1 week at her scheduled two-week postoperative visit. [facility] Office:
[2018-11-17 17:51] LABS: Pathologist Comment/Body Fluid May follow
[2018-11-17 18:17] LABS: Body Fluid Mononuclear WBC # 0.378 10^3/uL; Body Fluid Mononuclear WBC % 18.5 %; Body Fluid Polynuclear WBC # 1.664 10^3/uL; Body Fluid Polynuclear WBC % 81.5 %; Body Fluid Total Cells Counted 2.057 10^3/ul (0.000-0.000); Red Cell Count/Body Fluid 0.067 10^6/ul; White Blood Count/Body Fluid 2.042 10^3/uL
[2018-11-17 18:26] LABS: Auto B Fluid Analyzer BKGD Ct COUNTS W/IN LIMITS (W/IN LIMITS)
[2018-11-17 18:28] LABS: Appearance/Body Fluid SL CLDY; Color/Body Fluid RED; Source- Body Fluid OTHER
[2018-11-17 19:38] LABS: Lymphocytes 7 %; Monocytes 15 %; Neutrophil (Segs) 78 %; Source- Body Fluid SYNOVIAL
[2018-11-17 19:39] LABS: Body Fluid QC Type(s) BF2Q,BF3Q
--- NOTE | 2018-11-17 19:44 | ED.RN ---
INITIAL SYNOVIAL FLUID REPORT CALLED TO DR SALMON. NO FURTHER ORDERS.
[2018-11-18 11:43] LABS: Pathologist Review Reviewed
== END 2018-11-17 18:20 | disposition home or self-care (01) ==
PROVIDERS: Specialist; Emergency Provider Emergency Medicine; Family Provider Family Medicine; PCP Family Medicine
DX: M25.462 Effusion, left knee (principal); I10 Essential (primary) hypertension; E78.5 Hyperlipidemia, unspecified; H40.9 Unspecified glaucoma; E55.9 Vitamin D deficiency, unspecified; M19.90 Unspecified osteoarthritis, unspecified site; K21.9 Gastro-esophageal reflux disease without esophagitis; Z88.2 Allergy status to sulfonamides; Z88.1 Allergy status to other antibiotic agents; Z79.82 Long term (current) use of aspirin; Z79.899 Other long term (current) drug therapy; Z96.652 Presence of left artificial knee joint
CPT/HCPCS: 20610; 73560; 80053; 85025; 85652; 86140; 87070; 87075; 87205; 89050; 89060; 93971; 99283; A4216

== ENCOUNTER 2020-06-22 11:56 | Outpatient (RCR) | payer MEDICARE, SELFPAY | END 2020-06-22 23:59 | LOC: IMMUN 11:56 | PROVIDERS: PCP Family Medicine; Referring Provider Family Medicine; Visit Provider Family Medicine | DX: Z23 Encounter for immunization (principal) | CPT/HCPCS: 0011A; 0012A; 91301 ==

== ENCOUNTER 2020-12-26 19:01 | Emergency (ER) | payer MEDICARE, OTHER, SELFPAY ==
[2020-12-26 19:02] VITALS: BP 171/76; PULSE 93; RESP 16; TEMP 36.6; O2SAT 98; BMI 29.9
--- NOTE | 2020-12-26 20:48 | EX.ED.VIS.UR ---
HPI HPI - URI History of Present Illness Chief Complaint: Nosebleed Informant: patient and spouse/S.O. Onset/Context/Timing Onset: Weeks Context: Gradual Onset Timing: Intermittent Current Severity: Mild Maximum Severity: Mild Narrative Narrative: 85-year-old female previously on aspirin which has been stopped. She has had intermittent nosebleed for the last 2 weeks[address] Has seen ENT Dr. Ashok Love he is cauterized her nose twice. She saw him today and he cauterized it again today. Started bleeding this evening prior to arrival. Denies any other complaints. Is on no other blood thinners and currently again her aspirin has been stopped. Prior similar symptoms: Yes Recent Illness/Hospitalization: No ROS ROS ED ROS Narrative Denies recent illness. Review of Systems ROS Unobtainable: Denies due to encephalopathy Constitutional Constitutional ED: Denies chills or fever(s) Eyes Eyes: Denies change in vision ENT ENT ED: Denies ear pain or sore throat Cardiovascular Cardiovascular: Denies chest pain Respiratory/Chest Respiratory/Chest: Denies cough or dyspnea Gastrointestinal Gastrointestinal: Denies abdominal pain, diarrhea, nausea or vomiting Genitourinary Genitourinary ED: Denies dysuria Musculoskeletal Musculoskeletal: Denies myalgias Integumentary Denies rash Neurologic Neurologic: Denies headache(s) Psychiatric Psychiatric: Denies depression Endocrine Endocrinology: Denies polyuria Hematologic/Lymphatic Hematologic/Lymphatic: Denies easy bruising Allergic/Immunologic Allergic/Immunologic ED: Denies urticaria PFSH PFSH Home Medications amlodipine 5 mg PO DAILY 07/11/18 [History Last Taken 07/23/18 06:00] calcium carbonate-vitamin D3 [Calcium 600 + D(3)] 1 ea PO DAILY 07/11/18 [History Last Taken Unknown] ergocalciferol (vitamin D2) [Vitamin D2] 1,000 unit PO DAILY 07/11/18 [History Last Taken Unknown] latanoprost 1 drp EACH EYE QHS 07/11/18 [History Last Taken Unknown] xrqrwgdq-jlt-DW-lycopen-lutein [Centrum Silver] 1 ea PO DAILY 07/11/18 [History Last Taken Unknown] rosuvastatin 10 mg PO DAILY 07/11/18 [History Last Taken Unknown] vit C-vit M-dcluna-zgvq-lutein [PreserVision Lutein] 1 ea PO DAILY 07/11/18 [History Last Taken Unknown] acetaminophen 1,000 mg PO Q8 07/26/18 [History Last Taken Unknown] famotidine 20 mg PO DAILY 07/26/18 [History Last Taken Unknown] ferrous sulfate 325 mg PO BID 07/26/18 [History Last Taken Unknown] folic acid 1 mg PO DAILY 07/26/18 [History Last Taken Unknown] aspirin 81 mg PO DAILY #30 tab.chew 08/12/18 [Rx Last Taken Unknown] meloxicam 7.5 mg PO DAILY 11/17/18 [History Last Taken Unknown] oxycodone 1 - 2 tab PO Q6H PRN 11/17/18 [History Last Taken Unknown] cephalexin 500 mg PO BID 3 Days #6 cap 12/26/20 [Rx Last Taken Unknown] Allergy/AdvReac Type Severity Reaction Status Date / Time Sulfa (Sulfonamide Allergy Rash Verified 12/26/20 19:05 Antibiotics) sulfamethoxazole Allergy Rash Verified 12/26/20 19:05 [From Bactrim] trimethoprim [From Bactrim] Allergy Rash Verified 12/26/20 19:05 Social History Smoking Status: Never smoker EXAM Physical Exam Narrative Exam Narrative: 85-year-old female no acute distress. Vital signs stable afebrile. HEENT exam her right naris has been cauterized currently there is no active bleeding. There is no clots. There is dried blood. Left naris unremarkable. Posterior pharynx no bleeding. Moist weeks membranes. Otherwise exam unremarkable. Lungs are clear. Heart regular rhythm no murmur. Const Vital Signs: 12/26/20 19:02 Temperature 97.9 F Temperature Source Temporal Pulse Rate 93 Respiratory Rate 16 Blood Pressure 171/76 H Blood Pressure Mean 107 Pulse Ox 98 Oxygen Delivery Method Room Air Positive well nourished and well developed; Negative for obese, cachectic or contractures General Appearance ED: well developed and NAD; Negative for cachectic or contractures Nutritional Appearance: Negative for cachectic or obese HEENT Reports moist mucous membranes HEENT Narrative: Right naris cauterized. Dried blood. No active bleeding. Left nares unremarkable. Posterior pharynx without blood. normocephalic and atraumatic; Negative for scalp tenderness Face and Sinus: Negative for sinus tenderness, maxillary instability or facial tenderness Eyes PERRL and EOMs intact bilaterally Resp normal respiratory effort and clear to auscultation bilaterally Cardio S1 normal heart sound, S2 normal heart sound and no murmurs Rate: regular rate Rhythm: regular rhythm Back/Spine no CVA tenderness Extremity normal to inspection and full ROM General Extremety ED: Negative for cyanosis or tenderness General Extremity: Negative for cyanosis Neuro oriented x3 Sensorium / Orientation: alert, oriented to person, oriented to place and oriented to time; Negative for orientation impaired, lethargic or stuporous Motor Exam: strength 5/5 throughout Psych mental status grossly normal Skin Lesions: no lesions Rashes: no rashes MDM MDM MDM Narrative Medical decision making narrative: Patient with a recurrent right-sided nosebleed. Has been cauterized by her ear nose and throat doctor. She is currently on no blood thinners. Afrin-soaked cotton balls been placed in both naris. The right side of nose will be packed with a Merocel pack. Repeat exam at 940 patient doing well. Bleeding resolved. I placed a anterior Merocel nasal pack in the right naris coated with bacitracin. Patient tolerated well. She will be discharged home. Packing to be pulled in 3 days. Keflex twice a day until the packing is removed. Procedures Other Procedures Procedure(s): Right anterior Merocel nasal pack. Discharge Plan Triage Chief Complaint: Nosebleed ED Provider: Steve Justice Dx/Rx/DC Orders Clinical Impression: Acute anterior epistaxis Instructions: ED Epistaxis (Adult) Prescriptions: New cephalexin 500 mg capsule 500 mg PO BID 3 Days Qty: 6 RF: 0 No Action latanoprost 1 DROP bottle 1 drp Each Eye QHS RF: 0 amlodipine 5 MG tablet 5 mg PO DAILY RF: 0 ergocalciferol (vitamin D2) [Vitamin D2] 50,000 UNIT capsule 1,000 unit PO DAILY RF: 0 rosuvastatin 10 MG tablet 10 mg PO DAILY RF: 0 qzxigjkt-vey-TH-lycopen-lutein [Centrum Silver] 1 EACH tablet 1 ea PO DAILY RF: 0 vit C-vit A-kibesm-frwi-lutein [PreserVision Lutein] 1 EACH capsule 1 ea PO DAILY RF: 0 calcium carbonate-vitamin D3 [Calcium 600 + D(3)] 1 EACH tablet 1 ea PO DAILY RF: 0 acetaminophen 500 MG tablet 1,000 mg PO Q8 RF: 0 ferrous sulfate 325 MG tablet 325 mg PO BID RF: 0 folic acid 1 MG tablet 1 mg PO DAILY RF: 0 famotidine 20 MG tablet 20 mg PO DAILY RF: 0 aspirin 81 MG tablet,chewable 81 mg PO DAILY Qty: 30 RF: 2 meloxicam 15 MG tablet 7.5 mg PO DAILY RF: 0 oxycodone 5 MG tablet 1 - 2 tab PO Q6H PRN (Reason: Pain) RF: 0 Primary Care Provider: Anselmo Castle Referrals: Jeff Garcias MD [STAFF PHYSICIAN] - 3-5 Days Anselmo Castle MD [Primary Care Provider] - Activity Restrictions/Additional Instructions: Follow-up with your ENT in 3 days to have the packing removed. If rebleeds before that hold direct pressure for 20 to 30 minutes. If unable to get stopped return to the emergency department. Keflex which is an antibiotic twice a day until the packing is removed in 3 days to prevent a sinus infection. Continue to hold your aspirin. Disposition Disposition: Home, Self Care
[2020-12-26] MEDS: Oxymetazoline 0.05% 1 SPRAY SPRAY.BTL 2 SPRAY NASAL (21:53)
== END 2020-12-26 22:01 | disposition home or self-care (01) ==
PROVIDERS: Emergency Provider Emergency Medicine; PCP Family Medicine
DX: R04.0 Epistaxis (principal)
CPT/HCPCS: 30901; 99284

== ENCOUNTER 2021-07-26 14:51 | Outpatient (CLI) | payer MEDICARE, SELFPAY ==
--- NOTE | 2021-07-26 14:54 | CT_ITS ---
EXAM: CT ABDOMEN AND PELVIS WITH INTRAVENOUS CONTRAST CLINICAL INDICATION: Abdominal pain with cramping -- PO and IV contrast TECHNIQUE: Helically acquired images were obtained of the abdomen and pelvis with intravenous contrast. This CT exam was performed using one or more of the following dose reduction techniques: automated exposure control, adjustment of the mA and/or kV according to patient size, and/or use of iterative reconstruction technique. This report was created using [employer] report generation technology. CONTRAST: Oral and amp; IV Redi-CAT and amp; 100mL Isovue-300 COMPARISON: None. FINDINGS: LOWER THORAX: Coronary artery calcifications. Lung bases are clear. No cardiomegaly. No significant pericardial effusion. ABDOMEN: LIVER: Unremarkable. Homogeneous. No focal mass. GALLBLADDER AND BILE DUCTS: Gallstone measuring 11 mm in the gallbladder. No gallbladder distention or wall edema. No intra- or extrahepatic biliary ductal dilation. PANCREAS: Unremarkable. No focal cystic or solid mass. SPLEEN: Unremarkable. Normal size without focal cystic or solid mass. ADRENALS: Small right adrenal mass measuring 1 cm. Small left adrenal mass measuring 1.2 x 1.6 cm. KIDNEYS AND URETERS: Unremarkable. Normal renal size and position. No hydronephrosis. STOMACH AND BOWEL: Innumerable sigmoid diverticula without diverticulitis. No stomach or bowel distention. PELVIS: APPENDIX: Normal appendix. BLADDER: Unremarkable. REPRODUCTIVE: Atrophic uterus with scattered small calcified leiomyomas. ABDOMEN and PELVIS: INTRAPERITONEAL SPACE: Unremarkable. No ascites or other fluid collection. No free air. BONES/JOINTS: Unremarkable. No suspicious lytic or blastic abnormality. SOFT TISSUES: Unremarkable. No discrete abdominal or pelvic wall hernia. VASCULATURE: Unremarkable. Abdominal aorta is non-dilated. LYMPH NODES: Unremarkable. No enlarged lymph nodes. CT/Abdomen/Pelvis WITH Contrast IMPRESSION: 1. Cholelithiasis without signs of acute cholecystitis. 2. Innumerable sigmoid diverticula without diverticulitis. 3. Coronary artery disease. 4. Small right adrenal mass measuring 1 cm. Small left adrenal mass measuring 1.2 x 1.6 cm. 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 RECOMMENDATIONS: Small right adrenal mass measuring 1 cm. Small left adrenal mass measuring 1.2 x 1.6 cm. Compare with prior studies. If there is no history of malignancy consider a follow-up low dose, non-contrast adrenal CT or chemical-shift adrenal MRI in 12 months. If there is a history of malignancy recommend a low dose, non-emergent, non-contrast adrenal CT or chemical-shift adrenal MRI follow-up study. Electronically Signed: Royce Darnell MD at 2:29 EDT ,
[2021-07-26 15:26] LABS: CREATININE FINGERSTICK 0.8 mg/dL (0.55-1.02); EGFR FINGERSTICK > 60.0000 mL/min (>60)
== END 2021-07-26 23:59 | disposition home or self-care (01) ==
LOC: CT 14:53
PROVIDERS: PCP Family Medicine; Referring Provider Surgery; Visit Provider Surgery
DX: R10.9 Unspecified abdominal pain (principal); I10 Essential (primary) hypertension
CPT/HCPCS: 74177; Q9967

== ENCOUNTER 2021-08-02 13:17 | Day surgery (SDC) | payer MEDICARE, SELFPAY ==
--- NOTE | 2021-08-01 07:40 | HP.PCM_ITS ---
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 Is patient in pain?: Yes (abd pain and cramping) Allergies Sulfa (Sulfonamide Antibiotics) Allergy (Verified 12/26/20 19:05) Rash sulfamethoxazole [From Bactrim] Allergy (Verified 12/26/20 19:05) Rash trimethoprim [From Bactrim] Allergy (Verified 12/26/20 19:05) Rash Medications amlodipine 5 mg PO DAILY 07/11/18 [History Confirmed 07/18/21] ergocalciferol (vitamin D2) [Vitamin D2] 1,000 unit PO DAILY 07/11/18 [History Confirmed 07/18/21] latanoprost 1 drp EACH EYE QHS 07/11/18 [History Confirmed 07/18/21] jlioukoq-eeb-LD-lycopen-lutein [Centrum Silver] 1 ea PO DAILY 07/11/18 [History Confirmed 07/18/21] rosuvastatin 10 mg PO DAILY 07/11/18 [History Confirmed 07/18/21] vit C-vit Z-pasyez-rvvy-lutein [PreserVision Lutein] 1 ea PO DAILY 07/11/18 [History Confirmed 07/18/21] acetaminophen 1,000 mg PO Q8 07/26/18 [History Confirmed 07/18/21] PFSH Medical History (Updated 07/18/21 @ 15:[address] Alphonso Jimenez MD) Fracture of right tibial plateau Glaucoma Hyperlipidemia Hypertension Osteoarthritis Right knee pain Vitamin D deficiency Surgical History (Updated 07/18/21 @ 14:26 by Evie Mclean) Status post knee surgery Family History (Updated 07/18/21 @ 14:27 by Evie Mclean) Son Cancer testicular Sister Diabetes Hypertension Mother Hypertension Father Hypertension CAD (coronary artery disease) CVA (cerebral vascular accident) Social History (Updated 07/18/21 @ 14:27 by Evie Mclean) Smoking Status: Never smoker alcohol intake: never HPI HPI HPI: DESMOND OBRIEN, is a 85 F who presents to the office today for surgical consultation regarding possible hemorrhoid. The patient's history upon arrival however becomes significant more complex. She has been complaining of some intermittent rectal bleeding with blood on the tissue paper. But over the past couple weeks she has had new onset of abdominal cramping pain. She also has had increased burping. No weight loss. She was seen in Dr. Jamel Castle's office and was prescribed Proctofoam for suspected hemorrhoids. At that time however she was not having the abdominal cramping and burping. She denies weight loss. An additional new concern to her is leg swelling. Now she does admit that she has had chronic right lower extremity swelling and she is prescribed diuretic for as needed use. She states that she thinks her lower extremity swelling has increased recently. In the same line however she admits that the last 2 days she is not taking any diuretic. She is unsure as to whether she has had more salt in her diet. She states that when she had compression fractures in 2013 in 2016 she had some bowel dysfunction at that point but did not require hospitalization. She denies any family history of colon polyps or colon cancer. She does continue to point to her generalized mid abdominal area as feeling abnormal and different. ROS General General: Yes fatigue; No weight change, appetite, colon cancer, breast cancer or weakness HEENT HEENT: Yes eye injury and eye surgery; No difficulty swallowing, swollen glands or hoarseness Endo Endocrine: No thyroid disease, diabetes mellitus, thyroid cancer, Hair loss, heat intolerance or cold intolerance Skin Skin: No rash or changing moles Breast Breast: No left breast lump, right breast lump, nipple discharge, breast pain, abnormal mammogram, abnormal US or breast enlargement Musc Musculoskeletal: Yes back problems and arthritis; No rheumatoid arthritis, gout or joint pain Cardio Cardiovascular: Yes high blood pressure; No murmur, pacemaker, heart disease, atrial fibrillation, heart attack, heart stent, palpitations, shortness of breat with exertion or chest pain Psych Psychiatric: Yes anxiety; No depression or hearing voices Resp Respiratory: No shortness of breath, No sleep apnea, No cough, No COPD, No asthma, No emphysema and No wheezing Gastro Gastrointestinal: Yes abdominal pain, No nausea or vomiting, No diarrhea, No constipation, No blood in stool, No acid reflux, Yes hemorrhoids, No ulcers, No gallbladder problem and No black,tarry stools Gamal Hematologic: No blood thinners, No blood disorders, Yes bleeding, No anemia and No blood clots Neuro Neurologic: No system reviewed and no additional complaints, except as documented, No as per HPI, No abnormal gait, No abnormal hearing, No abnormal movements, No abnormal speech, No behavioral changes, No burning sensations, No confusion, No convulsions, No disequilibrium, No dizziness, No localized weakness, No frequent falls, No headache(s), No lack of coordination, No loss of vision, No memory loss, No numbness, No other visual disturbances, No radicular pain, No restless legs, No sensory deficit, No syncope, No tingling, No tremor(s), No weakness and No other Exam Const General: cooperative, comfortable and no acute distress Nutritional Appearance: overweight Other: Marked thoracic and cervical kyphosis with height loss. HENMT Head: normal to inspection Eyes General: appearance normal, both eyes and all related structures Chest Other: Thoracic kyphosis Resp Effort & Inspection: normal respiratory effort Auscultation: clear to auscultation bilaterally Cardio Rate: regular rate Rhythm: regular rhythm GI Other: Soft, no focal mass, bowel sounds present nonspecific Skin General: no rashes or lesions noted Neuro General: patient alert, patient awake and patient oriented x3 Extrem Other: Right lower extremity pitting edema 2-3+ compared to left lower extremity 2+ Psych Appearance: grossly normal Assessment and Plan Assessment and Plan (1) Abdominal cramping: Status: Acute (2) Swelling of lower extremity: Status: Acute (3) Rectal bleeding: Status: Acute Orders: Orders: Abdomen/Pelvis WITH Contrast Today R10.9 Plan - Dr. Alphonso Jimenez MD: 85-year-old female who initially was referred for rectal bleeding now presents with a variety of issues. She is not focally tender on her exam bowel sounds are nonspecific. She has some concern about possible progression of compression fractures. The lower extremity swelling may simply be a chronic issue for her but she seems to describe that it is recently worse. Need to assess for possible abdominal or pelvic mass. Recommend to her that we obtain an abdominal pelvic CT scan. I then subsequently recommend colonoscopy with possible biopsy or polypectomy as indicated. Very careful inspection for potential source of rectal bleeding will be pursued. Subsequently that can then decide for what potential treatment option might be available. She continues to state that 3 years ago she tolerated total knee replacement. Caution needs to be pursued as she is 85. She has had an opportunity to ask and have questions answered. I appreciate the opportunity of assisting with her surgical care. We will schedule and proceed as noted. Copy: Dr. Anselmo Jimenez M.D., F.A.C.S. CT scan demonstrated some small adrenal nodules bilaterally. There were no acute findings. Diverticulosis was identified. Gallstones were noted. None of this would correlate with rectal bleeding. Plan to proceed with colonoscopy. Alphonso Jimenez M.D., F.A.C.S.
[2021-08-01 07:59] VITALS: BP 142/73; PULSE 103; RESP 22; TEMP 36.3; O2SAT 100; BMI 32.2
[2021-08-02] VITALS (7 sets, daily range): BP systolic 101–134; BP diastolic 53–68; PULSE 72–91; RESP 14–18; TEMP 36.4–36.7; O2SAT 96–100; BMI 32.2
--- NOTE | 2021-08-02 14:30 | COLBX_PTH ---
PATIENT: DESMOND OBRIEN LOC: EN U#:[id number] AGE/SX: 85/F ROOM: RE08/02/[address]: Dr. Alphonso Jimenez MD : 1935 BED: DIS: 08/02/2021 SPEC #: [id number] RECD: 08/02/21 15:58 STATUS: MARY KAY CLAUDIO #: [id number] CATRACHITA: 08/02/21 14:[address]: Alphonso Jimenez DEPT: SURGICAL PATHOLOGY RECD BY: Miriam Whitaker ENTERED: 08/03/21 08:57 SP TYPE: COLON BX OT DR: Dr. Anselmo Castle MD Tissues: A - Sigmoid colon biopsy B - Sigmoid colon biopsy C - Rectum, NOS Procedures: Surgery Specimen Level IV HEADER OPERATION: Colonoscopy ([facility] [place]) PRE-OP DIAGNOSIS: Abdominal cramping, swelling of lower extremity, rectal bleeding TISSUE SUBMITTED: A ? Mid sigmoid polyp biopsy, B ? Distal sigmoid inflammation biopsy, C ? Rectal biopsy MICROSCOPIC DIAGNOSIS A. Mid sigmoid polyp, biopsy: A fragment of colonic mucosa, no pathologic diagnosis. See comment. B. Distal sigmoid, biopsy: Focal acute colitis. See microscopic description and comment. C. Rectal biopsy: Focal acute colitis. See microscopic description and comment. SJ:rg 08/04/2021 COMMENT A. Hyperplastic or adenomatous changes are not identified. B & C. Correlation with clinical, endoscopic findings and appropriate follow up are necessary. MICROSCOPIC DESCRIPTION Slides are reviewed. B & C. Both specimens show similar morphologic changes. Specimens show fragments of colonic mucosa with acute and chronic inflammatory cell infiltrates in the lamina propria, cryptitis and crypt abscesses. Significant glandular distortion or granulomas are not seen. GROSS DESCRIPTION A - Received in fixative is one container labeled with the patient's name and designated mid sigmoid polyp biopsy. The specimen consists of one irregular fragment of light watson soft tissue that measures 0.3 x 0.3 x 0.1 cm. The specimen is totally submitted in one cassette. B - Received in fixative is one container labeled with the patient's name and designated distal sigmoid inflammation biopsy. The specimen consists of multiple irregular fragments of light watson soft tissue that in aggregate measure 1.2 x 0.3 x 0.1 cm. The specimen is totally submitted in one cassette. C - Received in fixative is one container labeled with the patient's name and designated rectal biopsy. The specimen consists of one irregular fragment of light watson soft tissue that measures 0.3 x 0.3 x 0.1 cm. The specimen is totally submitted in one cassette. / SJ:rg 08/03/2021 TC:2 CPT: 20401 x3
--- NOTE | 2021-08-02 15:12 | HP.PCM_ITS ---
History and Physical Date of Admission: 08/02/21 visit Reasons: Hemmorhoids/C-Scope Chief Complaint: hemorrhoids/c-scope [employer] Required: No Is patient in pain?: Yes (abd pain and cramping) Allergies Sulfa (Sulfonamide Antibiotics) Allergy (Verified 12/26/20 19:05) Rash sulfamethoxazole [From Bactrim] Allergy (Verified 12/26/20 19:05) Rash trimethoprim [From Bactrim] Allergy (Verified 12/26/20 19:05) Rash Medications amlodipine 5 mg PO DAILY 07/11/18 [History Confirmed 07/18/21] ergocalciferol (vitamin D2) [Vitamin D2] 1,000 unit PO DAILY 07/11/18 [History Confirmed 07/18/21] latanoprost 1 drp EACH EYE QHS 07/11/18 [History Confirmed 07/18/21] ihqvifta-uec-GA-lycopen-lutein [Centrum Silver] 1 ea PO DAILY 07/11/18 [History Confirmed 07/18/21] rosuvastatin 10 mg PO DAILY 07/11/18 [History Confirmed 07/18/21] vit C-vit W-tukfzn-xdhx-lutein [PreserVision Lutein] 1 ea PO DAILY 07/11/18 [History Confirmed 07/18/21] acetaminophen 1,000 mg PO Q8 07/26/18 [History Confirmed 07/18/21] PFSH Medical History (Updated 07/18/21 @ 15:[address] Alphonso Jimenez MD) Fracture of right tibial plateau Glaucoma Hyperlipidemia Hypertension Osteoarthritis Right knee pain Vitamin D deficiency Surgical History (Updated 07/18/21 @ 14:26 by Evie Mclean) Status post knee surgery Family History (Updated 07/18/21 @ 14:27 by Evie Mclean) Son Cancer testicular Sister Diabetes Hypertension Mother Hypertension Father Hypertension CAD (coronary artery disease) CVA (cerebral vascular accident) Social History (Updated 07/18/21 @ 14:27 by Evie Mclean) Smoking Status: Never smoker alcohol intake: never HPI HPI HPI: DESMOND OBRIEN, is a 85 F who presents to the office today for surgical consultation regarding possible hemorrhoid. The patient's history upon arrival however becomes significant more complex. She has been complaining of some intermittent rectal bleeding with blood on the tissue paper. But over the past couple weeks she has had new onset of abdominal cramping pain. She also has had increased burping. No weight loss. She was seen in Dr. Jamel Castle's office and was prescribed Proctofoam for suspected hemorrhoids. At that time however she was not having the abdominal cramping and burping. She denies weight loss. An additional new concern to her is leg swelling. Now she does admit that she has had chronic right lower extremity swelling and she is prescribed diuretic for as needed use. She states that she thinks her lower extremity swelling has increased recently. In the same line however she admits that the last 2 days she is not taking any diuretic. She is unsure as to whether she has had more salt in her diet. She states that when she had compression fractures in 2013 in 2016 she had some bowel dysfunction at that point but did not require hospitalization. She denies any family history of colon polyps or colon cancer. She does continue to point to her generalized mid abdominal area as feeling abnormal and different. ROS General General: Yes fatigue; No weight change, appetite, colon cancer, breast cancer or weakness HEENT HEENT: Yes eye injury and eye surgery; No difficulty swallowing, swollen glands or hoarseness Endo Endocrine: No thyroid disease, diabetes mellitus, thyroid cancer, Hair loss, heat intolerance or cold intolerance Skin Skin: No rash or changing moles Breast Breast: No left breast lump, right breast lump, nipple discharge, breast pain, abnormal mammogram, abnormal US or breast enlargement Musc Musculoskeletal: Yes back problems and arthritis; No rheumatoid arthritis, gout or joint pain Cardio Cardiovascular: Yes high blood pressure; No murmur, pacemaker, heart disease, atrial fibrillation, heart attack, heart stent, palpitations, shortness of breat with exertion or chest pain Psych Psychiatric: Yes anxiety; No depression or hearing voices Resp Respiratory: No shortness of breath, No sleep apnea, No cough, No COPD, No asthma, No emphysema and No wheezing Gastro Gastrointestinal: Yes abdominal pain, No nausea or vomiting, No diarrhea, No constipation, No blood in stool, No acid reflux, Yes hemorrhoids, No ulcers, No gallbladder problem and No black,tarry stools Gamal Hematologic: No blood thinners, No blood disorders, Yes bleeding, No anemia and No blood clots Neuro Neurologic: No system reviewed and no additional complaints, except as documented, No as per HPI, No abnormal gait, No abnormal hearing, No abnormal movements, No abnormal speech, No behavioral changes, No burning sensations, No confusion, No convulsions, No disequilibrium, No dizziness, No localized weakness, No frequent falls, No headache(s), No lack of coordination, No loss of vision, No memory loss, No numbness, No other visual disturbances, No radicular pain, No restless legs, No sensory deficit, No syncope, No tingling, No tremor(s), No weakness and No other Exam Const General: cooperative, comfortable and no acute distress Nutritional Appearance: overweight Other: Marked thoracic and cervical kyphosis with height loss. HENMT Head: normal to inspection Eyes General: appearance normal, both eyes and all related structures Chest Other: Thoracic kyphosis Resp Effort & Inspection: normal respiratory effort Auscultation: clear to auscultation bilaterally Cardio Rate: regular rate Rhythm: regular rhythm GI Other: Soft, no focal mass, bowel sounds present nonspecific Skin General: no rashes or lesions noted Neuro General: patient alert, patient awake and patient oriented x3 Extrem Other: Right lower extremity pitting edema 2-3+ compared to left lower extremity 2+ Psych Appearance: grossly normal Assessment and Plan Assessment and Plan (1) Abdominal cramping: Status: Acute (2) Swelling of lower extremity: Status: Acute (3) Rectal bleeding: Status: Acute Orders: Orders: Abdomen/Pelvis WITH Contrast Today R10.9 Plan - Dr. Alphonso Jimenez MD: 85-year-old female who initially was referred for rectal bleeding now presents with a variety of issues. She is not focally tender on her exam bowel sounds are nonspecific. She has some concern about possible progression of compression fractures. The lower extremity swelling may simply be a chronic issue for her but she seems to describe that it is recently worse. Need to assess for possible abdominal or pelvic mass. Recommend to her that we obtain an abdominal pelvic CT scan. I then subsequently recommend colonoscopy with possible biopsy or polypectomy as indicated. Very careful inspection for potential source of rectal bleeding will be pursued. Subsequently that can then decide for what potential treatment option might be available. She continues to state that 3 years ago she tolerated total knee replacement. Caution needs to be pursued as she is 85. She has had an opportunity to ask and have questions answered. I appreciate the opportunity of assisting with her surgical care. We will schedule and proceed as noted. Copy: Dr. Anselmo Jimenez M.D., F.A.C.S. CT scan demonstrated some small adrenal nodules bilaterally. There were no acute findings. Diverticulosis was identified. Gallstones were noted. None of this would correlate with rectal bleeding. Plan to proceed with colonoscopy. Alphonso Jimenez M.D., F.A.C.S. After the patient's arrival yesterday it became apparent she had a an adequate bowel prep. She underwent enemas was not able to hold them and there was evidence of still solid stool. She was then kept on clear liquids and underwent repeat bowel prepping. Unfortunately we could not proceed earlier today because of endoscopies for schedule. She presents now this afternoon to repeat an attempt at a colonoscopy with possible biopsy or polypectomy as indicated being performed for concern over rectal bleeding and abdominal cramping. Report is provided that she feels that this time she is producing a more clear stool. Alphonso Jimenez M.D., F.A.C.S.
--- NOTE | 2021-08-02 15:50 | OP.COLON_ITS ---
Patient Name: Joy Davis Procedure Date: 08/02/2021 3:10 PM Date of : 1935 Age: 85 Procedure: Colonoscopy Indications: Rectal bleeding Providers: Alphonso Jimenez MD Referring MD: Anselmo Castle Medicines: See the Anesthesia note for documentation of the administered medications Patient Profile: Last Colonoscopy: date unknown. Complications: No immediate complications. Procedure: Pre-Anesthesia Assessment: - Prior to the procedure, a History and Physical was performed, and patient medications and allergies were reviewed. The patient's tolerance of previous anesthesia was also reviewed. The risks and benefits of the procedure and the sedation options and risks were discussed with the patient. All questions were answered, and informed consent was obtained. Prior Anticoagulants: The patient has taken no previous anticoagulant or antiplatelet agents. ASA Grade Assessment: III - A patient with severe systemic disease. After reviewing the risks and benefits, the patient was deemed in satisfactory condition to undergo the procedure. After I obtained informed consent, the scope was passed under direct vision. Throughout the procedure, the patient's blood pressure, pulse, and oxygen saturations were monitored continuously. The Colonoscope was introduced through the anus and advanced to the cecum, identified by appendiceal orifice and ileocecal valve. The colonoscopy was somewhat difficult due to multiple diverticula in the colon. Successful completion of the procedure was aided by applying abdominal pressure. The patient tolerated the procedure well. The quality of the bowel preparation was good. The ileocecal valve and the appendiceal orifice were photographed. Scope In: 3:20:10 PM Scope Withdrawal Time 0 hours 7 minutes 46 seconds Scope Out: 3:42:02 PM Total Procedure Duration Time 0 hours 21 minutes 52 seconds Findings: The digital rectal exam findings include non-thrombosed external hemorrhoids, non-thrombosed internal hemorrhoids and internal hemorrhoids that prolapse with straining, but require manual replacement into the anal canal (Grade III). Diffuse mild inflammation characterized by erythema was found in the rectum and in the distal sigmoid colon. Biopsies were taken with a cold forceps for histology. A 4 mm polyp was found in the proximal sigmoid colon. The polyp was sessile. The polyp was removed with a cold biopsy forceps. Resection and retrieval were complete. Multiple diverticula were found in the sigmoid colon and descending colon. Impression: - Non-thrombosed external hemorrhoids, non-thrombosed internal hemorrhoids and internal hemorrhoids that prolapse with straining, but require manual replacement into the anal canal (Grade III) found on digital rectal exam. - Diffuse mild inflammation was found in the rectum and in the distal sigmoid colon secondary to colitis. Biopsied each area. - One 4 mm polyp in the proximal sigmoid colon, removed with a cold biopsy forceps. Resected and retrieved. - Diverticulosis in the sigmoid colon and in the descending colon. Recommendation: - Discharge patient to home. - Resume previous diet. - Continue present medications. - Repeat colonoscopy is not recommended due to current age (66 years or older) for screening purposes. - Telephone my office for pathology results in 1 week. Rectal bleeding possible mild colitis vs hemorrhoids. No active bleeding at this moment. Will await pathology results and then if indicated treat colitis if present. Procedure Code(s): --- Professional --- 34994, Colonoscopy, flexible; with biopsy, single or multiple Diagnosis Code(s): --- Professional --- K64.2, Third degree hemorrhoids K64.4, Residual hemorrhoidal skin tags K52.9, Noninfective gastroenteritis and colitis, unspecified D12.5, Benign neoplasm of sigmoid colon K62.5, Hemorrhage of anus and rectum K57.30, Diverticulosis of large intestine without perforation or abscess without bleeding CPT copyright 2017 [employer]. All rights reserved. The codes documented in this report are preliminary and upon bilingual customer service specialist review may be revised to meet current compliance requirements. Alphonso Jimenez MD 08/02/2021 3:49:29 PM This report has been signed electronically. Number of Addenda: 0 Note Initiated On: 08/02/2021 3:10 PM
--- NOTE | 2021-08-02 15:50 | OP.CCLET_ITS ---
08/02/2021 Anselmo Castle Re : Colonoscopy procedure for Joy Sabar Tin This procedure was performed on Monday, August 02, 2021. My impressions and recommendations are as follows: Impressions : - Non-thrombosed external hemorrhoids, non-thrombosed internal hemorrhoids and internal hemorrhoids that prolapse with straining, but require manual replacement into the anal canal (Grade III) found on digital rectal exam. - Diffuse mild inflammation was found in the rectum and in the distal sigmoid colon secondary to colitis. Biopsied each area. - One 4 mm polyp in the proximal sigmoid colon, removed with a cold biopsy forceps. Resected and retrieved. - Diverticulosis in the sigmoid colon and in the descending colon. Recommendations : - Discharge patient to home. - Resume previous diet. - Continue present medications. - Repeat colonoscopy is not recommended due to current age (66 years or older) for screening purposes. - Telephone my office for pathology results in 1 week. Rectal bleeding possible mild colitis vs hemorrhoids. No active bleeding at this moment. Will await pathology results and then if indicated treat colitis if present. My findings are described in the full procedure note, which is enclosed. If I can be of further assistance, please feel free to contact me at Doctor phone number(s): Work: . Sincerely, Alphonso Jimenez MD 08/02/2021 3:49:29 PM This report has been signed electronically.
== END 2021-08-02 23:59 | disposition home or self-care (01) ==
LOC: EN 13:18 → AC 13:21
PROVIDERS: PCP Family Medicine; Referring Provider Family Medicine; Visit Provider Surgery
PROC: 0DJD8ZZ Inspection of Lower Intestinal Tract, Via Natural or Artificial Opening Endoscopic (ICD-10-PCS; CPT 45378; principal; 2021-08-02 14:25)
DX: Z12.11 Encounter for screening for malignant neoplasm of colon (principal); K64.4 Residual hemorrhoidal skin tags; K57.30 Diverticulosis of large intestine without perforation or abscess without bleeding; K52.9 Noninfective gastroenteritis and colitis, unspecified; K64.2 Third degree hemorrhoids; K63.5 Polyp of colon; I10 Essential (primary) hypertension; E55.9 Vitamin D deficiency, unspecified; E78.00 Pure hypercholesterolemia, unspecified; Z79.899 Other long term (current) drug therapy
CPT/HCPCS: 45380; 88305; J7120; J2405

== ENCOUNTER 2024-06-11 07:41 | Inpatient (IN) | payer MEDICARE, SELFPAY ==
[2024-06-11] VITALS (22 sets, daily range): BP systolic 110–150; BP diastolic 43–78; PULSE 78–97; RESP 12–28; TEMP 36.5–36.7; O2SAT 81–97; BMI 33.9; BMI 30.2
--- NOTE | 2024-06-11 07:44 | EKG12_ITS ---
Test Reason : SOB Blood Pressure : */* mmHG Vent. Rate : 89 BPM Atrial Rate : * BPM P-R Int : * ms QRS Dur : 68 ms QT Int : 376 ms P-R-T Axes : * 44 -15 degrees QTcB Int : 457 ms Atrial fibrillation Abnormal ECG Confirmed by MAYCOL BERRY, KHANH ([id number]), editor producer ROCIO LOUISE ([id number]) on 06/15/2024 8:03:30 AM Referred By: MARIANO Confirmed By: KHANH SEVERINO MD
--- NOTE | 2024-06-11 07:46 | ED.VIS.DYS ---
HPI History of Present Illness Chief Complaint: Shortness of Breath Detail of Chief Complaint: Shortness of breath Informant: patient Narrative Narrative: Patient presents to the emergency department complaint shortness of breath and not feeling well x 3 days. She denies chest pain. She has had a cough that is mostly nonproductive. She denies fever. She denies sick contacts. She denies history of congestive heart failure or atrial fibrillation. She is not anticoagulated. She has history of hypertension and cholesterol. She does complain of swelling in her legs. [facility] Medical History (Updated 06/11/24 @ 09:[address] Clarissa Xie, DO) Wears glasses Wears partial dentures Cancer Depression Walker as ambulation aid Arthritis Anemia High cholesterol Easy bruising Restless legs Migraine headache Bleeding hemorrhoids History of diverticulosis Non-smoker Leg cramps History of pain when walking History of edema History of stress test Cardiology follow-up encounter Osteoarthritis Glaucoma Hypertension Vitamin D deficiency Hyperlipidemia Fracture of right tibial plateau Right knee pain Home Medications ?Medication ?Instructions ?Recorded ?Last Taken ?Type amlodipine 5 mg tablet 10 mg PO DAILY BP 07/11/18 08/01/21 History ergocalciferol (vitamin D2) 1,250 1,000 unit PO DAILY SUPPLEMENT 07/11/18 Unknown History mcg (50,000 unit) capsule (Vitamin D2) latanoprost 0.005 % eye drops 1 drp QHS EYE DROPS 07/11/18 Unknown History puetiqem-[id number] acid 0.4 1 ea PO DAILY SUPPLEMENT 07/11/18 Unknown History mg-lycopene 300 mcg-lutein 250 mcg tablet (Centrum Silver) rosuvastatin 10 mg tablet 10 mg PO DAILY CHOLESTEROL 07/11/18 Unknown History vit C 226 mg-vit E 90 mg-copper 1 ea PO BID SUPPLEMENT 07/11/18 Unknown History 0.8 mg-zinc oxide-lutein 5 mg capsule (PreserVision Lutein) Allergy/AdvReac Type Severity Reaction Status Date / Time Sulfa (Sulfonamide Allergy Rash Verified 06/11/24 07:51 Antibiotics) sulfamethoxazole (From Allergy Rash Verified 06/11/24 07:51 Bactrim) trimethoprim (From Bactrim) Allergy Rash Verified 06/11/24 07:51 Family History (Updated 07/18/21 @ 14:27 by Evie Mclean) Son Cancer testicular Sister Diabetes Hypertension Mother Hypertension Father Hypertension CAD (coronary artery disease) CVA (cerebral vascular accident) Surgical History Hx of colonoscopy Hx of left cataract extraction Hx of right cataract extraction Hx of total knee arthroplasty Hx of total knee arthroplasty Status post knee surgery Social History (Updated 07/18/21 @ 14:27 by Evie Mclean) Smoking Status: Never smoker alcohol intake: never ROS ROS ED Review of Systems ROS Unobtainable: other Constitutional Constitutional ED: Reports lethargy; Denies chills, fever(s), sweats or weight loss Eyes Eyes: Denies blurry vision, change in vision or diplopia ENT ENT ED: Denies rhinorrhea or sore throat Cardiovascular Cardiovascular: Denies chest pain, orthopnea or racing heartbeat Respiratory/Chest Respiratory/Chest: Reports cough, dyspnea and dyspnea on exertion; Denies orthopnea or sputum Gastrointestinal Gastrointestinal: Denies abdominal pain, diarrhea, nausea or vomiting Genitourinary Genitourinary ED: Denies dysuria, hematuria or urinary frequency Musculoskeletal Musculoskeletal: Denies arthralgias, back pain, myalgias or neck pain Integumentary Denies abscess, Abrasions or rash Neurologic Neurologic: Denies headache(s) or weakness Psychiatric Psychiatric: Denies anxiety, depression or suicidal thoughts Endocrine Endocrinology: Denies polydipsia, polyphagia or polyuria Hematologic/Lymphatic Hematologic/Lymphatic: Denies easy bleeding, easy bruising or lymphadenopathy Allergic/Immunologic Allergic/Immunologic ED: Denies mouth swelling, tongue swelling or urticaria EXAM Physical Exam Const Vital Signs: 06/11/24 07:41 06/11/24 07:46 06/11/24 07:46 Temperature 98 F 98.0 F Temperature Source Oral Oral Pulse Rate 97 90 Respiratory Rate 24 H 24 H Respiratory Effort Respiratory Depth Respiratory Pattern Blood Pressure 150/78 H 140/63 H Blood Pressure Mean 102 88 Pulse Ox 81 93 93 Oxygen Delivery Method Room Air Nasal Cannula Nasal Cannula Oxygen Flow Rate (L/min) 6 6 06/11/24 07:57 06/11/24 08:16 Temperature Temperature Source Pulse Rate 95 Respiratory Rate Respiratory Effort Normal Non-Labored Respiratory Depth Normal Respiratory Pattern Normal Blood Pressure 138/48 H Blood Pressure Mean Pulse Ox Oxygen Delivery Method Nasal Cannula Oxygen Flow Rate (L/min) 6 Positive well nourished and well developed General Appearance ED: well developed and NAD HEENT Reports TM's clear and moist mucous membranes normocephalic and atraumatic; Negative for trauma or tenderness Tympanic Membrane ED: Yes TM's clear Eyes PERRL and EOMs intact bilaterally General Eye ED: Negative for pale conjunctiva or scleral icterus Neck no lymphadenopathy, supple and no JVD General: Negative for tenderness Chest Wall inspection of chest normal and palpation of chest normal Chest: Negative for tenderness Resp normal respiratory effort and clear to auscultation bilaterally Resp Narrative: Few coarse rhonchi bilaterally with some faint Rales noted in the bases bilaterally. No accessory muscle use or retractions. Mild conversational dyspnea. Mild tachypnea. Effort and Inspection: Negative for respiratory distress or pain with movement Auscultation: Negative for rhonchi, wheezes or diminished lung sounds Cardio regular rate, regular rhythm, S1 normal heart sound, S2 normal heart sound and no murmurs Peripheral Pulses: pulses 2+ throughout GI normal to inspection, nondistended, normoactive bowel sounds, soft to palpation, non-tender, non-distended and no masses Back/Spine no CVA tenderness and no thoracic nor lumbar tenderness Extremity normal to inspection General Extremety ED: Negative for edema General Extremity: Negative for edema Neuro oriented x3, CN's II-XII intact bilaterally, no sensory deficits noted and gait normal Sensorium / Orientation: awake, alert, oriented to person, oriented to place and oriented to time Motor Exam: strength 5/5 throughout and strength abnormal Psych mental status grossly normal Skin no rashes or lesions noted and no wounds MDM MDM MDM Narrative Medical decision making narrative: Patient presents the emergency department complaint of not feeling well for last 3 days. She has had some sensation of racing heart and skipping beats. On exam she has irregularly irregular heart rhythm and EKG obtained shows atrial fibrillation with ventricular rate of 89 bpm with no acute ST segment changes. Will obtain chest x-ray and labs. EKG showed new onset A-fib with rate in the 90s. She was placed on see 6 L nasal cannula O2. CBC with differential white count 11.5 with hemoglobin 10.6 and platelet count of 232. Chemistries showed a low sodium of 125 with potassium 3.7 as well as BUN of 19 and creatinine 0.66. Troponin was normal at 16. BNP was elevated to 83.7. D-dimer also elevated 1.4. Patient was given Cardizem 30 mg p.o. She was given Lasix 40 mg IV. Patient had an inch of Nitropaste placed to the anterior chest wall. She was given Lovenox 74 mg subcu due to the new onset A-fib and given elevated D-dimer also concern for possible PE. CTA of the chest was obtained to rule out PE. CTA of the chest showed pleural effusions with no evidence for PE. Will discuss case with hospitalist to evaluate patient for admission. Lab Data Attestation: I reviewed the patient's lab results. Labs: Laboratory Results - last 24 hr 06/11/24 07:55 WBC 11.5 H RBC 3.53 L Hgb 10.6 L Hct 30.5 L MCV 86.4 MCH 30.0 MCHC 34.8 RDW Std Deviation 41.6 RDW Coeff of Dioni 13.3 Plt Count 232 MPV 11.0 Immature Gran % (Auto) 0.300 Neut % (Auto) 87.1 H Lymph % (Auto) 5.8 L [place] % (Auto) 6.5 Eos % (Auto) 0.1 Baso % (Auto) 0.2 Absolute Neuts (auto) 10.0 H Absolute Lymphs (auto) 0.67 L Nucleated RBC % 0 D-Dimer Quant (PE/DVT) 1.40 H* Sodium 125 L Potassium 3.7 Chloride 89 L Carbon Dioxide 25.0 Anion Gap 11 BUN 19 H Creatinine 0.66 Estim Creat Clear Calc 42.61 Est GFR (MDRD) Af Amer 108 Est GFR (MDRD) Non-Af 90 BUN/Creatinine Ratio 28.8 H Glucose 151 H Calcium 9.3 Troponin I High Sens 16 B-Natriuretic Peptide 283.7 H Radiography Diagnostic Testing: Clinical Impression(s) from Imaging Studies Chest X-Ray 06/11/24 08:00 IMPRESSION: Small right and moderate left pleural effusions are seen. Moderate interstitial Pulmonary Edema is identified. No pneumothorax is seen. The cardiomediastinal silhouette is within the normal range for age and technique. Advanced bilateral glenohumeral joint arthritic changes are seen right worse than left. Reading Location: [address] 1 view chest x-ray obtained interpreted by myself as bilateral pleural effusions with pulmonary congestion consistent with CHF. Radiology in agreement. EKG Initial EKG: Attestation: I personally reviewed and interpreted this EKG as follows: Comments: Atrial fibrillation with ventricular rate of 89 bpm with no acute ST segment changes Critical Care Time Critical Care Time: Yes Critical care time (excluding procedures): 30-74 minutes, Including time spent:, Discussing w/Patient &/or Family/Geometry Professor, Discussing w/Consultants, Arranging Admission or Transfer, Performing Direct Patient Care at Bedside and - (30 minutes) Discharge Plan Triage Chief Complaint: Shortness of Breath ED Provider: Clarissa Xie Dx/Rx/DC Orders Clinical Impression: Atrial fibrillation, new onset, Pleural effusion, Respiratory failure, CHF (congestive heart failure) Prescriptions: No Action latanoprost 1 DROP bottle 1 drp Each Eye QHS amlodipine 5 MG tablet 10 mg PO DAILY ergocalciferol (vitamin D2) [Vitamin D2] 50,000 UNIT capsule 1,000 unit PO DAILY rosuvastatin 10 MG tablet 10 mg PO DAILY Centrum Silver 1 EACH tablet 1 ea PO DAILY PreserVision Lutein 1 EACH capsule 1 ea PO BID Primary Care Provider: Anselmo Castle Referrals: Anselmo Castle MD [Primary Care Provider] - Print Language: Cook Islander Disposition Disposition: Acute Care Hospital [facility]
--- NOTE | 2024-06-11 08:00 | RAD_ITS ---
PROCEDURE: CHEST 1 VIEW (PORTABLE) REASON FOR EXAM: Dyspnea. TECHNIQUE: AP portable upright view of the chest. COMPARISON: None. RAD/Chest 1 View (Portable) IMPRESSION: Small right and moderate left pleural effusions are seen. Moderate interstitial Pulmonary Edema is identified. No pneumothorax is seen. The cardiomediastinal silhouette is within the normal range for age and techniq ue. Advanced bilateral glenohumeral joint arthritic changes are seen right worse th an left. Reading Location: [id number]
[2024-06-11 08:06] LABS: Absolute Lymphocyte Count 0.67 X10^3/uL (0.83-4.51); Basophil# 0.02 X10^3/uL; Basophil% 0.2 % (0-1); Eosinophil# 0.01 X10^3/uL; Eosinophils% 0.1 % (0-5); Hematocrit 30.5 % (37-47); Hemoglobin 10.6 g/dL (12.0-15.0); Lymphocyte # 0.67 X10^3/ul (0.83-4.51); Lymphocyte % 5.8 % (19-41); Mean Corp Hgb Conc 34.8 g/dL (32-36); Mean Corpuscular Volume 86.4 fL (81-99); Monocyte# 0.75 X10^3/uL; Monocyte% 6.5 % (0-10); NRBC Flagged by Analyzer 0 % (0-5); Neutrophil # 9.98 X10^3/uL (2.7-7.7); Neutrophil % 87.1 % (47-70); Platelet Count 232 K/mm3 (150-450); RBC Distribution Width CV 13.3 % (11.6-14.6); RBC Distribution Width SD 41.6 fl (35.1-43.9); Red Blood Count 3.53 M/mm3 (4.2-5.4); White Blood Count 11.5 K/mm3 (4.4-11.0)
[2024-06-11] MEDS: Nitroglycerin Oint 1 INCH PACKET TD (08:16)
[2024-06-11] MEDS: Furosemide 40 MG/4 ML Vial IV ×2 (08:17→17:58)
--- NOTE | 2024-06-11 08:20 | ED.RN ---
D-DIMER 1.40. DR VALLEJO
[2024-06-11 08:28] LABS: Anion Gap 11 (5-15); BUN 19 mg/dL (7-18); BUN/Creat Ratio 28.8 RATIO (10-20); Calcium,Total 9.3 mg/dL (8.5-10.1); Chloride 89 mmol/L (98-107); Creatinine, Serum 0.66 mg/dL (0.55-1.02); EST Glomerular Filtration Rate 90 mL/min (>60); Est Glom Filt Rate - Afr Amer 108 mL/min (>60); Estimated Creatinine Clearance 42.61 ml/min; Glucose 151 mg/dL (74-106); Potassium 3.7 mmol/L (3.5-5.1); Sodium Level 125 mmol/L (136-145); Troponin-I HS 16 pg/mL (3.0-54.0)
--- NOTE | 2024-06-11 08:31 | CT_ITS ---
PROCEDURE: CTA CHEST W/WO CONTRAST REASON FOR EXAM: Dyspnea. Elevated D-dimer. TECHNIQUE: CTA imaging of the chest with intravenous contrast. 3D reconstructions. CONTRAST: 96 cc of Isovue-300 70 COMPARISON: Comparison is made with prior chest radiograph done earlier in the day. FINDINGS: Hardware: None. Heterogeneous enlargement of the thyroid gland with substernal extension. Lymph nodes: Small benign-appearing mediastinal lymph nodes. Heart: Cardiomegaly. RV/LV Diameter Ratio: N/A Thoracic Aorta: No thoracic aortic aneurysm or dissection. Pulmonary Vessels: No evidence of acute pulmonary emboli through the major subsegmental branches. Lungs and Airways: Moderate-sized bilateral pleural effusions right greater than left with the airspace disease in both lower lobes suggestive of either pulmonary infiltrates versus compressive atelectasis. This is worse on the right side. Upper Abdomen: Visualized portions of the upper abdominal viscera are unremarkable. Bones: Degenerative changes of the thoracic spine. Increased kyphosis. Almost complete collapse of the T12 vertebrae. CT/CTA Chest W/WO Contrast IMPRESSION: Moderate-sized bilateral pleural effusions right greater than left with bibasil ar airspace disease suggestive of either pneumonic infiltration versus compressive atelectasis due to the pleural effusions. No evidence of pulmonary emboli. Enlarged substernal extension of the thyroid. Heterogeneous appearance. One or more dose reduction techniques were used (e.g., Automated exposure contr ol, adjustment of the mA and/or kV according to patient size, use of iterative reconstruction technique). Reading Location: [place] [id number]
[2024-06-11] MEDS: dilTIAZem 30 MG Tablet PO (08:37)
[2024-06-11] MEDS: Enoxaparin 80 MG/0.8 ML Syringe 74 MG SC (08:37)
[2024-06-11 08:45] LABS: BNP,B-Type NATRIURETIC PEPTIDE 283.7 pg/mL (0-100)
[2024-06-11] MEDS: Metoprolol Tartrate 25 MG Tablet 12.5 MG PO ×2 (13:59→21:33)
[2024-06-11] MEDS: amLODIPine 10 MG Tablet PO (14:00)
--- NOTE | 2024-06-11 14:27 | ECHOD_ITS ---
Reason For Study : CONGESTIVE HEART FAILURE Procedure This was a 2D Doppler, Color Flow transthoracic echocardiogram. Exam performed portable in patient room. Left Ventricle Normal LV size. Left ventricular systolic function is normal. The left ventricular ejection fraction is 60 %. No regional wall motion abnormalities noted. Right Ventricle Normal RV size. Normal systolic function. Atria Normal left atrium. Normal right atrium. Mitral Valve Normal mitral valve. Mild (1+) mitral valve insufficiency. Tricuspid Valve Normal tricuspid valve. Mild to moderate (1-2+) tricuspid valve insufficiency. Pulmonary artery systolic pressure is 46 mmHg. Aortic Valve Trisinus/trileaflet aortic valve. Mild (1+) aortic valve insufficiency. Pulmonic Valve Normal pulmonic valve. Great Vessels Normal aortic root. The pulmonary artery is normal size. Inferior vena cava collapse with respiration. Pericardium/Pleural No pericardial effusion. Moderate size left pleural effusion. MMode/2D Measurements & Calculations LVIDd: 3.0 cm IVSd: 1.1 cm LVOT diam: 1.9 cm LVIDs: 1.7 cm LVPWd: 1.2 cm LVOT area: 2.9 cm2 RVDd: 3.9 cm FS: 42.5 % asc Aorta Diam: 3.0 cm LAV(MOD-bp): 58.4 ml LVAd ap4: 13.4 cm2 LAV(MOD-bp) Indexed: 35.9 ml/m2 LVLd ap4: 6.7 cm LAV(MOD-sp2): 65.7 ml EDV(MOD-sp4): 21.5 ml LAV(MOD-sp4): 50.6 ml EDV(sp4-el): 22.9 ml LVAs ap4: 7.9 cm2 LVLs ap4: 5.8 cm ESV(MOD-sp4): 8.8 ml ESV(sp4-el): 9.1 ml EF(MOD-sp4): 59.1 % EF(sp4-el): 60.4 % LVAd ap2: 15.5 cm2 SV(MOD-sp4): 12.7 ml SV(MOD-sp2): 16.4 ml LVLd ap2: 7.1 cm SI(MOD-sp4): 7.8 ml/m2 SI(MOD-sp2): 10.0 ml/m2 EDV(MOD-sp2): 27.4 ml EDV(sp2-el): 28.7 ml LVAs ap2: 8.5 cm2 LVLs ap2: 5.6 cm ESV(MOD-sp2): 11.1 ml ESV(sp2-el): 10.9 ml EF(MOD-sp2): 59.7 % SV(sp4-el): 13.8 ml Ao sinus diam: 2.[address] Junction: 2.3 cm LA dimension(2D): 4.2 cm LA A4 area: 18.6 cm2 RA A4 area: 16.9 cm2 TAPSE: 1.4 cm Time Measurements MV dec time: 0.14 sec Doppler Measurements & Calculations MV E max iker: 89.9 cm/sec Ao V2 max: 129.0 cm/sec LV V1 max: 96.5 cm/sec Ao max P.7 mmHg LV V1 max P.7 mmHg Ao V2 mean: 88.7 cm/sec LV V1 mean P.9 mmHg Ao mean P.6 mmHg LV V1 mean: 64.2 cm/sec Ao V2 VTI: 28.0 cm LV V1 VTI: 20.1 cm AV (velocity ratio): 0.72 SAVI(I,D): 2.1 cm2 SAVI(V,D): 2.2 cm2 SV(LVOT): 58.8 ml PA V2 max: 68.4 cm/sec TR max iker: 329.7 cm/sec TR max P.5 mmHg ECHO/Echo Complete Interpretation Summary Normal LV size. Left ventricular systolic function is normal. The left ventricular ejection fraction is 60 %. Mild (1+) mitral valve insufficiency. Pulmonary artery systolic pressure is 46 mmHg. Ordering Physician: Aly Hagan Performed By: Elizabeth Acuna RDCS
--- NOTE | 2024-06-11 14:28 | PCM.HP.STD ---
HPI - General General Date of Admission: 06/11/24 HPI Narrative DESMOND OBRIEN, is a 88 F who presents to the hospital with increasing shortness of breath since Saturday. Viral workup was unremarkable and she was noted to have bilateral pleural effusions with the right being greater than the left with compressive atelectasis. She has a slight leukocytosis to 11 but no obvious infective symptoms, she is afebrile. While here in the hospital in the ER she was found to be in A-fib, her heart rate was in the low 90s to 100s so she was given a dose of oral Cardizem and then transition to p.o. metoprolol. She is given a dose of Lasix as her BNP was elevated and a CTA of the chest was done as her D-dimer was elevated, this was negative for PE. Given the compressive atelectasis and bilateral pleural effusion she was also placed on BiPAP in the ER. [facility] Medical History (Updated 06/11/24 @ 09:[address] Clarissa Xie, DO) Wears glasses Wears partial dentures Cancer Depression Walker as ambulation aid Arthritis Anemia High cholesterol Easy bruising Restless legs Migraine headache Bleeding hemorrhoids History of diverticulosis Non-smoker Leg cramps History of pain when walking History of edema History of stress test Cardiology follow-up encounter Osteoarthritis Glaucoma Hypertension Vitamin D deficiency Hyperlipidemia Fracture of right tibial plateau Right knee pain Home Medications ?Medication ?Instructions ?Recorded ?Last Taken ?Type amlodipine 5 mg tablet 10 mg PO DAILY BP 07/11/18 08/01/21 History ergocalciferol (vitamin D2) 1,250 1,000 unit PO DAILY SUPPLEMENT 07/11/18 Unknown History mcg (50,000 unit) capsule (Vitamin D2) latanoprost 0.005 % eye drops 1 drp QHS EYE DROPS 07/11/18 Unknown History dfctanaa-dhb-rsflg acid 0.4 1 ea PO DAILY SUPPLEMENT 07/11/18 Unknown History mg-lycopene 300 mcg-lutein 250 mcg tablet (Centrum Silver) rosuvastatin 10 mg tablet 10 mg PO DAILY CHOLESTEROL 07/11/18 Unknown History vit C 226 mg-vit E 90 mg-copper 1 ea PO BID SUPPLEMENT 07/11/18 Unknown History 0.8 mg-zinc oxide-lutein 5 mg capsule (PreserVision Lutein) Allergy/AdvReac Type Severity Reaction Status Date / Time Sulfa (Sulfonamide Allergy Rash Verified 06/11/24 07:51 Antibiotics) sulfamethoxazole (From Allergy Rash Verified 06/11/24 07:51 Bactrim) trimethoprim (From Bactrim) Allergy Rash Verified 06/11/24 07:51 Family History (Updated 07/18/21 @ 14:27 by Evie Mclean) Son Cancer testicular Sister Diabetes Hypertension Mother Hypertension Father Hypertension CAD (coronary artery disease) CVA (cerebral vascular accident) Surgical History Hx of colonoscopy Hx of left cataract extraction Hx of right cataract extraction Hx of total knee arthroplasty Hx of total knee arthroplasty Status post knee surgery Social History (Updated 07/18/21 @ 14:27 by Evie Mclean) Smoking Status: Never smoker alcohol intake: never ROS Constitutional Constitutional: Denies chills, fatigue, fever(s) or malaise Eyes Eyes: Denies blurry vision ENT HEENT: Denies headache(s) or nasal discharge Cardiovascular Cardiovascular: Reports dyspnea on exertion and edema; Denies chest pain or syncope Respiratory/Chest Respiratory/Chest: Reports cough and shortness of breath at rest; Denies shortness of breath with exertion Gastrointestinal Gastrointestinal: Denies constipation, diarrhea, nausea or vomiting Genitourinary Genitourinary: Denies dysuria Neurologic Neurologic: Denies focal weakness, numbness or tremor(s) Psychiatric Psychiatric: Denies anxiety or depression Vital Signs Vital Signs Vital Signs: 06/11/24 07:41 06/11/24 07:46 06/11/24 07:46 Temperature 98 F 98.0 F Temperature Source Oral Oral Pulse Rate 97 90 Respiratory Rate 24 H 24 H Respiratory Effort Respiratory Depth Respiratory Pattern Blood Pressure 150/78 H 140/63 H Blood Pressure Mean 102 88 Blood Pressure Source Blood Pressure Position Blood Pressure Location Pulse Ox 81 93 93 Oxygen Delivery Method Room Air Nasal Cannula Nasal Cannula Oxygen Flow Rate (L/min) 6 6 Fraction of Inspired Oxygen (FIO2) 06/11/24 07:57 06/11/24 08:16 06/11/24 09:08 Temperature Temperature Source Pulse Rate 95 Respiratory Rate Respiratory Effort Normal Non-Labored Respiratory Depth Normal Respiratory Pattern Normal Blood Pressure 138/48 H Blood Pressure Mean Blood Pressure Source Blood Pressure Position Blood Pressure Location Pulse Ox 84 Oxygen Delivery Method Nasal Cannula Nasal Cannula Oxygen Flow Rate (L/min) 6 6 Fraction of Inspired Oxygen (FIO2) 06/11/24 09:10 06/11/24 09:11 06/11/24 09:12 Temperature 98.0 F Temperature Source Oral Pulse Rate 89 Respiratory Rate 18 Respiratory Effort Respiratory Depth Respiratory Pattern Blood Pressure 141/43 H Blood Pressure Mean 75 Blood Pressure Source Blood Pressure Position Blood Pressure Location Pulse Ox 87 92 93 Oxygen Delivery Method High Flow Non-Rebreather Non-Rebreather Oxygen Flow Rate (L/min) 10 15 Fraction of Inspired Oxygen (FIO2) 06/11/24 09:36 06/11/24 09:36 06/11/24 09:56 Temperature 98.0 F Temperature Source Pulse Rate 87 84 Respiratory Rate 24 H 18 Respiratory Effort Respiratory Depth Respiratory Pattern Tachypnea Blood Pressure 140/64 H Blood Pressure Mean 89 Blood Pressure Source Blood Pressure Position Blood Pressure Location Pulse Ox 95 95 93 Oxygen Delivery Method Bi-pap Oxygen Flow Rate (L/min) Fraction of Inspired Oxygen (FIO2) 60 60 06/11/24 10:25 06/11/24 10:39 06/11/24 13:54 Temperature 97.8 F Temperature Source Axillary Pulse Rate 83 83 Respiratory Rate 28 H Respiratory Effort Normal Respiratory Depth Respiratory Pattern Tachypnea Blood Pressure 110/55 L 125/66 H Blood Pressure Mean 73 85 Blood Pressure Source Monitor Blood Pressure Position Semi-Fowlers Blood Pressure Location Right Arm Pulse Ox 96 91 Oxygen Delivery Method Bi-pap Bi-pap Nasal Cannula Oxygen Flow Rate (L/min) 6 Fraction of Inspired Oxygen (FIO2) 60 06/11/24 13:59 Temperature Temperature Source Pulse Rate 83 Respiratory Rate Respiratory Effort Respiratory Depth Respiratory Pattern Blood Pressure Blood Pressure Mean Blood Pressure Source Blood Pressure Position Blood Pressure Location Pulse Ox Oxygen Delivery Method Oxygen Flow Rate (L/min) Fraction of Inspired Oxygen (FIO2) Weight Weight: 149 lb 11.102 oz Body Mass Index (BMI) 30.2 Physical Exam Narrative General: Alert, Oriented x3, Cooperative, mild respiratory distress HEENT: Atraumatic, PERRLA, EOMI, Normocephalic Oral: Moist Mucosa Neck: Supple, No JVD Lungs: Diminished, Normal air movement, No rhonchi, No wheeze, No rales, tachypneic mild increased work of breathing Cardiovascular: Irregular rate and rhythm, Normal S1, Normal S2, No murmurs Abdomen: Soft, Non Tender, Non-Distended, No Hepato-splenomegaly Extremities: Edema, Capillary Refill Less than 3 Seconds Skin: No rashes, No breakdown Musculoskeletal: No Tenderness to Palpation of Joints or Extremities Neurological: No focal neurological deficits, Motor Exam 5/5 strength throughout, Sensory exam intact to light touch and pain Psych/Mental Status: Normal Affect, Appropriate Results Lab / Micro Data 06/11/24 07:55 06/11/24 07:55 Labs: Laboratory Results - last 24 hr 06/11/24 07:55: WBC 11.5 H, RBC 3.53 L, Hgb 10.6 L, Hct 30.5 L, MCV 86.4, MCH 30.0, MCHC 34.8, RDW Std Deviation 41.6, RDW Coeff of Dioni 13.3, Plt Count 232, MPV 11.0, Immature Gran % (Auto) 0.300, Neut % (Auto) 87.1 H, Lymph % (Auto) 5.8 L, [place] % (Auto) 6.5, Eos % (Auto) 0.1, Baso % (Auto) 0.2, Absolute Neuts (auto) 10.0 H, Absolute Lymphs (auto) 0.67 L, Nucleated RBC % 0, D-Dimer Quant (PE/DVT) 1.40 H*, Sodium 125 L, Potassium 3.7, Chloride 89 L, Carbon Dioxide 25.0, Anion Gap 11, BUN 19 H, Creatinine 0.66, Estim Creat Clear Calc 42.61, Est GFR (MDRD) Af Amer 108, Est GFR (MDRD) Non-Af 90, BUN/Creatinine Ratio 28.8 H, Glucose 151 H, Calcium 9.3, Troponin I High Sens 16, B-Natriuretic Peptide 283.7 H Micro: Microbiology 06/11/24 07:50 Mucosa - Nose SARS-CoV-2, Influenza & RSV (PCR) - Final Imaging Radiology Impression Chest X-Ray 06/11/24 08:00 IMPRESSION: Small right and moderate left pleural effusions are seen. Moderate interstitial Pulmonary Edema is identified. No pneumothorax is seen. The cardiomediastinal silhouette is within the normal range for age and technique. Advanced bilateral glenohumeral joint arthritic changes are seen right worse than left. Reading Location: [id number] Chest CTA 06/11/24 08:31 IMPRESSION: Moderate-sized bilateral pleural effusions right greater than left with bibasilar airspace disease suggestive of either pneumonic infiltration versus compressive atelectasis due to the pleural effusions. No evidence of pulmonary emboli. Enlarged substernal extension of the thyroid. Heterogeneous appearance. One or more dose reduction techniques were used (e.g., Automated exposure control, adjustment of the mA and/or kV according to patient size, use of iterative reconstruction technique). [facility] Assessment & Plan Assessment/Plan (1) CHF (congestive heart failure): (2) Respiratory failure: (3) Pleural effusion: (4) Atrial fibrillation, new onset: PLAN: Plan 1. Acute hypoxic respiratory failure secondary to CHF exacerbation unknown type with new onset A-fib/essential HTN/HLD ? Will continue with BiPAP as needed ? Continue with IV Lasix 40 mg twice daily ? Echo is pending ? She is little bit hyponatremic, will recheck in the morning ? Will hold her Norvasc as this can exacerbate her lower extremity edema ? Will monitor her blood pressure and make adjustments as necessary ? Continue with Crestor ? Will have further discussions with her the role of anticoagulation in A-fib 2. Glaucoma ? Continue with her eyedrops DVT: Lovenox 75 minutes was spent on direct patient care, including documentation as well as chart review and collaboration with colleagues Charges/Coding Visit Charges Inpatient E&M: 51359 Init Hosp L3
--- NOTE | 2024-06-11 14:29 | CHAPLAIN ---
Type of Pastoral Visit _x__ Initial Visit ___ Follow-up Visit ___ On-call Visit ___ General Patient Visit ___ Spiritual Assessment ___ Family Conference ___ Bereavement ___ Rapid Response ___ Code Blue ___ Other (describe below) Pastoral Care Referral From _x__ Patient ___ Family ___ Nurse ___ Physician ___ Court Administrator ___ County Auditor ___ Other (describe below) Sacrament/Intervention _x__ Active listening ___ Anointing ___ Faith ___ Bereavement ___ Communion _x__ Gisella exploration ___ ___ Life review _x__ Prayer ___ Reconciliation ___ Sacrament of Sick ___ Supportive presence ___ Wedding ___ Other (describe below) Pastoral Comments patient asked questions; pt stated that a prayer would be appreciated; pt noted that she hoped to have a nap now and so the encounter was finished
[2024-06-11] MEDS: 0.9% Saline Lock 10 ML Syringe IV ×3 (17:58→21:47)
[2024-06-11] MEDS: Atorvastatin Calcium 20 MG Tablet PO (21:33)
[2024-06-11] MEDS: Latanoprost 0.005% 1 Bottle 1 DRP EACH EYE (21:34)
[2024-06-12] VITALS (15 sets, daily range): BP systolic 105–124; BP diastolic 54–79; PULSE 72–90; RESP 12–24; TEMP 36.6–36.8; O2SAT 93–99; BMI 30.6
[2024-06-12 06:03] LABS: Absolute Lymphocyte Count 0.75 X10^3/uL (0.83-4.51); Absolute Neutrophil Count 6.1 X10^3/uL (2.0-7.7); Basophil# 0.01 X10^3/uL; Basophil% 0.1 % (0-1); Eosinophil# 0.03 X10^3/uL; Eosinophils% 0.4 % (0-5); Hemoglobin 9.8 g/dL (12.0-15.0); Lymphocyte # 0.75 X10^3/ul (0.83-4.51); Lymphocyte % 9.7 % (19-41); Mean Corpuscular Hgb 29.6 pg (27.0-32.0); Mean Corpuscular Volume 84.6 fL (81-99); Mean Platelet Vol. 11.7 fl (6.2-12.0); Monocyte# 0.76 X10^3/uL; Monocyte% 9.8 % (0-10); NRBC Flagged by Analyzer 0 % (0-5); Neutrophil # 6.14 X10^3/uL (2.7-7.7); Neutrophil % 79.5 % (47-70); Platelet Count 230 K/mm3 (150-450); RBC Distribution Width CV 13.2 % (11.6-14.6); RBC Distribution Width SD 41.1 fl (35.1-43.9); Red Blood Count 3.31 M/mm3 (4.2-5.4); White Blood Count 7.7 K/mm3 (4.4-11.0)
[2024-06-12 06:20] LABS: Anion Gap 9 (5-15); BUN 15 mg/dL (7-18); BUN/Creat Ratio 19.9 RATIO (10-20); Calcium,Total 8.8 mg/dL (8.5-10.1); Chloride 88 mmol/L (98-107); Creatinine, Serum 0.76 mg/dL (0.55-1.02); EST Glomerular Filtration Rate 77 mL/min (>60); Est Glom Filt Rate - Afr Amer 93 mL/min (>60); Estimated Creatinine Clearance 41.26 ml/min; Glucose 103 mg/dL (74-106); Potassium 3.1 mmol/L (3.5-5.1); Sodium Level 125 mmol/L (136-145)
--- NOTE | 2024-06-12 08:00 | RAD_ITS ---
PROCEDURE: CHEST 1 VIEW (PORTABLE) Erase that REASON FOR EXAM: Pleural effusion. Shortness of breath. TECHNIQUE: Portable chest radiograph was obtained. COMPARISON: Comparison is made with prior study dated June 11, 2024. FINDINGS: EKG electrodes are seen. Persistent bilateral pleural effusions worse on the left side. There has been mild improvement. Bibasilar atelectasis more prominent at the left lung base. Residual mild CHF although there has been improvement. Marked degree of degenerative changes of both shoulder joints. RAD/Chest 1 View (Portable) IMPRESSION: Improved aeration although residual bilateral pleural effusions with bibasilar atelectasis and CHF. Reading Location: [facility]
[2024-06-12] MEDS: Furosemide 40 MG/4 ML Vial IV ×2 (10:39→18:00)
[2024-06-12] MEDS: 0.9% Saline Lock 10 ML Syringe IV (10:39)
[2024-06-12] MEDS: Metoprolol Tartrate 25 MG Tablet 12.5 MG PO ×2 (10:41→21:17)
--- NOTE | 2024-06-12 12:20 | CASEMGMT ---
HERMELINDO TORREZ Face to Face with patient for initial transition planning/care coordination assessment. RN CM introduced self and role at [facility]. Patient lying in bed, alert and oriented. Patient willing to participate in assessment and is able to answer all questions appropriately. Care providers, pharmacy, and demographics verified. Strata: 1 PCP: Tin Specialists: Marcy maintenance of way clerk Preferred Pharmacy: [facility] Retail Insurance: [facility] Prescription Benefit: yes Living Will/HPOA: yes, son Royce and Harjeet Davis LNOK: sons Living Arrangements: Patient lives with son in a single story home with ramp to enter. Patient is independent at home. Transportation: self, son DME/HHC: Kacyt has shower chair, raised toilet, cane, walker, and grab bars at home. Will monitor for oxygen, prefers [employer]. No previous HHC. Patient has been to TCU in the past. Patient wishes to discharge home and is interested in HHC, DC director strategic planning to provide HHC list. Patient states she has no further needs or concerns at this time. CM to follow for discharge planning needs that may arise. Disposition Plan: Patient to discharge home with HHC, family support, and follow-up plans in place. Will monitor for home oxygen. Hollie CAMPUZANO, RN, CM
--- NOTE | 2024-06-12 13:02 | CASEMGMT ---
Discharge Planning A list of HH providers including quality and resource use data and consistent with the patient's preferred geographic region, medical needs, and insurance network was created in [employer] Guide.? This list was provided to the patient. Annalee Hu, Discharge Planning Asst.
--- NOTE | 2024-06-12 13:10 | US_ITS ---
EXAM: CHEST CLINICAL HISTORY: Assessment of pleural effusion. COMPARISON: None. TECHNIQUE: Imaging of both pleural spaces was obtained. FINDINGS: Not enough fluid for safe thoracentesis. US/Chest IMPRESSION: Not enough fluid for a safe thoracentesis. Reading Location: [id number]
--- NOTE | 2024-06-12 13:11 | PCM.PN.HOSP ---
Subjective Subjective Doing well, breathes better with the BiPAP. Objective Data Objective Data Vital Signs: Vital Signs Temp Pulse Resp BP Pulse Ox O2 Del Method O2 Flow Rate 98.2 F 80 22 H 122/66 H 94 High Flow 10 06/12/24 10:31 06/12/24 10:41 06/12/24 10:31 06/12/24 10:31 06/12/24 12:50 06/12/24 12:50 06/12/24 12:50 FiO2 45 06/11/24 23:45 Oxygen Flow Rate (L/min) 10 Oxygen Delivery Method High Flow Weight: 151 lb 10.848 oz Body Mass Index (BMI) 30.6 Intake & Output: Intake and Output for Last 24 Hours 06/11/24 06/12/24 06/13/24 03:59 03:59 03:59 Intake Total 360 / 360 100 / 100 Output Total 100 / 100 Balance 260 / 260 100 / 100 Lab / Micro Data 06/12/24 05:16 06/12/24 05:16 Labs: Laboratory Results - last 24 hr 06/11/24 07:55: TSH 1.750 06/12/24 05:16: WBC 7.7, RBC 3.31 L, Hgb 9.8 L, Hct 28.0 L, MCV 84.6, MCH 29.6, MCHC 35.0, RDW Std Deviation 41.1, RDW Coeff of Dioni 13.2, Plt Count 230, MPV 11.7, Immature Gran % (Auto) 0.500, Neut % (Auto) 79.5 H, Lymph % (Auto) 9.7 L, [place] % (Auto) 9.8, Eos % (Auto) 0.4, Baso % (Auto) 0.1, Absolute Neuts (auto) 6.1, Absolute Lymphs (auto) 0.75 L, Nucleated RBC % 0, Sodium 125 L, Potassium 3.1 L, Chloride 88 L, Carbon Dioxide 28.0, Anion Gap 9, BUN 15, Creatinine 0.76, Estim Creat Clear Calc 41.26, Est GFR (MDRD) Af Amer 93, Est GFR (MDRD) Non-Af 77, BUN/Creatinine Ratio 19.9, Glucose 103, Calcium 8.8 Micro: Microbiology 06/11/24 07:50 Mucosa - Nose SARS-CoV-2, Influenza & RSV (PCR) - Final Radiography Diagnostic Testing: Radiology Impression Echocardiogram 06/11/24 14:27 Interpretation Summary Normal LV size. Left ventricular systolic function is normal. The left ventricular ejection fraction is 60 %. Mild (1+) mitral valve insufficiency. Pulmonary artery systolic pressure is 46 mmHg. Ordering Physician: Aly Hagan Performed By: Elizabeth Acuna RDCS Chest X-Ray 06/12/24 08:00 IMPRESSION: Improved aeration although residual bilateral pleural effusions with bibasilar atelectasis and CHF. Reading Location: [facility] Physical Exam Narrative General: Alert, Oriented x3, Cooperative, mild respiratory distress HEENT: Atraumatic, PERRLA, EOMI, Normocephalic Oral: Moist Mucosa Neck: Supple, No JVD Lungs: Diminished, Normal air movement, No rhonchi, No wheeze, No rales, tachypneic mild increased work of breathing Cardiovascular: Regular rate and rhythm, Normal S1, Normal S2, No murmurs Abdomen: Soft, Non Tender, Non-Distended, No Hepato-splenomegaly Extremities: Edema, Capillary Refill Less than 3 Seconds Skin: No rashes, No breakdown Musculoskeletal: No Tenderness to Palpation of Joints or Extremities Neurological: No focal neurological deficits, Motor Exam 5/5 strength throughout, Sensory exam intact to light touch and pain Psych/Mental Status: Normal Affect, Appropriate Assessment & Plan Assessment/Plan (1) CHF (congestive heart failure): (2) Respiratory failure: (3) Pleural effusion: (4) Atrial fibrillation, new onset: PLAN: Plan 1. Acute hypoxic respiratory failure secondary to CHF exacerbation unknown type with new onset A-fib/essential HTN/HLD ? Will continue with BiPAP as needed ? Continue with IV Lasix 40 mg twice daily ? Echo with an EF of 60% and a PASP of 46 mmHg indicating likely diastolic dysfunction ? She is little bit hyponatremic, will recheck in the morning ? Will hold her Norvasc as this can exacerbate her lower extremity edema ? Will monitor her blood pressure and make adjustments as necessary ? Continue with Crestor ? Will have further discussions with her the role of anticoagulation in A-fib ? Chest x-ray this morning demonstrates mild improvement therefore we will proceed with a thoracentesis of possible today 2. Glaucoma ? Continue with her eyedrops DVT: Lovenox was held this morning in anticipation of possible thoracentesis Charges/Coding Visit Charges Inpatient E&M: 11022 Subs Hosp L2
[2024-06-12] MEDS: Atorvastatin Calcium 20 MG Tablet PO (21:17)
[2024-06-12] MEDS: Latanoprost 0.005% 1 Bottle 1 DRP EACH EYE (21:18)
[2024-06-13] VITALS (21 sets, daily range): BP systolic 112–128; BP diastolic 49–75; PULSE 69–87; RESP 12–20; TEMP 36.6–37.1; O2SAT 90–100; BMI 30.4
[2024-06-13 06:55] LABS: Basophil# 0.03 X10^3/uL; Basophil% 0.4 % (0-1); Eosinophil# 0.08 X10^3/uL; Hematocrit 28.9 % (37-47); Hemoglobin 10.2 g/dL (12.0-15.0); Lymphocyte % 12.2 % (19-41); Mean Corp Hgb Conc 35.3 g/dL (32-36); Mean Corpuscular Hgb 29.7 pg (27.0-32.0); Mean Corpuscular Volume 84.3 fL (81-99); Mean Platelet Vol. 11.3 fl (6.2-12.0); Monocyte# 1.11 X10^3/uL; Monocyte% 13.5 % (0-10); NRBC Flagged by Analyzer 0 % (0-5); Neutrophil # 5.97 X10^3/uL (2.7-7.7); Neutrophil % 72.5 % (47-70); Platelet Count 236 K/mm3 (150-450); RBC Distribution Width CV 13.1 % (11.6-14.6); Red Blood Count 3.43 M/mm3 (4.2-5.4); White Blood Count 8.2 K/mm3 (4.4-11.0)
[2024-06-13 07:40] LABS: Anion Gap 11 (5-15); BUN 11 mg/dL (7-18); BUN/Creat Ratio 16.7 RATIO (10-20); Calcium,Total 8.3 mg/dL (8.5-10.1); Chloride 85 mmol/L (98-107); Creatinine, Serum 0.66 mg/dL (0.55-1.02); EST Glomerular Filtration Rate 90 mL/min (>60); Est Glom Filt Rate - Afr Amer 109 mL/min (>60); Estimated Creatinine Clearance 41.11 ml/min; Glucose 96 mg/dL (74-106); Potassium 2.5 mmol/L (3.5-5.1); Sodium Level 125 mmol/L (136-145)
[2024-06-13] MEDS: Enoxaparin 40 MG/0.4 ML Syringe SC (08:13)
[2024-06-13] MEDS: Metoprolol Tartrate 25 MG Tablet 12.5 MG PO ×2 (08:13→20:51)
[2024-06-13 08:38] LABS: Phosphorus 2.7 mg/dL (2.5-4.9)
--- NOTE | 2024-06-13 11:09 | PN.HOSP_ITS ---
Subjective Subjective Doing well, seems to be breathing a bit better today. She is currently down to 4 L nasal cannula Objective Data Objective Data Vital Signs: Vital Signs Temp Pulse Resp BP Pulse Ox O2 Del Method O2 Flow Rate 98.3 F 84 20 H 118/49 L 93 Nasal Cannula 4 06/13/24 08:03 06/13/24 08:13 06/13/24 08:03 06/13/24 08:13 06/13/24 08:22 06/13/24 08:22 06/13/24 08:22 FiO2 30 06/13/24 02:43 Oxygen Flow Rate (L/min) 4 Oxygen Delivery Method Nasal Cannula Weight: 150 lb 9.211 oz Body Mass Index (BMI) 30.4 Intake & Output: Intake and Output for Last 24 Hours 06/12/24 06/13/24 06/14/24 03:59 03:59 03:59 Intake Total 360 / 360 600 / 600 0 / 0 Output Total 100 / 100 1350 / 1350 0 / 0 Balance 260 / 260 -750 / -750 0 / 0 Lab / Micro Data 06/13/24 06:21 06/13/24 06:21 Labs: Laboratory Results - last 24 hr 06/13/24 06:21: WBC 8.2, RBC 3.43 L, Hgb 10.2 L, Hct 28.9 L, MCV 84.3, MCH 29.7, MCHC 35.3, RDW Std Deviation 40.0, RDW Coeff of Dioni 13.1, Plt Count 236, MPV 11.3, Immature Gran % (Auto) 0.400, Neut % (Auto) 72.5 H, Lymph % (Auto) 12.2 L, [place] % (Auto) 13.5 H, Eos % (Auto) 1.0, Baso % (Auto) 0.4, Absolute Neuts (auto) 6.0, Absolute Lymphs (auto) 1.00, Nucleated RBC % 0, Sodium 125 L, Potassium 2.5 L*, Chloride 85 L, Carbon Dioxide 29.0, Anion Gap 11, BUN 11, Creatinine 0.66, Estim Creat Clear Calc 41.11, Est GFR (MDRD) Af Amer 109, Est GFR (MDRD) Non-Af 90, BUN/Creatinine Ratio 16.7, Glucose 96, Calcium 8.3 L, Phosphorus 2.7, Magnesium 2.0 Micro: Microbiology 06/11/24 07:50 Mucosa - Nose SARS-CoV-2, Influenza & RSV (PCR) - Final Radiography Diagnostic Testing: Radiology Impression Chest Ultrasound 06/12/24 13:10 IMPRESSION: Not enough fluid for a safe thoracentesis. Reading Location: [facility] Physical Exam Narrative General: Alert, Oriented x3, Cooperative, no acute distress HEENT: Atraumatic, PERRLA, EOMI, Normocephalic Oral: Moist Mucosa Neck: Supple, No JVD Lungs: Diminished, Normal air movement, No rhonchi, No wheeze, No rales Cardiovascular: Regular rate and rhythm, Normal S1, Normal S2, No murmurs Abdomen: Soft, Non Tender, Non-Distended, No Hepato-splenomegaly Extremities: Trace edema, Capillary Refill Less than 3 Seconds Skin: No rashes, No breakdown Musculoskeletal: No Tenderness to Palpation of Joints or Extremities Neurological: No focal neurological deficits, Motor Exam 5/5 strength throughout, Sensory exam intact to light touch and pain Psych/Mental Status: Normal Affect, Appropriate Assessment & Plan Assessment/Plan (1) CHF (congestive heart failure): (2) Respiratory failure: (3) Pleural effusion: (4) Atrial fibrillation, new onset: PLAN: Plan 1. Acute hypoxic respiratory failure secondary to acute on chronic diastolic CHF exacerbation with new onset A-fib/essential HTN/HLD ? Will continue with BiPAP as needed ? Continue with IV Lasix 40 mg twice daily ? Echo with an EF of 60% and a PASP of 46 mmHg indicating likely diastolic dysfunction ? Sodium is staying at 125 ? Will hold her Norvasc as this can exacerbate her lower extremity edema ? Will monitor her blood pressure and make adjustments as necessary ? Continue with Crestor ? Will have further discussions with her the role of anticoagulation in A-fib ? Chest x-ray this morning demonstrates mild improvement therefore we will proceed with a thoracentesis of possible today 2. Glaucoma ? Continue with her eyedrops DVT: Lovenox Charges/Coding Visit Charges Inpatient E&M: 32934 Subs Hosp L2
[2024-06-13] MEDS: Potassium Chloride Oral Tablet 20 MEQ 60 MEQ PO (11:34)
[2024-06-13] MEDS: Furosemide 40 MG/4 ML Vial IV ×2 (12:27→17:45)
[2024-06-13] MEDS: Potassium Chloride 10mEq/100mL 10 MEQ/100 ML IV.SOLN. 100 MEQ IV BOLUS ×4 (12:29→16:26)
[2024-06-13] MEDS: 0.9% Saline Lock 10 ML Syringe IV (17:46)
[2024-06-13] MEDS: Atorvastatin Calcium 20 MG Tablet PO (20:51)
[2024-06-13] MEDS: Latanoprost 0.005% 1 Bottle 1 DRP EACH EYE (20:52)
--- NOTE | 2024-06-13 21:14 | CPS ---
Patient refused PAP therapy for night time use. On 2L 93%
[2024-06-14] VITALS (10 sets, daily range): BP systolic 102–129; BP diastolic 49–70; PULSE 76–86; RESP 12–18; TEMP 36–36.6; O2SAT 87–99; BMI 29.2
[2024-06-14 05:40] LABS: Anion Gap 9 (5-15); BUN 12 mg/dL (7-18); BUN/Creat Ratio 17.2 RATIO (10-20); Calcium,Total 8.6 mg/dL (8.5-10.1); Chloride 88 mmol/L (98-107); EST Glomerular Filtration Rate 84 mL/min (>60); Est Glom Filt Rate - Afr Amer 102 mL/min (>60); Estimated Creatinine Clearance 40.32 ml/min; Glucose 90 mg/dL (74-106); Potassium 2.9 mmol/L (3.5-5.1); Sodium Level 127 mmol/L (136-145)
[2024-06-14] MEDS: Metoprolol Tartrate 25 MG Tablet 12.5 MG PO ×2 (09:14→21:00)
[2024-06-14] MEDS: Enoxaparin 40 MG/0.4 ML Syringe SC (09:14)
[2024-06-14] MEDS: Potassium Chloride Oral Tablet 20 MEQ 60 MEQ PO (09:14)
[2024-06-14] MEDS: Furosemide 40 MG/4 ML Vial IV ×2 (09:15→17:18)
[2024-06-14] MEDS: 0.9% Saline Lock 10 ML Syringe IV ×3 (09:19→21:02)
--- NOTE | 2024-06-14 10:00 | PCM.PN.HOSP ---
Subjective Subjective Doing well, no issues overnight. Breathing better Objective Data Objective Data Vital Signs: Vital Signs Temp Pulse Resp BP Pulse Ox O2 Del Method O2 Flow Rate 97.9 F 79 18 111/59 L 96 Nasal Cannula 3 06/14/24 09:12 06/14/24 09:14 06/14/24 09:12 06/14/24 09:12 06/14/24 09:12 06/14/24 09:12 06/14/24 09:12 FiO2 30 06/13/24 02:43 Oxygen Flow Rate (L/min) 3 Oxygen Delivery Method Nasal Cannula Weight: 144 lb 13.499 oz Body Mass Index (BMI) 29.2 Intake & Output: Intake and Output for Last 24 Hours 06/13/24 06/14/24 06/15/24 03:59 03:59 03:59 Intake Total 600 / 600 400 / 400 Output Total 1350 / 1350 1225 / 1225 Balance -750 / -750 -825 / -825 Lab / Micro Data 06/13/24 06:21 06/14/24 03:54 Labs: Laboratory Results - last 24 hr 06/14/24 03:54: Sodium 127 L, Potassium 2.9 L, Chloride 88 L, Carbon Dioxide 29.0, Anion Gap 9, BUN 12, Creatinine 0.70, Estim Creat Clear Calc 40.32, Est GFR (MDRD) Af Amer 102, Est GFR (MDRD) Non-Af 84, BUN/Creatinine Ratio 17.2, Glucose 90, Calcium 8.6 Micro: Microbiology 06/11/24 07:50 Mucosa - Nose SARS-CoV-2, Influenza & RSV (PCR) - Final Physical Exam Narrative General: Alert, Oriented x3, Cooperative, no acute distress HEENT: Atraumatic, PERRLA, EOMI, Normocephalic Oral: Moist Mucosa Neck: Supple, No JVD Lungs: Diminished, Normal air movement, No rhonchi, No wheeze, No rales Cardiovascular: Regular rate and rhythm, Normal S1, Normal S2, No murmurs Abdomen: Soft, Non Tender, Non-Distended, No Hepato-splenomegaly Extremities: No edema, Capillary Refill Less than 3 Seconds Skin: No rashes, No breakdown Musculoskeletal: No Tenderness to Palpation of Joints or Extremities Neurological: No focal neurological deficits, Motor Exam 5/5 strength throughout, Sensory exam intact to light touch and pain Psych/Mental Status: Normal Affect, Appropriate Assessment & Plan Assessment/Plan (1) CHF (congestive heart failure): (2) Respiratory failure: (3) Pleural effusion: (4) Atrial fibrillation, new onset: PLAN: Plan 1. Acute hypoxic respiratory failure secondary to acute on chronic diastolic CHF exacerbation with new onset A-fib/essential HTN/HLD ? Will continue with BiPAP as needed ? Continue with IV Lasix 40 mg twice daily ? Echo with an EF of 60% and a PASP of 46 mmHg indicating likely diastolic dysfunction ?She is finally starting to lose weight and her sodium is starting to climb ? Will hold her Norvasc as this can exacerbate her lower extremity edema ? Will monitor her blood pressure and make adjustments as necessary ? Continue with Crestor ? Will have further discussions with her the role of anticoagulation in A-fib ?Not enough fluid to drain on thoracentesis. Will continue with diuresis as her renal function is handling it 2. Glaucoma ? Continue with her eyedrops DVT: Lovenox Charges/Coding Visit Charges Inpatient E&M: 84442 Subs Hosp L2
[2024-06-14] MEDS: Atorvastatin Calcium 20 MG Tablet PO (21:01)
[2024-06-14] MEDS: Latanoprost 0.005% 1 Bottle 1 DRP EACH EYE (21:01)
[2024-06-15] VITALS (11 sets, daily range): BP systolic 115–127; BP diastolic 59–74; PULSE 62–78; RESP 12–18; TEMP 36.4–36.8; O2SAT 87–98; BMI 29.1
[2024-06-15 07:27] LABS: Absolute Lymphocyte Count 1.37 X10^3/uL (0.83-4.51); Absolute Neutrophil Count 6.1 X10^3/uL (2.0-7.7); Basophil# 0.04 X10^3/uL; Basophil% 0.4 % (0-1); Eosinophil# 0.21 X10^3/uL; Eosinophils% 2.4 % (0-5); Hematocrit 31.6 % (37-47); Hemoglobin 10.8 g/dL (12.0-15.0); Lymphocyte # 1.37 X10^3/ul (0.83-4.51); Lymphocyte % 15.4 % (19-41); Mean Corp Hgb Conc 34.2 g/dL (32-36); Mean Corpuscular Hgb 29.5 pg (27.0-32.0); Mean Corpuscular Volume 86.3 fL (81-99); Mean Platelet Vol. 11.3 fl (6.2-12.0); Monocyte# 1.17 X10^3/uL; Monocyte% 13.2 % (0-10); NRBC Flagged by Analyzer 0 % (0-5); Neutrophil # 6.06 X10^3/uL (2.7-7.7); Neutrophil % 68.2 % (47-70); Platelet Count 276 K/mm3 (150-450); RBC Distribution Width CV 13.2 % (11.6-14.6); RBC Distribution Width SD 41.7 fl (35.1-43.9); Red Blood Count 3.66 M/mm3 (4.2-5.4); White Blood Count 8.9 K/mm3 (4.4-11.0)
[2024-06-15 08:41] LABS: Anion Gap 8 (5-15); BUN 13 mg/dL (7-18); BUN/Creat Ratio 18.3 RATIO (10-20); Calcium,Total 8.9 mg/dL (8.5-10.1); Chloride 93 mmol/L (98-107); Creatinine, Serum 0.71 mg/dL (0.55-1.02); EST Glomerular Filtration Rate 82 mL/min (>60); Est Glom Filt Rate - Afr Amer 99 mL/min (>60); Estimated Creatinine Clearance 40.26 ml/min; Glucose 89 mg/dL (74-106); Potassium 3.5 mmol/L (3.5-5.1); Sodium Level 128 mmol/L (136-145)
[2024-06-15] MEDS: Metoprolol Tartrate 25 MG Tablet 12.5 MG PO ×2 (08:55→22:30)
[2024-06-15] MEDS: Furosemide 40 MG/4 ML Vial IV ×2 (08:56→17:16)
[2024-06-15] MEDS: 0.9% Saline Lock 10 ML Syringe IV ×2 (08:56→17:16)
[2024-06-15] MEDS: Enoxaparin 40 MG/0.4 ML Syringe SC (08:56)
--- NOTE | 2024-06-15 09:56 | PN.HOSP_ITS ---
Subjective Subjective Doing well, no issues overnight Objective Data Objective Data Vital Signs: Vital Signs Temp Pulse Resp BP Pulse Ox O2 Del Method O2 Flow Rate 98.0 F 76 14 120/70 93 Room Air 1.5 06/15/24 08:48 06/15/24 08:55 06/15/24 08:48 06/15/24 08:48 06/15/24 08:48 06/15/24 08:48 06/14/24 19:30 FiO2 30 06/15/24 03:00 Oxygen Flow Rate (L/min) 1.5 Oxygen Delivery Method Room Air Weight: 144 lb 6.444 oz Body Mass Index (BMI) 29.1 Intake & Output: Intake and Output for Last 24 Hours 06/14/24 06/15/24 06/16/24 03:59 03:59 03:59 Intake Total 400 / 400 640 / 640 150 / 150 Output Total 1225 / 1225 975 / 975 Balance -825 / -825 -335 / -335 150 / 150 Lab / Micro Data 06/15/24 06:41 06/15/24 06:41 Labs: Laboratory Results - last 24 hr 06/15/24 06:41: WBC 8.9, RBC 3.66 L, Hgb 10.8 L, Hct 31.6 L, MCV 86.3, MCH 29.5, MCHC 34.2, RDW Std Deviation 41.7, RDW Coeff of Dioni 13.2, Plt Count 276, MPV 11.3, Immature Gran % (Auto) 0.400, Neut % (Auto) 68.2, Lymph % (Auto) 15.4 L, M theo % (Auto) 13.2 H, Eos % (Auto) 2.4, Baso % (Auto) 0.4, Absolute Neuts (auto) 6.1, Absolute Lymphs (auto) 1.37, Nucleated RBC % 0, Sodium 128 L, Potassium 3.5, Chloride 93 L, Carbon Dioxide 27.0, Anion Gap 8, BUN 13, Creatinine 0.71, Estim Creat Clear Calc 40.26, Est GFR (MDRD) Af Amer 99, Est GFR (MDRD) Non-Af 82, BUN/Creatinine Ratio 18.3, Glucose 89, Calcium 8.9 Micro: Microbiology 06/11/24 07:50 Mucosa - Nose SARS-CoV-2, Influenza & RSV (PCR) - Final Physical Exam Narrative General: Alert, Oriented x3, Cooperative, no acute distress HEENT: Atraumatic, PERRLA, EOMI, Normocephalic Oral: Moist Mucosa Neck: Supple, No JVD Lungs: Diminished, Normal air movement, No rhonchi, No wheeze, No rales Cardiovascular: Regular rate and rhythm, Normal S1, Normal S2, No murmurs Abdomen: Soft, Non Tender, Non-Distended, No Hepato-splenomegaly Extremities: No edema, Capillary Refill Less than 3 Seconds Skin: No rashes, No breakdown Musculoskeletal: No Tenderness to Palpation of Joints or Extremities Neurological: No focal neurological deficits, Motor Exam 5/5 strength throughout, Sensory exam intact to light touch and pain Psych/Mental Status: Normal Affect, Appropriate Assessment & Plan Assessment/Plan (1) CHF (congestive heart failure): (2) Respiratory failure: (3) Pleural effusion: (4) Atrial fibrillation, new onset: PLAN: Plan 1. Acute hypoxic respiratory failure secondary to acute on chronic diastolic CHF exacerbation with new onset A-fib/essential HTN/HLD ? Will continue with BiPAP as needed ? Continue with IV Lasix 40 mg twice daily ? Echo with an EF of 60% and a PASP of 46 mmHg indicating likely diastolic dysfunction ?She is finally starting to lose weight and her sodium is starting to climb ? Will hold her Norvasc as this can exacerbate her lower extremity edema ? Will monitor her blood pressure and make adjustments as necessary ? Continue with Crestor ?Plan for an amatory pulse ox today 2. Glaucoma ? Continue with her eyedrops DVT: Lovenox Charges/Coding Visit Charges Inpatient E&M: 12736 Subs Hosp L2
--- NOTE | 2024-06-15 21:15 | CPS ---
Pt refused BIPAP for tonight. Pt on Room Air.
[2024-06-15] MEDS: Latanoprost 0.005% 1 Bottle 1 DRP EACH EYE (22:29)
[2024-06-15] MEDS: Atorvastatin Calcium 20 MG Tablet PO (22:30)
[2024-06-16] VITALS (7 sets, daily range): BP systolic 91–112; BP diastolic 55–78; PULSE 70–81; RESP 16–20; TEMP 36.5–36.7; O2SAT 92–98; BMI 29.2
--- NOTE | 2024-06-16 10:25 | DCINST_ITS ---
Discharge Instructions Diet Discharge Diet: Low fat / Low cholesterol and 6 Cup Fluid Restriction DC O2, CPAP, BIPAP needs RN Home O2 Qualification: Home O2 Qualification: Is the patient on home oxygen No 06/15/24 10:57 Home O2 Qualification: AT REST 1- Pulse Ox at rest 96 06/15/24 10:57 Home O2 Qualification: WITH AMBULATION 1- Pulse Ox with ambulation 87 06/15/24 10:57 1- Oxygen Flow Rate with 0 06/15/24 10:57 ambulation 2- Pulse Ox with ambulation 94 06/15/24 10:57 2- Oxygen Flow Rate with 2 06/15/24 10:57 ambulation Home O2 Discharge instructions: No Dressing / Incision Discharge Activity: Return to Normal Activity Dressing / Incision Call your doctor if you observe: Fever of 101 or Higher, Shortness of breath, Dizziness, Fainting spells, Swelling in the ankles, Chest pain and Increased palpitations (irregular heartbeat) Follow Up Care Test Results: Test results from this visit will be discussed in further detail at your follow- up appointment, if applicable. Discharge Plan Admission Admit Date/Time: 06/11/24 09:17 Attending Provider: Aly Hagan Primary Care Provider: Anselmo Castle Instructions Patient Instructions: ZIYAD RN Thoracentesis Dc Discharge Orders/Prescriptions Prescriptions: New metoprolol tartrate 25 mg Tablet 25 mg PO BID 30 Days Qty: 60 0RF furosemide [Lasix] 40 mg tablet 40 mg PO DAILY Qty: 30 0RF Eliquis 5 mg tablet 5 mg PO BID 30 Days Qty: 60 0RF Continued latanoprost 1 DROP bottle 1 drp Each Eye QHS ergocalciferol (vitamin D2) [Vitamin D2] 50,000 UNIT capsule 1,000 unit PO DAILY rosuvastatin 10 MG tablet 10 mg PO DAILY Centrum Silver 1 EACH tablet 1 ea PO DAILY PreserVision Lutein 1 EACH capsule 1 ea PO BID Discontinued amlodipine 5 MG tablet 10 mg PO DAILY Referrals / Follow Up: Anselmo Castle MD [Primary Care Provider] - Within 1 Week Royce Chester MD [Med Staff - Active Staff] - Within 2 Weeks Disposition Disposition (needs filled in before D/C Order can be placed): Home, Self Care
[2024-06-16] MEDS: Metoprolol Tartrate 25 MG Tablet 12.5 MG PO (10:39)
[2024-06-16] MEDS: Enoxaparin 40 MG/0.4 ML Syringe SC (10:39)
[2024-06-16] MEDS: 0.9% Saline Lock 10 ML Syringe IV (10:54)
[2024-06-16] MEDS: Furosemide 40 MG/4 ML Vial IV (10:54)
[2024-06-16 11:25] LABS: Anion Gap 12 (5-15); BUN 14 mg/dL (7-18); BUN/Creat Ratio 14.5 RATIO (10-20); Chloride 92 mmol/L (98-107); Creatinine, Serum 0.97 mg/dL (0.55-1.02); EST Glomerular Filtration Rate 58 mL/min (>60); Est Glom Filt Rate - Afr Amer 70 mL/min (>60); Estimated Creatinine Clearance 33.26 ml/min; Glucose 218 mg/dL (74-106); Potassium 3.6 mmol/L (3.5-5.1); Sodium Level 131 mmol/L (136-145)
--- NOTE | 2024-06-16 13:42 | CASEMGMT ---
Addendum entered by Hollie Pugh 06/16/24 15:54: Patient has order for Diego, HERMELINDO TORREZ called [facility], no prescription coverage available, 30 day savings card applied. RN CM updated patient and encouraged her to discuss options with PCP, patient voiced understanding. Original Note: Patient has order for discharge. Patient does not qualify for home oxygen. HERMELINDO CM in to discuss needs at discharge. Patient ambulating SBA with nursing. Patient denies needs or help at discharge. Patient had no further question or concerns.
--- NOTE | 2024-06-16 14:32 | DS.PCM_ITS ---
Providers Date of Admission: 06/11/24 Primary Care Physician: Dr. Anselmo Castle MD Reason For Visit: NEW AFIB WITH FAILURE AND PLEURAL EFFUSIONS Diagnosis Discharge Diagnosis (1) CHF (congestive heart failure): Status: Acute Code(s): I50.9 - Heart failure, unspecified (2) Respiratory failure: Status: Acute Code(s): J96.90 - Respiratory failure, unspecified, unspecified whether with hypoxia or hypercapnia (3) Pleural effusion: Status: Acute Code(s): J90 - Pleural effusion, not elsewhere classified (4) Atrial fibrillation, new onset: Status: Acute Code(s): I48.91 - Unspecified atrial fibrillation Medications at Discharge Home Medications ergocalciferol (vitamin D2) 1,250 mcg (50,000 unit) capsule (Vitamin D2) 1,000 unit PO DAILY SUPPLEMENT 07/11/18 latanoprost 0.005 % eye drops 1 drp QHS EYE DROPS 07/11/18 [id number]-qyj-gqpxg acid 0.4 mg-lycopene 300 mcg-lutein 250 mcg tablet (Centrum Silver) 1 ea PO DAILY SUPPLEMENT 07/11/18 rosuvastatin 10 mg tablet 10 mg PO DAILY CHOLESTEROL 07/11/18 vit C 226 mg-vit E 90 mg-copper 0.8 mg-zinc oxide-lutein 5 mg capsule (PreserVision Lutein) 1 ea PO BID SUPPLEMENT 07/11/18 apixaban 5 mg tablet (Eliquis) 5 mg PO BID 30 days #60 tabs 06/16/24 furosemide 40 mg tablet (Lasix) 40 mg PO DAILY #30 tabs 06/16/24 metoprolol tartrate 25 mg tablet 25 mg PO BID 30 days #60 tabs 06/16/24 Hospital Course Operations None Procedures 2-D Echocardiogram Summary of Care Provided Minutes Spent on Discharge: 35 Hospital Course: Per HPI: DESMOND OBRIEN, is a 88 F who presents to the hospital with increasing shortness of breath since Saturday. Viral workup was unremarkable and she was noted to have bilateral pleural effusions with the right being greater than the left with compressive atelectasis. She has a slight leukocytosis to 11 but no obvious infective symptoms, she is afebrile. While here in the hospital in the ER she was found to be in A-fib, her heart rate was in the low 90s to 100s so she was given a dose of oral Cardizem and then transition to p.o. metoprolol. She is given a dose of Lasix as her BNP was elevated and a CTA of the chest was done as her D-dimer was elevated, this was negative for PE. Given the compressive atelectasis and bilateral pleural effusion she was also placed on BiPAP in the ER. Hospital Course: 1. Acute hypoxic respiratory failure secondary to acute on chronic diastolic CHF exacerbation with new onset A-fib/essential HTN/HLD ? Continue with IV Lasix 40 mg twice daily ? Echo with an EF of 60% and a PASP of 46 mmHg indicating likely diastolic dysfunction ?She is finally starting to lose weight and her sodium is starting to climb ? Will hold her Norvasc as this can exacerbate her lower extremity edema ? Will monitor her blood pressure and make adjustments as necessary ? Continue with Crestor ?Plan for an amatory pulse ox today 06/16/2024: Ambulatory pulse ox did not require any oxygen at rest or with ambulation. She has diuresed very well and her renal function is tolerated this perfectly. I discussed with her the possibility for discharge today and she expressed understanding of the risks and benefits of going home and would like to go home today. Will discontinue her Norvasc as she will be started on metoprolol 25 mg p.o. twice daily as well as Lasix 40 mg p.o. daily. She will need to follow-up with cardiology as an outpatient for monitoring and medication adjustments as necessary. Given her A-fib, she was started on Eliquis 5 mg p.o. twice daily. We did discuss the risks with bruising and the fact that it can make bleeding worse, she did express understanding of these risks. 2. Glaucoma ? Continue with her eyedrops Physical Exam Narrative General: Alert, Oriented x3, Cooperative, no acute distress HEENT: Atraumatic, PERRLA, EOMI, Normocephalic Oral: Moist Mucosa Neck: Supple, No JVD Lungs: Diminished, Normal air movement, No rhonchi, No wheeze, No rales Cardiovascular: Regular rate, irregular rhythm, Normal S1, Normal S2, No murmurs Abdomen: Soft, Non Tender, Non-Distended, No Hepato-splenomegaly Extremities: No edema, Capillary Refill Less than 3 Seconds Skin: No rashes, No breakdown Musculoskeletal: No Tenderness to Palpation of Joints or Extremities Neurological: No focal neurological deficits, Motor Exam 5/5 strength throughout, Sensory exam intact to light touch and pain Psych/Mental Status: Normal Affect, Appropriate Weight / BMI Weight Weight: 144 lb 13.499 oz Body Mass Index (BMI) 29.2 ABG / Lab / Microbiology Data 06/15/24 06:41 06/16/24 10:41 Laboratory: Laboratory Results - last 24 hr 06/16/24 10:41: Sodium 131 L, Potassium 3.6, Chloride 92 L, Carbon Dioxide 27.0, Anion Gap 12, BUN 14, Creatinine 0.97, Estim Creat Clear Calc 33.26, Est GFR (MDRD) Af Amer 70, Est GFR (MDRD) Non-Af 58 L, BUN/Creatinine Ratio 14.5, G lucose 218 H, Calcium 9.0 Microbiology: Microbiology 06/11/24 07:50 Mucosa - Nose SARS-CoV-2, Influenza & RSV (PCR) - Final D/C Instructions Discharge Diet: Low fat / Low cholesterol and 6 Cup Fluid Restriction Call your doctor if you observe: Fever of 101 or Higher, Shortness of breath, Dizziness, Fainting spells, Swelling in the ankles, Chest pain and Increased palpitations (irregular heartbeat) DC O2, CPAP, BIPAP Needs RN Home O2 Qualification: Home O2 Qualification: Is the patient on home oxygen No 06/16/24 07:16 Home O2 Qualification: AT REST 1- Pulse Ox at rest 98 06/16/24 07:16 Home O2 Qualification: WITH AMBULATION 1- Pulse Ox with ambulation 92 06/16/24 07:16 1- Oxygen Flow Rate with 0 06/16/24 07:16 ambulation 2- Pulse Ox with ambulation 94 06/15/24 10:57 2- Oxygen Flow Rate with 2 06/15/24 10:57 ambulation PSN CPAP & BiPAP: BiPAP & CPAP Settings per PSN Mode BiPAP 06/15/24 03:00 Bipap Delivery Device Face Mask 06/15/24 03:00 BiPAP Inspiratory Pressure 12 06/15/24 03:00 BiPAP Expiratory Pressure 8 06/15/24 03:00 BiPAP Rate 12 06/15/24 03:00 Fraction of Inspired Oxygen ( 30 06/15/24 03:00 FIO2) Home O2 Discharge instructions: No Meaningful Use Info Meaningful Use Meaningful Use Diagnoses (Choose all that apply): None applicable Ischemic Stroke Statin Dosing Therapy Reference: STATIN DOSE THERAPY REFERENCE: * Patients > 75 years receive moderate or high dose statin therapy. * Patients 75 years or YOUNGER should receive HIGH intensity statin dose unless contraindicated. You will be required to document reason for non-treatment if statin daily dose does not meet guidelines. HIGH DOSE STATIN THERAPY DAILY Atorvastatin > than or = to 40 mg Rosuvastatin > than or = to 20 mg Amlodipine + Atorvastatin > than or = to 2.5/40 mg Ezetimibe + Simvastatin 10/80 mg Simvastatin 80mg Discharge Plan Admission Admit Date/Time: 06/11/24 09:17 Attending Provider: Aly Hagan Primary Care Provider: Anselmo Castle Instructions Patient Instructions: ZIYAD RN Thoracentesis Dc Discharge Orders/Prescriptions Prescriptions: New metoprolol tartrate 25 mg Tablet 25 mg PO BID 30 Days Qty: 60 0RF furosemide [Lasix] 40 mg tablet 40 mg PO DAILY Qty: 30 0RF Eliquis 5 mg tablet 5 mg PO BID 30 Days Qty: 60 0RF Continued latanoprost 1 DROP bottle 1 drp Each Eye QHS ergocalciferol (vitamin D2) [Vitamin D2] 50,000 UNIT capsule 1,000 unit PO DAILY rosuvastatin 10 MG tablet 10 mg PO DAILY Centrum Silver 1 EACH tablet 1 ea PO DAILY PreserVision Lutein 1 EACH capsule 1 ea PO BID Discontinued amlodipine 5 MG tablet 10 mg PO DAILY Referrals / Follow Up: Anselmo Castle MD [Primary Care Provider] - Within 1 Week Royce Chester MD [Med Staff - Active Staff] - Within 2 Weeks Disposition Disposition (needs filled in before D/C Order can be placed): Home, Self Care Charges/Coding Visit Charges Inpatient E&M: 35960 Disch Hosp >30min
--- NOTE | 2024-06-16 15:16 | PHA.DC_ITS ---
Pharmacy [facility] has performed discharge medication reconciliation and counseling for this patient. 1. APIXABAN 5MG PO BID 2. FUROSEMIDE 40MG PO DAILY 3. METOPROLOL TARTRATE 25MG PO BID The patient's discharge medication list was reviewed for discrepancies and discrepancies were resolved. The patient was counseled on the following discharge medications and changes in medications for homegoing were reviewed. The Reason for Use, instructions for use, and potential side effects were reviewed for all new medications. The patient's questions regarding all of their medications were answered. The patient was able to verbally demonstrate an understanding of their discharge medications. Medications at Discharge Home Medications ergocalciferol (vitamin D2) 1,250 mcg (50,000 unit) capsule (Vitamin D2) 1,000 unit PO DAILY SUPPLEMENT 07/11/18 latanoprost 0.005 % eye drops 1 drp QHS EYE DROPS 07/11/18 zorlacqh-prg-piwjz acid 0.4 mg-lycopene 300 mcg-lutein 250 mcg tablet (Centrum Silver) 1 ea PO DAILY SUPPLEMENT 07/11/18 rosuvastatin 10 mg tablet 10 mg PO DAILY CHOLESTEROL 07/11/18 vit C 226 mg-vit E 90 mg-copper 0.8 mg-zinc oxide-lutein 5 mg capsule (PreserVision Lutein) 1 ea PO BID SUPPLEMENT 07/11/18 apixaban 5 mg tablet (Eliquis) 5 mg PO BID 30 days #60 tabs 06/16/24 furosemide 40 mg tablet (Lasix) 40 mg PO DAILY #30 tabs 06/16/24 metoprolol tartrate 25 mg tablet 25 mg PO BID 30 days #60 tabs 06/16/24
== END 2024-06-16 16:51 | disposition home or self-care (01) | DRG 291 ==
LOC: ED 09:15 → PCU 09:54
PROVIDERS: Admitting Provider Family Medicine; Emergency Provider Emergency Medicine; PCP Family Medicine; Visit Provider Family Medicine
DX: I11.0 Hypertensive heart disease with heart failure (principal); J96.01 Acute respiratory failure with hypoxia; I50.33 Acute on chronic diastolic (congestive) heart failure; J90 Pleural effusion, not elsewhere classified; E87.1 Hypo-osmolality and hyponatremia; J98.11 Atelectasis; Z79.01 Long term (current) use of anticoagulants; I08.3 Combined rheumatic disorders of mitral, aortic and tricuspid valves; I48.91 Unspecified atrial fibrillation; E78.5 Hyperlipidemia, unspecified; M19.90 Unspecified osteoarthritis, unspecified site; Z82.3 Family history of stroke; H40.9 Unspecified glaucoma; Z88.2 Allergy status to sulfonamides; Z88.8 Allergy status to other drugs, medicaments and biological substances; Z79.899 Other long term (current) drug therapy; Z79.02 Long term (current) use of antithrombotics/antiplatelets; Z87.81 Personal history of (healed) traumatic fracture; Z98.41 Cataract extraction status, right eye; Z98.42 Cataract extraction status, left eye; Z96.659 Presence of unspecified artificial knee joint
CPT/HCPCS: 36415; 71045; 71275; 76604; 80048; 83735; 83880; 84100; 84443; 84484; 85025; 85379; 87631; 93005; 93306; 94002; 94003; 94762; 97162; 97166; 97530; 97535; 99285; Q9957; Q9967; A4216; J1940

== ENCOUNTER → 2024-07-02 | Outpatient (CLI) | payer MEDICARE, SELFPAY ==
[2024-07-02 17:10] LABS: Hematocrit 33.7 % (37-47); Hemoglobin 11.2 g/dL (12.0-15.0); Mean Corp Hgb Conc 33.2 g/dL (32-36); Mean Corpuscular Hgb 29.6 pg (27.0-32.0); Mean Corpuscular Volume 88.9 fL (81-99); Mean Platelet Vol. 10.8 fl (6.2-12.0); Platelet Count 256 K/mm3 (150-450); RBC Distribution Width CV 14.1 % (11.6-14.6); RBC Distribution Width SD 45.3 fl (35.1-43.9); Red Blood Count 3.79 M/mm3 (4.2-5.4); White Blood Count 6.3 K/mm3 (4.4-11.0)
[2024-07-02 18:54] LABS: Anion Gap 14 (5-15); BUN 23 mg/dL (4-19); BUN/Creat Ratio 25.2 RATIO (10-20); Calcium,Total 9.3 mg/dL (7.6-11.0); Carbon Dioxide 25.1 mmol/L (21.0-32.0); Chloride 96 mmol/L (98-108); Creatinine, Serum 0.91 mg/dL (0.70-1.20); EST Glomerular Filtration Rate 60 (>60); Glucose 95 mg/dL (70-99); Potassium 3.9 mmol/L (3.3-5.1); Sodium Level 135 mmol/L (133-145)
== END | disposition home or self-care (01) ==
PROVIDERS: PCP Family Medicine; Referring Provider Internal Medicine Cardiovascular Disease; Visit Provider Internal Medicine Cardiovascular Disease
DX: K62.5 Hemorrhage of anus and rectum (principal); I50.9 Heart failure, unspecified; I48.91 Unspecified atrial fibrillation
CPT/HCPCS: 36415; 80048; 85027